=== PATIENT | female | born 1960 | race Caucasian/White ===

== ENCOUNTER 2017-02-05 10:13 | Emergency (ER) | payer MEDICARE ==
[~2017-02-05] VITALS: Ht 170.2 cm; Wt 100.0 kg
[2017-02-05 10:18] VITALS: BP 115/68; PULSE 82; RESP 15; TEMP 98.8; O2SAT 98
--- NOTE | 2017-02-05 11:21 | PD ---
HPI Chief Complaint: Medical Clearance Time Seen by Provider: 11:06 Travel History International Travel<30 days: No Contact w/Intl Traveler<30days: No Traveled to known affect area: No History of Present Illness HPI 56 year-old female presents to emergency room for evaluation a left lower extremity pain with assisted erythema mild edema. Patient states she has noticed this worsening of the last 2-3 days. Talked history of blood clots. Denies any recent illnesses, fever, or chills. No recollection of injury. No other symptoms to report. PFSH Past Medical History Medical History: Denies Significant Hx Social History Alcohol Use: No Tobacco Use: No Substance Use: No Allergies-Medications (Allergen,Severity, Reaction): Coded Allergies: Sulfa (Sulfonamide Antibiotics) (Verified Allergy, Severe, HIVES, 02/05/17) Reported Meds & Prescriptions Reported Meds & Active Scripts Active Ibuprofen 600 Mg Tab 600 Mg PO Q8H PRN Keflex (Cephalexin) 500 Mg Cap 500 Mg PO Q6H 5 Days Review of Systems Except as stated in HPI: all other systems reviewed are Neg Physical Exam Narrative GENERAL: Well-nourished female patient, no acute distress SKIN: Focused skin assessment warm/dry. HEAD: Atraumatic. Normocephalic. EYES: Pupils equal and round. No scleral icterus. No injection or drainage. ENT: No nasal bleeding or discharge. Mucous membranes pink and moist. NECK: Trachea midline. No JVD. CARDIOVASCULAR: Regular rate and rhythm. No murmur appreciated. RESPIRATORY: No accessory muscle use. Clear to auscultation. Breath sounds equal bilaterally. GASTROINTESTINAL: Abdomen soft, non-tender, nondistended. Hepatic and splenic margins not palpable. MUSCULOSKELETAL: No obvious deformities. No clubbing. No cyanosis. Edema to the left lower extremity erythema extending from the mid calf proximally to the knee. Posterior calf is very tender to palpate. Ulcers are palpable. Cap refills within normal limits. NEUROLOGICAL: Awake and alert. No obvious cranial nerve deficits. Motor grossly within normal limits. Normal speech. PSYCHIATRIC: Appropriate mood and affect; insight and judgment normal. Data Data Last Documented VS Vital Signs Date Time Temp Pulse Resp B/P (MAP) Pulse Ox O2 Delivery O2 Flow Rate FiO2 02/05/17 10:18 98.8 82 15 115/68 (84) 98 Orders Orders Us Leg Venous Doppler (02/05/17 ) MDM Medical Decision Making Medical Screen Exam Complete: Yes Emergency Medical Condition: Yes Medical Record Reviewed: Yes Differential Diagnosis DVT versus SVT versus cellulitis versus contact dermatitis Narrative Course 56 year-old female presents to emergency department for evaluation left lower extremity pain with erythema and edema. Ultrasound shows no DVT. Patient was treated for cellulitis. She is counseled on care and agrees to return immediately with any acute worsening symptoms. Diagnosis Primary Impression: Cellulitis and abscess of left leg Referrals: Primary Care Physician Patient Instructions: Cellulitis (ED), General Instructions Additional Instructions: Cool compresses to the affected area Follow-up with the primary care provider Return immediately if any acute worsening symptoms Med/Other Pt SpecificInfo: Prescription(s) given Scripts Ibuprofen (Ibuprofen) 600 Mg Tab 600 MG PO Q8H Y for PAIN, #30 TAB 0 Refills Prov: Radha Ortega 02/05/17 Cephalexin (Keflex) 500 Mg Cap 500 MG PO Q6H for Infection for 5 Days, CAP 0 Refills Prov: Radha Ortega 02/05/17 Disposition: 01 DISCHARGE HOME Condition: Stable Radha Ortega Feb 05, 2017 11:21
--- NOTE | 2017-02-05 12:20 | RADRPT ---
EXAM DATE/TIME: 02/05/2017 11:33 [facility] COMPARISON: No previous studies available for comparison. INDICATIONS : Left leg redness. MEDICAL HISTORY : Left leg redness. Left leg pain. SURGICAL HISTORY : Back surgery. ENCOUNTER: Initial ACUITY: 3 days PAIN SCORE: 7/10 LOCATION: Left leg TECHNIQUE: Venous ultrasound of the leg was performed from the inguinal ligament to the proximal calf. Real-frank e, color Doppler and spectral tracing, compression and augmentation techniques were used. FINDINGS: There is normal compressibility of the deep venous system from the inguinal region to the proximal ca lf. No echogenic clot is seen in the lumen of the common femoral, femoral, popliteal, and posterior tibial veins. There is a normal response of the venous system to proximal and distal augmentation an d respiration. CONCLUSION: Negative exam with no evidence of deep venous thrombosis. Denzel Head MD on February 05, 2017 at 12:18 Board Certified Radiologist. This report was verified electronically.
[2017-02-05] MEDS ORDERED: IBUP-232 PO (12:30)
[2017-02-05] MEDS ORDERED: CEPH-460 PO (12:30)
== END 2017-02-05 12:15 | disposition home or self-care (01) ==
LOC: NEPD 10:13
DX: L03.116 Cellulitis of left lower limb (principal)
CPT/HCPCS: 93971; 99284

== ENCOUNTER 2017-05-15 13:02 | Emergency (ER) | payer OTHER, MEDICARE ==
[~2017-05-15 13:02] MED LIST: CEPH-460 PO; IBUP-232 PO
[2017-05-15 13:04] VITALS: BP 137/80; PULSE 81; RESP 16; TEMP 98.2; O2SAT 97
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
[2017-05-15] MEDS ORDERED: oxyCODONE/ACETAMINOPHEN 10 MG/325 MG TAB PO ONE (14:00)
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
== END 2017-05-15 15:57 | disposition home or self-care (01) ==
LOC: NEPK 13:02
DX: S13.9XXA Sprain of joints and ligaments of unspecified parts of neck, initial encounter (principal); S40.011A Contusion of right shoulder, initial encounter; M62.838 Other muscle spasm; M54.5 Low back pain; G89.29 Other chronic pain; V49.9XXA Car occupant (driver) (passenger) injured in unspecified traffic accident, initial encounter; Z86.718 Personal history of other venous thrombosis and embolism; Z88.2 Allergy status to sulfonamides; Z79.899 Other long term (current) drug therapy
CPT/HCPCS: 72125; 72131; 73030; 99284

== ENCOUNTER 2017-10-11 11:27 | Emergency (ER) | payer MEDICARE, OTHER ==
[~2017-10-11] VITALS: Ht 162.6 cm; Wt 95.0 kg
[~2017-10-11 11:27] MED LIST changes: -CEPH-460 PO; +DULO1CAP3 PO; +GABA300C5 PO; -IBUP-232 PO; +MORP1TAB26 PO; +PERC10TA27 PO; +TIZA2CAP3 PO; +VENL75TA2 PO; +XARE20TA PO
[2017-10-11 11:46] VITALS: BP 123/70; PULSE 75; RESP 16; TEMP 98.1; O2SAT 97
[2017-10-11] MEDS ORDERED: SODIUM CHLORIDE 0.9% FLUSH 10 ML FLUSH IVF PRN (13:15)
--- NOTE | 2017-10-11 13:34 | PD ---
HPI Chief Complaint: Edema Time Seen by Provider: 12:58 Travel History International Travel<30 days: No Contact w/Intl Traveler<30days: No Traveled to known affect area: No History of Present Illness HPI 57-year-old female presents to the emergency department for multiple complaints. The patient states her main reason for coming to the emergency department his bilateral lower extremity edema for 2 days. She does report history of bilateral lower extremity edema in the past, but states he usually one extremity or the other and not quite as bad. She also reports diffuse abdominal pain for 2-3 days. She states it is sharp and pressure-like, 7/10. She states she feels like she has "triplets". Patient reports history of hysterectomy multiple laparoscopic surgeries for adhesions. She also had a bladder sling. Patient also reports shortness of breath. No chest pain. She reports chronic headaches since April. Patient denies any history of CHF. 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 Patient denies exacerbating or alleviating factors. Moderate severity. Patient states pain to legs is 7/10 , throbbing. PFSH Past Medical History Hx Anticoagulant Therapy: Yes (Xarelto) Diabetes: No Headaches: Yes Migraines: Yes Tetanus Vaccination: > 5 Years Influenza Vaccination: No Past Surgical History Hysterectomy: Yes (2004) Thoracic Surgery: Yes (FUSION L4) Family History Family Breast Cancer: Yes Family Myocardial Infarction: Yes Family Hypercholesterolemia: Yes Social History Alcohol Use: No Tobacco Use: Yes (1 PPD) Substance Use: No Allergies-Medications (Allergen,Severity, Reaction): Coded Allergies: Sulfa (Sulfonamide Antibiotics) (Verified Allergy, Severe, HIVES, 10/11/17) Reported Meds & Prescriptions Reported Meds & Active Scripts Active Reported Duloxetine DR (Duloxetine HCl) 60 Mg Capdr 60 Mg PO DAILY Venlafaxine ER 24 HR (Venlafaxine HCl) 75 Mg Tab 75 Mg PO DAILY Tizanidine (Tizanidine HCl) 2 Mg Cap 2 Mg PO TID Xarelto (Rivaroxaban) 20 Mg Tab 20 Mg PO DAILY Gabapentin 300 Mg Cap 300 Mg PO TID Percocet (Oxycodone-Acetaminophen) 10-325 mg Tab 1 Tab PO Q6H PRN Morphine ER (Morphine Sulfate) 60 Mg Tab 60 Mg PO Q8H Review of Systems Except as stated in HPI: all other systems reviewed are Neg Physical Exam Narrative GENERAL: Well-nourished, well-developed obese female patient, afebrile. SKIN: Focused skin assessment warm/dry. HEAD: Normocephalic. Atraumatic. EYES: No scleral icterus. No injection or drainage. NECK: Supple, trachea midline. No JVD or lymphadenopathy. CARDIOVASCULAR: Regular rate and rhythm without murmurs, gallops, or rubs. Bilateral radial and pedal pulses are 2+. RESPIRATORY: Breath sounds equal bilaterally. No accessory muscle use. Lung sounds are clear to auscultation. GASTROINTESTINAL: Abdomen soft, non-tender, nondistended. MUSCULOSKELETAL: No cyanosis. Bilateral lower extremities have 2+ edema. No erythema. BACK: Nontender without obvious deformity. No CVA tenderness. Data Data Last Documented VS Vital Signs Date Time Temp Pulse Resp B/P (MAP) Pulse Ox O2 Delivery O2 Flow Rate FiO2 10/11/17 17:05 10/11/17 17:04 74 18 96 Room Air 10/11/17 11:46 98.1 Orders Orders Electrocardiogram (10/11/17 13:12) B-Type Natriuretic Peptide (10/11/17 13:12) Ckmb (Isoenzyme) Profile (10/11/17 13:12) Complete Blood Count With Diff (10/11/17 13:12) Comprehensive Metabolic Panel (10/11/17 13:12) Magnesium (Mg) (10/11/17 13:12) Prothrombin Time / Inr (Pt) (10/11/17 13:12) Act Partial Throm Time (Ptt) (10/11/17 13:12) Troponin I (10/11/17 13:12) Chest, Single Ap (10/11/17 13:12) Ecg Monitoring (10/11/17 13:12) Bilateral Bp Monitoring (10/11/17 13:12) Iv Access Insert/Monitor (10/11/17 13:12) Oximetry (10/11/17 13:12) Oxygen Administration (10/11/17 13:12) Sodium Chloride 0.9% Flush (Ns Flush) (10/11/17 13:15) Ct Abd/Pel W/O Iv Contrast (10/11/17 ) Lipase (10/11/17 13:12) Us Leg Venous Doppler Bilat (10/11/17 ) Urinalysis - C+S If Indicated (10/11/17 13:15) Labs Laboratory Tests Test 10/11/17 12:40 10/11/17 13:00 Urine Color YELLOW Urine Turbidity CLEAR Urine pH 7.0 Urine Specific [place] 1.010 Urine Protein NEG mg/dL Urine Glucose (UA) NEG mg/dL Urine Ketones NEG mg/dL Urine Occult Blood NEG Urine Nitrite NEG Urine Bilirubin NEG Urine Urobilinogen LESS THAN 2.0 MG/DL Urine Leukocyte Esterase NEG Urine RBC 1 /hpf Urine WBC LESS THAN 1 /hpf Urine Squamous Epithelial Cells 5 /hpf Microscopic Urinalysis Comment CULT NOT INDICATED White Blood Count 6.6 TH/MM3 Red Blood Count 5.09 MIL/MM3 Hemoglobin 15.0 GM/DL Hematocrit 44.9 % Mean Corpuscular Volume 88.1 FL Mean Corpuscular Hemoglobin 29.4 PG Mean Corpuscular Hemoglobin Concent 33.4 % Red Cell Distribution Width 16.6 % Platelet Count 143 TH/MM3 Mean Platelet Volume 9.2 FL Neutrophils (%) (Auto) 65.6 % Lymphocytes (%) (Auto) 23.6 % Monocytes (%) (Auto) 7.7 % Eosinophils (%) (Auto) 2.7 % Basophils (%) (Auto) 0.4 % Neutrophils # (Auto) 4.3 TH/MM3 Lymphocytes # (Auto) 1.6 TH/MM3 Monocytes # (Auto) 0.5 TH/MM3 Eosinophils # (Auto) 0.2 TH/MM3 Basophils # (Auto) 0.0 TH/MM3 CBC Comment DIFF FINAL Differential Comment Prothrombin Time 9.6 SEC Prothromb Time International Ratio 0.9 RATIO Activated Partial Thromboplast Time 26.2 SEC Blood Urea Nitrogen 9 MG/DL Creatinine 0.78 MG/DL Random Glucose 82 MG/DL Total Protein 7.1 GM/DL Albumin 3.2 GM/DL Calcium Level 9.3 MG/DL Magnesium Level 2.2 MG/DL Alkaline Phosphatase 85 U/L Aspartate Amino Transf (AST/SGOT) 19 U/L Alanine Aminotransferase (ALT/SGPT) 33 U/L Total Bilirubin 0.3 MG/DL Sodium Level 142 MEQ/L Potassium Level 4.1 MEQ/L Chloride Level 109 MEQ/L Carbon Dioxide Level 25.3 MEQ/L Anion Gap 8 MEQ/L Estimat Glomerular Filtration Rate 76 ML/MIN Total Creatine Kinase 67 U/L Troponin I LESS THAN 0.02 NG/ML B-Type Natriuretic Peptide 48 PG/ML Lipase 151 U/L MDM Medical Decision Making Medical Screen Exam Complete: Yes Emergency Medical Condition: Yes Medical Record Reviewed: Yes Interpretation(s) Last Impressions Chest X-Ray 10/11/17 1312 Signed Impressions: Service Date/Time: Wednesday, October 11, 2017 13:25 - CONCLUSION: 1. No acute cardiopulmonary disease. George Cabrera MD Abdomen/Pelvis CT 10/11/17 0000 Signed Impressions: Service Date/Time: Wednesday, October 11, 2017 14:37 - CONCLUSION: Slight nodularity seen in the right middle lobe and lingula with subcentimeter nodules present minimal groundglass/dependent atelectatic changes noted. Osbaldo Huggins MD Us - CONCLUSION: Normal examination. Differential Diagnosis edema versus DVT versus COPD versus diverticulitis versus pancreatitis versus UTI Narrative Course 57-year-old female presents to the emergency department for multiple complaints. EKG, CBC, CMP, magnesium, troponin, CK, BNP, lipase, PTT, PT/INR, UA ordered and pending. Chest x-ray, CT abdomen/pelvis without contrast, CT ultrasound of the bilateral legs venous Doppler ordered and pending. EKG shows sinus rhythm, heart rate 64, no acute ST changes. CBC shows no acute abnormality. CMP shows no acute abnormality. Magnesium is 2.2. CK is 67. Troponin is less than 0.02. BNP is 48. Lipase is 151. Coags are unremarkable. UA is negative. Chest x-ray shows no acute cardiopulmonary disease. CT abdomen/pelvis shows no acute abnormality in abdomen/pelvis, she does have slight nodularity seen in the right middle lobe and lingula with subcentimeter nodules present minimal groundglass/dependent atelectatic changes noted. Patient does tell me that she has a history of nodules in the lungs. US is normal. I discussed the case my attending physician, Dr. Watson, who also examined patient. She is aware of all tests, results, treatment plan. She agrees with plan of care. Patient stable for discharge to follow-up with her primary care physician. The patient was discharged in stable condition with instructions, including return instructions and follow up instructions. Diagnosis Primary Impression: Bilateral lower extremity edema Additional Impression: Abdominal pain Qualified Codes: R10.84 - Generalized abdominal pain Referrals: Primary Care Physician call for appointment Patient Instructions: Abdominal Pain (ED), General Instructions, Leg Edema (ED) Additional Instructions: Elevate your bilateral lower extremities. Compression stockings. Follow-up with a primary care physician. Return to the emergency department for any acute worsening of symptoms. Med/Other Pt SpecificInfo: No Change to Meds Disposition: 01 DISCHARGE HOME Condition: Stable Martha Piper CHIARA October 11, 2017 13:34
[2017-10-11 13:56] LABS: AUTOMATED NEUTROPHIL # 4.3 TH/MM3 (1.8-7.7); BASOPHIL % 0.4 % (0.0-2.0); EOSINOPHIL # 0.2 TH/MM3 (0-0.4); EOSINOPHIL % 2.7 % (0.0-4.0); HEMATOCRIT 44.9 % (35.0-46.0); LYMPH % 23.6 % (9.0-44.0); LYMPHOCYTE # 1.6 TH/MM3 (1.0-4.8); MEAN CELL VOLUME 88.1 FL (80.0-100.0); MEAN CORPUSCULAR HEMOGLOBIN 29.4 PG (27.0-34.0); MEAN CORPUSCULAR HGB CONC 33.4 % (32.0-36.0); MEAN PLATELET VOLUME 9.2 FL (7.0-11.0); MONO % 7.7 % (0.0-8.0); MONOCYTE # 0.5 TH/MM3 (0-0.9); NEUT % 65.6 % (16.0-70.0); PLATELET COUNT 143 TH/MM3 (150-450); RED BLOOD COUNT 5.09 MIL/MM3 (4.00-5.30); RED CELL DISTRIBUTION WIDTH 16.6 % (11.6-17.2); WHITE BLOOD COUNT 6.6 TH/MM3 (4.0-11.0)
[2017-10-11 14:06] LABS: INTERNATIONAL NORMALIZED RATIO 0.9 RATIO; PROTHROMBIN TIME - PATIENT 9.6 SEC (9.8-11.6)
[2017-10-11 14:07] LABS: BILIRUBIN, URINE NEG (NEG); BLOOD, URINE NEG (NEG); GLUCOSE,URINE NEG (NEG); KETONE, URINE NEG (NEG); NITRITE,URINE NEG (NEG); SQUAMOUS EPITHELIAL CELL URINE 5 /hpf (0-5); URINE COLOR YELLOW (YELLW/STRAW); URINE LEUKOCYTE ESTERASE NEG (NEG)
[2017-10-11 14:21] LABS: ALBUMIN 3.2 GM/DL (3.4-5.0); ALT (GPT) 33 U/L (10-53); AST (GOT) 19 U/L (15-37); BICARBONATE 25.3 MEQ/L (21.0-32.0); BLOOD UREA NITROGEN 9 MG/DL (7-18); CALCIUM 9.3 MG/DL (8.5-10.1); CHLORIDE 109 MEQ/L (98-107); CREATININE 0.78 MG/DL (0.50-1.00); GLOMERULAR FILTRATION RATE 76 ML/MIN (>89); GLUCOSE,RANDOM 82 MG/DL (74-106); MAGNESIUM 2.2 MG/DL (1.5-2.5); SODIUM (NA) 142 MEQ/L (136-145)
[2017-10-11 14:25] LABS: ALKALINE PHOSPHATASE 85 U/L (45-117); TOTAL BILIRUBIN ADULT 0.3 MG/DL (0.2-1.0); TOTAL PROTEIN 7.1 GM/DL (6.4-8.2); TROPONIN I LESS THAN 0.02 NG/ML (0.02-0.05)
--- NOTE | 2017-10-11 14:32 | RADRPT ---
EXAM DATE/TIME: 10/11/2017 13:25 [facility] COMPARISON: No previous studies available for comparison. INDICATIONS : Chest pain MEDICAL HISTORY : Emphysema. SURGICAL HISTORY : None. ENCOUNTER: Initial ACUITY: 2 days PAIN SCORE: 7/10 LOCATION: Bilateral chest FINDINGS: A single view of the chest demonstrates the lungs to be symmetrically aerated without evidence of mas s, infiltrate or effusion. The cardiomediastinal contours are unremarkable. Osseous structures are intact. CONCLUSION: 1. No acute cardiopulmonary disease. George Cabrera MD on October 11, 2017 at 14:03 Board Certified Radiologist. This report was verified electronically.
--- NOTE | 2017-10-11 14:53 | RADRPT ---
EXAM DATE/TIME: 10/11/2017 14:37 [facility] COMPARISON: No previous studies available for comparison. INDICATIONS : Abdominal swelling and short of breath with diffuse abdominal pain. ORAL CONTRAST: No oral contrast ingested. RADIATION DOSE: 21.65 CTDIvol (mGy) MEDICAL HISTORY : Deep venous thrombosis. SURGICAL HISTORY : None. ENCOUNTER: Initial ACUITY: 1 day PAIN SCALE: 5/10 LOCATION: abdomen TECHNIQUE: Volumetric scanning of the abdomen and pelvis was performed. Using automated exposure control and ad justment of the mA and/or kV according to patient size, radiation dose was kept as low as reasonably achievable to obtain optimal diagnostic quality images. DICOM format image data is available electro nically for review and comparison. FINDINGS: Minimal groundglass infiltrate and atelectasis at the lung bases with slight nodularity seen in the l ingula and right middle lobe. No pleural or pericardial effusions are seen. Liver, gallbladder, splee n, pancreas, adrenal, kidneys are unremarkable. No evidence of bowel obstruction. Urinary bladder unr emarkable. The patient is status post hysterectomy. There is no free fluid or free air. No adenopathy . Osseous structures demonstrate posterior rods and transpedicular screw fixation at L4-S1. CONCLUSION: Slight nodularity seen in the right middle lobe and lingula with subcentimeter nodules present minima l groundglass/dependent atelectatic changes noted. Osbaldo Huggins MD on October 11, 2017 at 14:50 Board Certified Radiologist. This report was verified electronically.
--- NOTE | 2017-10-11 16:41 | RADRPT ---
EXAM DATE/TIME: 10/11/2017 15:36 [facility] COMPARISON: No previous studies available for comparison. INDICATIONS : Bilateral leg edema. MEDICAL HISTORY : Deep venous thrombosis. Migraines. Neck pain. SURGICAL HISTORY : Hysterectomy. Spinal surgery fusion L4 to S1. Bladder suspension. ENCOUNTER: Initial ACUITY: 4 - 6 days PAIN SCORE: 5/10 LOCATION: Bilateral legs. TECHNIQUE: Venous ultrasound of the left and right leg was performed from the inguinal ligament to the proximal calf. Real-time, color Doppler and spectral tracing, compression and augmentation techniques were us ed. FINDINGS: RIGHT LEG: There is normal compressibility of the deep venous system from the inguinal region to the proximal ca lf. No echogenic clot is seen in the lumen of the common femoral, femoral, popliteal, and posterior tibial veins. There is a normal response of the venous system to proximal and distal augmentation an d respiration. LEFT LEG: There is normal compressibility of the deep venous system from the inguinal region to the proximal ca lf. No echogenic clot is seen in the lumen of the common femoral, femoral, popliteal, and posterior tibial veins. There is a normal response of the venous system to proximal and distal augmentation an d respiration. CONCLUSION: Normal examination. Osbaldo Huggins MD on October 11, 2017 at 16:39 Board Certified Radiologist. This report was verified electronically.
[2017-10-11 17:04] VITALS: BP 135/68; PULSE 74; RESP 18; O2SAT 96
--- NOTE | 2017-10-12 13:58 | EKG ---
Date Performed: 10/11/2017 Time Performed: 14:05:57 PTAGE: 57 years EKG: Sinus rhythm MARKED LEFT AXIS DEVIATION LOW QRS VOLTAGE IN EXTREMITY LEADS ABNORMAL ECG NO PREVIOUS TRACING DOCTOR: Evelio Alejandre Interpretating Date/Time 10/12/2017 13:55:36
--- NOTE | 2017-10-13 07:30 | PD ---
Physical Exam Narrative I, Dr. Watson, have reviewed the advance practice practitioner's documentation and am in agreement, met with the patient face to face, made the diagnosis, and the medical decision making was done by me. *My assessment and Findings: Patient presents to the emergency department complaining of bilateral lower extremity 2 days also reporting some abdominal pain 2-3 days. As well as shortness of breath but denies chest pain. History of DVT and is on Xarelto. She is afebrile with stable vital signs on exam she has bilateral nonpitting lower extremity edema. Chest x-ray was negative for any acute changes. CT abdomen and pelvis showed nodularity in the right middle lobe and lingula. Bilateral ultrasound of lower extremities were negative for DVT. Urinalysis and BMP were within normal limits. Platelet were slightly decreased. EKG showed left axis deviation, sinus rhythm, low voltage. Patient was discharged and advised to follow-up with primary care physician as well as elevate her lower extremities above the level of the heart. Data Data Last Documented VS Vital Signs Date Time Temp Pulse Resp B/P (MAP) Pulse Ox O2 Delivery O2 Flow Rate FiO2 10/11/17 17:05 10/11/17 17:04 74 18 96 Room Air 10/11/17 11:46 98.1 Orders Orders Electrocardiogram (10/11/17 13:12) B-Type Natriuretic Peptide (10/11/17 13:12) Ckmb (Isoenzyme) Profile (10/11/17 13:12) Complete Blood Count With Diff (10/11/17 13:12) Comprehensive Metabolic Panel (10/11/17 13:12) Magnesium (Mg) (10/11/17 13:12) Prothrombin Time / Inr (Pt) (10/11/17 13:12) Act Partial Throm Time (Ptt) (10/11/17 13:12) Troponin I (10/11/17 13:12) Chest, Single Ap (10/11/17 13:12) Ecg Monitoring (10/11/17 13:12) Bilateral Bp Monitoring (10/11/17 13:12) Iv Access Insert/Monitor (10/11/17 13:12) Oximetry (10/11/17 13:12) Oxygen Administration (10/11/17 13:12) Sodium Chloride 0.9% Flush (Ns Flush) (10/11/17 13:15) Ct Abd/Pel W/O Iv Contrast (10/11/17 ) Lipase (10/11/17 13:12) Us Leg Venous Doppler Bilat (10/11/17 ) Urinalysis - C+S If Indicated (10/11/17 13:15) Ed Discharge Order (10/11/17 17:12) Labs Laboratory Tests Test 10/11/17 12:40 10/11/17 13:00 Urine Color YELLOW Urine Turbidity CLEAR Urine pH 7.0 Urine Specific [place] 1.010 Urine Protein NEG mg/dL Urine Glucose (UA) NEG mg/dL Urine Ketones NEG mg/dL Urine Occult Blood NEG Urine Nitrite NEG Urine Bilirubin NEG Urine Urobilinogen LESS THAN 2.0 MG/DL Urine Leukocyte Esterase NEG Urine RBC 1 /hpf Urine WBC LESS THAN 1 /hpf Urine Squamous Epithelial Cells 5 /hpf Microscopic Urinalysis Comment CULT NOT INDICATED White Blood Count 6.6 TH/MM3 Red Blood Count 5.09 MIL/MM3 Hemoglobin 15.0 GM/DL Hematocrit 44.9 % Mean Corpuscular Volume 88.1 FL Mean Corpuscular Hemoglobin 29.4 PG Mean Corpuscular Hemoglobin Concent 33.4 % Red Cell Distribution Width 16.6 % Platelet Count 143 TH/MM3 Mean Platelet Volume 9.2 FL Neutrophils (%) (Auto) 65.6 % Lymphocytes (%) (Auto) 23.6 % Monocytes (%) (Auto) 7.7 % Eosinophils (%) (Auto) 2.7 % Basophils (%) (Auto) 0.4 % Neutrophils # (Auto) 4.3 TH/MM3 Lymphocytes # (Auto) 1.6 TH/MM3 Monocytes # (Auto) 0.5 TH/MM3 Eosinophils # (Auto) 0.2 TH/MM3 Basophils # (Auto) 0.0 TH/MM3 CBC Comment DIFF FINAL Differential Comment Prothrombin Time 9.6 SEC Prothromb Time International Ratio 0.9 RATIO Activated Partial Thromboplast Time 26.2 SEC Blood Urea Nitrogen 9 MG/DL Creatinine 0.78 MG/DL Random Glucose 82 MG/DL Total Protein 7.1 GM/DL Albumin 3.2 GM/DL Calcium Level 9.3 MG/DL Magnesium Level 2.2 MG/DL Alkaline Phosphatase 85 U/L Aspartate Amino Transf (AST/SGOT) 19 U/L Alanine Aminotransferase (ALT/SGPT) 33 U/L Total Bilirubin 0.3 MG/DL Sodium Level 142 MEQ/L Potassium Level 4.1 MEQ/L Chloride Level 109 MEQ/L Carbon Dioxide Level 25.3 MEQ/L Anion Gap 8 MEQ/L Estimat Glomerular Filtration Rate 76 ML/MIN Total Creatine Kinase 67 U/L Troponin I LESS THAN 0.02 NG/ML B-Type Natriuretic Peptide 48 PG/ML Lipase 151 U/L [facility] Supervised Visit with WINTER: Yes Diagnosis Primary Impression: Bilateral lower extremity edema Additional Impression: Abdominal pain Qualified Codes: R10.84 - Generalized abdominal pain Referrals: Primary Care Physician call for appointment Patient Instructions: General Instructions, Leg Edema (ED), Abdominal Pain (ED) Departure Forms: Tests/Procedures Additional Instruction: Elevate your bilateral lower extremities. Compression stockings. Follow-up with a primary care physician. Return to the emergency department for any acute worsening of symptoms. Disposition: 01 DISCHARGE HOME Condition: Stable Radha Watson MD October 13, 2017 07:30
== END 2017-10-11 17:28 | disposition home or self-care (01) ==
LOC: NEPE 11:27
DX: R60.0 Localized edema (principal); R10.84 Generalized abdominal pain; R94.31 Abnormal electrocardiogram [ECG] [EKG]; F17.200 Nicotine dependence, unspecified, uncomplicated; Z79.01 Long term (current) use of anticoagulants; Z86.718 Personal history of other venous thrombosis and embolism
CPT/HCPCS: 71045; 74176; 80053; 81001; 82550; 83690; 83735; 83880; 84484; 85025; 85610; 85730; 93005; 93970

== ENCOUNTER 2017-12-16 02:32 | Inpatient (IN) ==
[2017-12-16] MEDS ORDERED: Ketorolac Inj 30 MG/ML (IVP) Vial IV.PUSH ONE (02:52)
[2017-12-16] MEDS ORDERED: Famotidine PF Inj 20 MG/2 ML Vial IV.PUSH ONE (02:53)
[2017-12-16 03:12] LABS: Baso % (Auto) 0.2 % (0.0-2.0); Eos # (Auto) 0.1 th/mm3 (0.0-0.4); Eos % (Auto) 0.3 % (0.0-4.0); Hematocrit 49.5 % (35.0-46.0); Hemoglobin 16.7 gm/dL (11.6-15.3); Lymph # (Auto) 1.7 th/mm3 (1.0-4.8); Lymph % (Auto) 8.3 % (9.0-44.0); Mean Corpuscular HGB Conc 33.8 % (32.0-36.0); Mean Corpuscular Volume 88.6 fL (80.0-100.0); Mean Platelet Volume 9.9 fL (7.0-11.0); Mono # (Auto) 0.5 th/mm3 (0.0-0.9); Mono % (Auto) 2.5 % (0.0-8.0); Neut # (Auto) 18.7 th/mm3 (1.8-7.7); Neut % (Auto) 88.7 % (16.0-70.0); Platelet Count 200 th/mm3 (150-450); Red Blood Count 5.58 mil/mm3 (4.00-5.30); Red Cell Distribution Width 16.4 % (11.6-17.2)
--- NOTE | 2017-12-16 03:32 | ED ---
HPI General Chief Complaint: Abdominal Pain Stated Complaint: abdominal pain Time Seen by Provider: 12/16/17 02:51 Source: patient and EMS Mode of arrival: EMS History of Present Illness HPI narrative: Patient reports that she was feeling short of breath she is a smoker with emphysema she used an inhaler which was ipratropium mean and suddenly she felt severe abdominal pain substernal and epigastric burning constant 10 out of 10 , she immediately called 911 paramedics , arrived to find her in a smoky atmosphere in cigarette smoke filled house. She was not really telling them much just moaning and crying and holding her epigastrium and rocking it was very hard to get a good history out of her as per paramedics. Patient arrives holding her abdomen still rocking and is a poor historian except telling me the same story she told the paramedics that she used an inhaler and sudden onset of shortness of breath she took nothing to alleviate the symptoms they continued in the ER constant localized epigastrium burning MD complaint: abdominal pain Onset (ago): minute(s) Pain Consistency: constant Location: epigastric Severity scale (1-10): >10 Exacerbating factors: other (She thinks inhaling if the TrophAmine HFA was the precipitating factor) Related Data Home Medications Medication Instructions Recorded Confirmed duloxetine [Cymbalta] See Label Instructions .ROUTE 12/16/17 12/16/17 .COMPLEX morphine 30 mg PO BID PRN MDD 60 12/16/17 12/16/17 oxycodone-acetaminophen [Percocet] 1 tab PO BID PRN 12/16/17 12/16/17 rivaroxaban [Xarelto] 20 mg PO DAILY 12/16/17 12/16/17 Allergies Allergy/AdvReac Type Severity Reaction Status Date / Time Sulfa (Sulfonamide Allergy Severe HIVES Verified 10/11/17 12:43 Antibiotics) Review of Systems ROS Unobtainable other Except as stated in HPI: all other systems reviewed are negative Gastrointestinal Reports as per HPI, Reports abdominal pain (sudden onset) and Reports nausea PMFSH Social History Social History Substance History: No History of Abuse Smoking Status: Heavy tobacco smoker Tobacco Type: Cigarettes How Often Do You Have a Drink Containing Alcohol: Monthly or less Recent Travel in [facility] within the Last 8 Weeks: No Recent Out of Country Travel within the Last 8 Weeks: No Immunization History Tetanus Immunization: >5 Years Hx Influenza Vaccine This Season: No Exam Narrative Exam Narrative: GENERAL: Holding her abdomen rocking in pain screaming and moaning SKIN: Warm and dry. HEAD: Atraumatic. Normocephalic. EYES: Pupils equal and round. No scleral icterus. No injection or drainage. ENT: No nasal bleeding or discharge. Mucous membranes pink and moist. NECK: Trachea midline. No JVD. CARDIOVASCULAR: Regular rate and rhythm. RESPIRATORY: No accessory muscle use. Clear to auscultation. Breath sounds equal bilaterally. GASTROINTESTINAL: Abdomen epigastric tenderness-tender, +distended. Hepatic and splenic margins not palpable. MUSCULOSKELETAL: Extremities without clubbing, cyanosis, or edema. No obvious deformities. NEUROLOGICAL: Awake and alert. No obvious cranial nerve deficits. Motor grossly within normal limits. Five out of 5 muscle strength in the arms and legs. Normal speech. PSYCHIATRIC: Appropriate mood and affect; insight and judgment normal. Course Initial Documented Vital Signs Temperature 98.6 F 12/16/17 02:47 Pulse Rate 66 12/16/17 02:47 Respiratory Rate 17 12/16/17 02:47 Blood Pressure 149/71 H 12/16/17 02:47 Pulse Oximetry 95 12/16/17 02:47 Last Documented Vital Signs Temperature 98.5 F 12/20/17 18:24 Pulse Rate 64 12/20/17 20:04 Respiratory Rate 16 12/20/17 20:04 Blood Pressure 99/52 L 12/20/17 18:24 Pulse Oximetry 93 L 12/20/17 18:24 Critical Care Time Total Critical Care Time: 30 Medical Decision Making [facility] Narrative Medical decision making narrative: Patient is given Pepcid IV Ativan and Toradol she then falls asleep has no more complaints of pain , CAT scan is done show peripancreatic stranding and consistent with pancreatitis and Lipase very elevated ICU admit empric antibiotics with Zosyn and 3 liters NS and ICU Dr Dixon and Christiano accept the admission to ICU Differential Diagnosis Differential Diagnosis: Differential diagnosis includes gastritis versus pancreatitis versus gallbladder disease versus colitis NOS versus small bowel obstruction versus ileus versus esophagitis other Lab Data Result diagrams: 12/20/17 06:22 12/20/17 06:22 Lab Results 12/16/17 12/16/17 12/16/17 Range/Units 03:05 03:46 03:46 WBC 21.0 H (4.0-11.0) th/mm3 RBC 5.58 H (4.00-5.30) mil/mm3 Hgb 16.7 H (11.6-15.3) gm/dL Hct 49.5 H (35.0-46.0) % MCV 88.6 (80.0-100.0) fL MCH 30.0 (27.0-34.0) pg MCHC 33.8 (32.0-36.0) % RDW 16.4 (11.6-17.2) % Plt Count 200 (150-450) th/mm3 MPV 9.9 (7.0-11.0) fL Prelim Diff (Auto) Neut % (Auto) 88.7 H (16.0-70.0) % Lymph % (Auto) 8.3 L (9.0-44.0) % [place] % (Auto) 2.5 (0.0-8.0) % Eos % (Auto) 0.3 (0.0-4.0) % Baso % (Auto) 0.2 (0.0-2.0) % Neut # (Auto) 18.7 H (1.8-7.7) th/mm3 Lymph # (Auto) 1.7 (1.0-4.8) th/mm3 [place] # (Auto) 0.5 (0.0-0.9) th/mm3 Eos # (Auto) 0.1 (0.0-0.4) th/mm3 Baso # (Auto) 0.0 (0.0-0.2) th/mm3 WBC Differential . Seg Neuts % (Manual) (16-70) % Band Neuts % (Manual) (0-6) % Lymphocytes % (Manual) (9-44) % Monocytes % (Manual) (0-8) % Abs Neuts (Manual) (1.8-7.7) th/mm3 Differential Comment Auto diff final Platelet Estimate (Normal) Platelet Morphology (Normal) PT (9.8-11.6) sec INR Ratio APTT (24.3-30.1) sec Puncture Site Patient Temperature O2 Saturation (90-100) % ABG pH (7.380-7.420) ABG pCO2 (38-42) mmHg ABG pO2 (61-120) mmHG ABG HCO3 (22-26) mmol/L ABG O2 Content (12.0-20.0) Vol % ABG Base Excess (-2-2) mmol/L ABG Methemoglobin (0-2) % Jayden Test Hemoglobin (12.0-16.0) G/DL Carboxyhemoglobin (0-4) % O2 Delivery Device Liter Flow L/M Critical Value Sodium 144 (136-145) meq/L Potassium 4.0 (3.5-5.1) meq/L Chloride 111 H (98-107) meq/L Carbon Dioxide 28.2 (21.0-32.0) meq/L Anion Gap 5 (5-15) meq/L BUN 19 H (7-18) mg/dL Creatinine 1.05 H (0.50-1.00) mg/dL Estimated GFR 54 L (>89) mL/min POC Glucose (68-110) mg/dl Random Glucose 152 H (74-106) mg/dL Calcium 9.1 (8.5-10.1) mg/dL Phosphorus 2.7 (2.5-4.9) mg/dL Magnesium 1.9 (1.5-2.5) mg/dL Total Bilirubin 0.8 (0.2-1.0) mg/dL Direct Bilirubin (0.0-0.2) mg/dL GGT (5-55) U/L AST 341 H (15-37) U/L ALT 272 H (10-53) U/L Alkaline Phosphatase 141 H (45-117) U/L Lactate Dehydrogenase 633 H (84-246) U/L Total Creatine Kinase (26-192) U/L Troponin I (0.02-0.05) ng/mL Total Protein 7.7 (6.4-8.2) g/dL Albumin 3.7 (3.4-5.0) g/dL Triglycerides (42-150) mg/dL Cholesterol (120-200) mg/dL LDL Cholesterol, Calc (0-99) mg/dL HDL Cholesterol (40.0-60.0) mg/dL Cholesterol/HDL Ratio Ratio Lipase 61939 H (73-393) U/L Serum Alcohol Less than 3 (0-5) mg/dL IgG Total (694-1618) mg/dL IgG1 (382-929) mg/dL IgG2 (241-700) mg/dL IgG3 (22-178) mg/dL IgG4 (4-86) mg/dL RYLAN Screen (Neg) Hepatitis A IgM Ab (Nonreactive) Hep Bs Antigen (Nonreactive) Hep B Core IgM Ab (Nonreactive) Hep C IgG Ab (Nonreactive) 12/16/17 12/16/17 12/16/17 Range/Units 03:46 03:46 06:54 WBC (4.0-11.0) th/mm3 RBC (4.00-5.30) mil/mm3 Hgb (11.6-15.3) gm/dL Hct (35.0-46.0) % MCV (80.0-100.0) fL MCH (27.0-34.0) pg MCHC (32.0-36.0) % RDW (11.6-17.2) % Plt Count (150-450) th/mm3 MPV (7.0-11.0) fL Prelim Diff (Auto) Neut % (Auto) (16.0-70.0) % Lymph % (Auto) (9.0-44.0) % [place] % (Auto) (0.0-8.0) % Eos % (Auto) (0.0-4.0) % Baso % (Auto) (0.0-2.0) % Neut # (Auto) (1.8-7.7) th/mm3 Lymph # (Auto) (1.0-4.8) th/mm3 [place] # (Auto) (0.0-0.9) th/mm3 Eos # (Auto) (0.0-0.4) th/mm3 Baso # (Auto) (0.0-0.2) th/mm3 WBC Differential Seg Neuts % (Manual) (16-70) % Band Neuts % (Manual) (0-6) % Lymphocytes % (Manual) (9-44) % Monocytes % (Manual) (0-8) % Abs Neuts (Manual) (1.8-7.7) th/mm3 Differential Comment Platelet Estimate (Normal) Platelet Morphology (Normal) PT 10.3 (9.8-11.6) sec INR 1.0 Ratio APTT 24.0 L (24.3-30.1) sec Puncture Site Patient Temperature O2 Saturation (90-100) % ABG pH (7.380-7.420) ABG pCO2 (38-42) mmHg ABG pO2 (61-120) mmHG ABG HCO3 (22-26) mmol/L ABG O2 Content (12.0-20.0) Vol % ABG Base Excess (-2-2) mmol/L ABG Methemoglobin (0-2) % Jayden Test Hemoglobin (12.0-16.0) G/DL Carboxyhemoglobin (0-4) % O2 Delivery Device Liter Flow L/M Critical Value Sodium (136-145) meq/L Potassium (3.5-5.1) meq/L Chloride (98-107) meq/L Carbon Dioxide (21.0-32.0) meq/L Anion Gap (5-15) meq/L BUN (7-18) mg/dL Creatinine (0.50-1.00) mg/dL Estimated GFR (>89) mL/min POC Glucose (68-110) mg/dl Random Glucose (74-106) mg/dL Calcium (8.5-10.1) mg/dL Phosphorus Cancelled (2.5-4.9) mg/dL Magnesium Cancelled (1.5-2.5) mg/dL Total Bilirubin (0.2-1.0) mg/dL Direct Bilirubin (0.0-0.2) mg/dL GGT (5-55) U/L AST (15-37) U/L ALT (10-53) U/L Alkaline Phosphatase (45-117) U/L Lactate Dehydrogenase Cancelled (84-246) U/L Total Creatine Kinase (26-192) U/L Troponin I (0.02-0.05) ng/mL Total Protein (6.4-8.2) g/dL Albumin (3.4-5.0) g/dL Triglycerides (42-150) mg/dL Cholesterol (120-200) mg/dL LDL Cholesterol, Calc (0-99) mg/dL HDL Cholesterol (40.0-60.0) mg/dL Cholesterol/HDL Ratio Ratio Lipase (73-393) U/L Serum Alcohol (0-5) mg/dL IgG Total (694-1618) mg/dL IgG1 (382-929) mg/dL IgG2 (241-700) mg/dL IgG3 (22-178) mg/dL IgG4 (4-86) mg/dL RYLAN Screen (Neg) Hepatitis A IgM Ab (Nonreactive) Hep Bs Antigen (Nonreactive) Hep B Core IgM Ab (Nonreactive) Hep C IgG Ab (Nonreactive) 12/16/17 12/16/17 12/16/17 Range/Units 12:35 12:35 12:35 WBC (4.0-11.0) th/mm3 RBC (4.00-5.30) mil/mm3 Hgb (11.6-15.3) gm/dL Hct (35.0-46.0) % MCV (80.0-100.0) fL MCH (27.0-34.0) pg MCHC (32.0-36.0) % RDW (11.6-17.2) % Plt Count (150-450) th/mm3 MPV (7.0-11.0) fL Prelim Diff (Auto) Neut % (Auto) (16.0-70.0) % Lymph % (Auto) (9.0-44.0) % [place] % (Auto) (0.0-8.0) % Eos % (Auto) (0.0-4.0) % Baso % (Auto) (0.0-2.0) % Neut # (Auto) (1.8-7.7) th/mm3 Lymph # (Auto) (1.0-4.8) th/mm3 [place] # (Auto) (0.0-0.9) th/mm3 Eos # (Auto) (0.0-0.4) th/mm3 Baso # (Auto) (0.0-0.2) th/mm3 WBC Differential Seg Neuts % (Manual) (16-70) % Band Neuts % (Manual) (0-6) % Lymphocytes % (Manual) (9-44) % Monocytes % (Manual) (0-8) % Abs Neuts (Manual) (1.8-7.7) th/mm3 Differential Comment Platelet Estimate (Normal) Platelet Morphology (Normal) PT (9.8-11.6) sec INR Ratio APTT (24.3-30.1) sec Puncture Site Patient Temperature O2 Saturation (90-100) % ABG pH (7.380-7.420) ABG pCO2 (38-42) mmHg ABG pO2 (61-120) mmHG ABG HCO3 (22-26) mmol/L ABG O2 Content (12.0-20.0) Vol % ABG Base Excess (-2-2) mmol/L ABG Methemoglobin (0-2) % Jayden Test Hemoglobin (12.0-16.0) G/DL Carboxyhemoglobin (0-4) % O2 Delivery Device Liter Flow L/M Critical Value Sodium 145 (136-145) meq/L Potassium 3.4 L (3.5-5.1) meq/L Chloride 110 H (98-107) meq/L Carbon Dioxide 26.5 (21.0-32.0) meq/L Anion Gap 9 (5-15) meq/L BUN 16 (7-18) mg/dL Creatinine 0.93 (0.50-1.00) mg/dL Estimated GFR 62 L (>89) mL/min POC Glucose (68-110) mg/dl Random Glucose 115 H (74-106) mg/dL Calcium 8.9 (8.5-10.1) mg/dL Phosphorus (2.5-4.9) mg/dL Magnesium (1.5-2.5) mg/dL Total Bilirubin (0.2-1.0) mg/dL Direct Bilirubin (0.0-0.2) mg/dL GGT (5-55) U/L AST (15-37) U/L ALT (10-53) U/L Alkaline Phosphatase (45-117) U/L Lactate Dehydrogenase (84-246) U/L Total Creatine Kinase (26-192) U/L Troponin I (0.02-0.05) ng/mL Total Protein (6.4-8.2) g/dL Albumin (3.4-5.0) g/dL Triglycerides 61 Cancelled Cancelled (42-150) mg/dL Cholesterol 115 L Cancelled (120-200) mg/dL LDL Cholesterol, Calc 50 Cancelled (0-99) mg/dL HDL Cholesterol 52.5 Cancelled (40.0-60.0) mg/dL Cholesterol/HDL Ratio 2.19 Cancelled Ratio Lipase (73-393) U/L Serum Alcohol (0-5) mg/dL IgG Total (694-1618) mg/dL IgG1 (382-929) mg/dL IgG2 (241-700) mg/dL IgG3 (22-178) mg/dL IgG4 (4-86) mg/dL RYLAN Screen (Neg) Hepatitis A IgM Ab (Nonreactive) Hep Bs Antigen (Nonreactive) Hep B Core IgM Ab (Nonreactive) Hep C IgG Ab (Nonreactive) 12/16/17 12/16/17 12/16/17 Range/Units 12:35 12:35 12:35 WBC (4.0-11.0) th/mm3 RBC (4.00-5.30) mil/mm3 Hgb (11.6-15.3) gm/dL Hct (35.0-46.0) % MCV (80.0-100.0) fL MCH (27.0-34.0) pg MCHC (32.0-36.0) % RDW (11.6-17.2) % Plt Count (150-450) th/mm3 MPV (7.0-11.0) fL Prelim Diff (Auto) Neut % (Auto) (16.0-70.0) % Lymph % (Auto) (9.0-44.0) % [place] % (Auto) (0.0-8.0) % Eos % (Auto) (0.0-4.0) % Baso % (Auto) (0.0-2.0) % Neut # (Auto) (1.8-7.7) th/mm3 Lymph # (Auto) (1.0-4.8) th/mm3 [place] # (Auto) (0.0-0.9) th/mm3 Eos # (Auto) (0.0-0.4) th/mm3 Baso # (Auto) (0.0-0.2) th/mm3 WBC Differential Seg Neuts % (Manual) (16-70) % Band Neuts % (Manual) (0-6) % Lymphocytes % (Manual) (9-44) % Monocytes % (Manual) (0-8) % Abs Neuts (Manual) (1.8-7.7) th/mm3 Differential Comment Platelet Estimate (Normal) Platelet Morphology (Normal) PT (9.8-11.6) sec INR Ratio APTT (24.3-30.1) sec Puncture Site Patient Temperature O2 Saturation (90-100) % ABG pH (7.380-7.420) ABG pCO2 (38-42) mmHg ABG pO2 (61-120) mmHG ABG HCO3 (22-26) mmol/L ABG O2 Content (12.0-20.0) Vol % ABG Base Excess (-2-2) mmol/L ABG Methemoglobin (0-2) % Jayden Test Hemoglobin (12.0-16.0) G/DL Carboxyhemoglobin (0-4) % O2 Delivery Device Liter Flow L/M Critical Value Sodium (136-145) meq/L Potassium (3.5-5.1) meq/L Chloride (98-107) meq/L Carbon Dioxide (21.0-32.0) meq/L Anion Gap (5-15) meq/L BUN (7-18) mg/dL Creatinine (0.50-1.00) mg/dL Estimated GFR (>89) mL/min POC Glucose (68-110) mg/dl Random Glucose (74-106) mg/dL Calcium (8.5-10.1) mg/dL Phosphorus (2.5-4.9) mg/dL Magnesium (1.5-2.5) mg/dL Total Bilirubin (0.2-1.0) mg/dL Direct Bilirubin (0.0-0.2) mg/dL GGT (5-55) U/L AST (15-37) U/L ALT (10-53) U/L Alkaline Phosphatase (45-117) U/L Lactate Dehydrogenase (84-246) U/L Total Creatine Kinase (26-192) U/L Troponin I (0.02-0.05) ng/mL Total Protein (6.4-8.2) g/dL Albumin (3.4-5.0) g/dL Triglycerides (42-150) mg/dL Cholesterol (120-200) mg/dL LDL Cholesterol, Calc (0-99) mg/dL HDL Cholesterol (40.0-60.0) mg/dL Cholesterol/HDL Ratio Ratio Lipase (73-393) U/L Serum Alcohol (0-5) mg/dL IgG Total 967 (694-1618) mg/dL IgG1 509 (382-929) mg/dL IgG2 313 (241-700) mg/dL IgG3 40 (22-178) mg/dL IgG4 55.5 (4-86) mg/dL RYLAN Screen Neg (Neg) Hepatitis A IgM Ab Nonreactive (Nonreactive) Hep Bs Antigen Nonreactive (Nonreactive) Hep B Core IgM Ab Nonreactive (Nonreactive) Hep C IgG Ab Nonreactive (Nonreactive) 12/17/17 12/17/17 12/17/17 Range/Units 05:17 05:17 05:17 WBC 16.4 H (4.0-11.0) th/mm3 RBC 5.18 (4.00-5.30) mil/mm3 Hgb 15.3 (11.6-15.3) gm/dL Hct 46.4 H (35.0-46.0) % MCV 89.5 (80.0-100.0) fL MCH 29.6 (27.0-34.0) pg MCHC 33.1 (32.0-36.0) % RDW 16.5 (11.6-17.2) % Plt Count 136 L D (150-450) th/mm3 MPV 10.1 (7.0-11.0) fL Prelim Diff (Auto) Neut % (Auto) (16.0-70.0) % Lymph % (Auto) (9.0-44.0) % [place] % (Auto) (0.0-8.0) % Eos % (Auto) (0.0-4.0) % Baso % (Auto) (0.0-2.0) % Neut # (Auto) (1.8-7.7) th/mm3 Lymph # (Auto) (1.0-4.8) th/mm3 [place] # (Auto) (0.0-0.9) th/mm3 Eos # (Auto) (0.0-0.4) th/mm3 Baso # (Auto) (0.0-0.2) th/mm3 WBC Differential Seg Neuts % (Manual) (16-70) % Band Neuts % (Manual) (0-6) % Lymphocytes % (Manual) (9-44) % Monocytes % (Manual) (0-8) % Abs Neuts (Manual) (1.8-7.7) th/mm3 Differential Comment Platelet Estimate (Normal) Platelet Morphology (Normal) PT (9.8-11.6) sec INR Ratio APTT (24.3-30.1) sec Puncture Site Patient Temperature O2 Saturation (90-100) % ABG pH (7.380-7.420) ABG pCO2 (38-42) mmHg ABG pO2 (61-120) mmHG ABG HCO3 (22-26) mmol/L ABG O2 Content (12.0-20.0) Vol % ABG Base Excess (-2-2) mmol/L ABG Methemoglobin (0-2) % Jayden Test Hemoglobin (12.0-16.0) G/DL Carboxyhemoglobin (0-4) % O2 Delivery Device Liter Flow L/M Critical Value Sodium 144 (136-145) meq/L Potassium 3.2 L (3.5-5.1) meq/L Chloride 109 H (98-107) meq/L Carbon Dioxide 25.2 (21.0-32.0) meq/L Anion Gap 10 (5-15) meq/L BUN 15 (7-18) mg/dL Creatinine 0.87 (0.50-1.00) mg/dL Estimated GFR 67 L (>89) mL/min POC Glucose (68-110) mg/dl Random Glucose 94 (74-106) mg/dL Calcium 8.3 L (8.5-10.1) mg/dL Phosphorus 3.0 (2.5-4.9) mg/dL Magnesium 1.8 (1.5-2.5) mg/dL Total Bilirubin 1.2 H (0.2-1.0) mg/dL Direct Bilirubin (0.0-0.2) mg/dL GGT 97 H (5-55) U/L AST 46 H (15-37) U/L ALT 125 H (10-53) U/L Alkaline Phosphatase 93 (45-117) U/L Lactate Dehydrogenase (84-246) U/L Total Creatine Kinase (26-192) U/L Troponin I (0.02-0.05) ng/mL Total Protein 6.4 D (6.4-8.2) g/dL Albumin 2.6 L D (3.4-5.0) g/dL Triglycerides (42-150) mg/dL Cholesterol (120-200) mg/dL LDL Cholesterol, Calc (0-99) mg/dL HDL Cholesterol (40.0-60.0) mg/dL Cholesterol/HDL Ratio Ratio Lipase 2540 H (73-393) U/L Serum Alcohol (0-5) mg/dL IgG Total (694-1618) mg/dL IgG1 (382-929) mg/dL IgG2 (241-700) mg/dL IgG3 (22-178) mg/dL IgG4 (4-86) mg/dL RYLAN Screen (Neg) Hepatitis A IgM Ab (Nonreactive) Hep Bs Antigen (Nonreactive) Hep B Core IgM Ab (Nonreactive) Hep C IgG Ab (Nonreactive) 12/18/17 12/18/17 12/18/17 Range/Units 07:20 07:20 13:17 WBC 10.6 (4.0-11.0) th/mm3 RBC 4.30 (4.00-5.30) mil/mm3 Hgb 12.7 D (11.6-15.3) gm/dL Hct 38.5 (35.0-46.0) % MCV 89.6 (80.0-100.0) fL MCH 29.5 (27.0-34.0) pg MCHC 32.9 (32.0-36.0) % RDW 16.6 (11.6-17.2) % Plt Count 108 L (150-450) th/mm3 MPV 9.4 (7.0-11.0) fL Prelim Diff (Auto) Neut % (Auto) (16.0-70.0) % Lymph % (Auto) (9.0-44.0) % [place] % (Auto) (0.0-8.0) % Eos % (Auto) (0.0-4.0) % Baso % (Auto) (0.0-2.0) % Neut # (Auto) (1.8-7.7) th/mm3 Lymph # (Auto) (1.0-4.8) th/mm3 [place] # (Auto) (0.0-0.9) th/mm3 Eos # (Auto) (0.0-0.4) th/mm3 Baso # (Auto) (0.0-0.2) th/mm3 WBC Differential Seg Neuts % (Manual) (16-70) % Band Neuts % (Manual) (0-6) % Lymphocytes % (Manual) (9-44) % Monocytes % (Manual) (0-8) % Abs Neuts (Manual) (1.8-7.7) th/mm3 Differential Comment Platelet Estimate (Normal) Platelet Morphology (Normal) PT (9.8-11.6) sec INR Ratio APTT (24.3-30.1) sec Puncture Site Patient Temperature O2 Saturation (90-100) % ABG pH (7.380-7.420) ABG pCO2 (38-42) mmHg ABG pO2 (61-120) mmHG ABG HCO3 (22-26) mmol/L ABG O2 Content (12.0-20.0) Vol % ABG Base Excess (-2-2) mmol/L ABG Methemoglobin (0-2) % Jayden Test Hemoglobin (12.0-16.0) G/DL Carboxyhemoglobin (0-4) % O2 Delivery Device Liter Flow L/M Critical Value Sodium 141 (136-145) meq/L Potassium 3.7 (3.5-5.1) meq/L Chloride 109 H (98-107) meq/L Carbon Dioxide 22.2 (21.0-32.0) meq/L Anion Gap 10 (5-15) meq/L BUN 9 (7-18) mg/dL Creatinine 0.67 (0.50-1.00) mg/dL Estimated GFR Greater than 89 (>89) mL/min POC Glucose 83 (68-110) mg/dl Random Glucose 81 (74-106) mg/dL Calcium 8.5 (8.5-10.1) mg/dL Phosphorus 1.6 L D (2.5-4.9) mg/dL Magnesium 2.0 (1.5-2.5) mg/dL Total Bilirubin 0.9 (0.2-1.0) mg/dL Direct Bilirubin (0.0-0.2) mg/dL GGT (5-55) U/L AST 20 (15-37) U/L ALT 70 H (10-53) U/L Alkaline Phosphatase 84 (45-117) U/L Lactate Dehydrogenase (84-246) U/L Total Creatine Kinase (26-192) U/L Troponin I (0.02-0.05) ng/mL Total Protein 6.0 L (6.4-8.2) g/dL Albumin 2.1 L (3.4-5.0) g/dL Triglycerides (42-150) mg/dL Cholesterol (120-200) mg/dL LDL Cholesterol, Calc (0-99) mg/dL HDL Cholesterol (40.0-60.0) mg/dL Cholesterol/HDL Ratio Ratio Lipase 534 H (73-393) U/L Serum Alcohol (0-5) mg/dL IgG Total (694-1618) mg/dL IgG1 (382-929) mg/dL IgG2 (241-700) mg/dL IgG3 (22-178) mg/dL IgG4 (4-86) mg/dL RYLAN Screen (Neg) Hepatitis A IgM Ab (Nonreactive) Hep Bs Antigen (Nonreactive) Hep B Core IgM Ab (Nonreactive) Hep C IgG Ab (Nonreactive) 12/18/17 12/19/17 12/19/17 Range/Units Unknown 06:52 06:52 WBC 10.5 (4.0-11.0) th/mm3 RBC 4.12 (4.00-5.30) mil/mm3 Hgb 12.3 (11.6-15.3) gm/dL Hct 36.7 (35.0-46.0) % MCV 89.2 (80.0-100.0) fL MCH 29.7 (27.0-34.0) pg MCHC 33.4 (32.0-36.0) % RDW 15.9 (11.6-17.2) % Plt Count 99 L (150-450) th/mm3 MPV 10.0 (7.0-11.0) fL Prelim Diff (Auto) Slide review pending Neut % (Auto) 89.3 H (16.0-70.0) % Lymph % (Auto) 4.9 L (9.0-44.0) % [place] % (Auto) 5.0 (0.0-8.0) % Eos % (Auto) 0.5 (0.0-4.0) % Baso % (Auto) 0.3 (0.0-2.0) % Neut # (Auto) 9.4 H (1.8-7.7) th/mm3 Lymph # (Auto) 0.5 L (1.0-4.8) th/mm3 [place] # (Auto) 0.5 (0.0-0.9) th/mm3 Eos # (Auto) 0.1 (0.0-0.4) th/mm3 Baso # (Auto) 0.0 (0.0-0.2) th/mm3 WBC Differential Manual diff final Seg Neuts % (Manual) 84 H (16-70) % Band Neuts % (Manual) 7 H (0-6) % Lymphocytes % (Manual) 6 L (9-44) % Monocytes % (Manual) 3 (0-8) % Abs Neuts (Manual) 9.6 H (1.8-7.7) th/mm3 Differential Comment . Platelet Estimate Low L (Normal) Platelet Morphology Normal (Normal) PT (9.8-11.6) sec INR Ratio APTT (24.3-30.1) sec Puncture Site Left radial Patient Temperature 98.6 O2 Saturation 88 L* (90-100) % ABG pH 7.41 (7.380-7.420) ABG pCO2 35 L (38-42) mmHg ABG pO2 60 L (61-120) mmHG ABG HCO3 22 (22-26) mmol/L ABG O2 Content 15.9 (12.0-20.0) Vol % ABG Base Excess -2.2 L (-2-2) mmol/L ABG Methemoglobin 1.6 (0-2) % Jayden Test + Hemoglobin 12.8 (12.0-16.0) G/DL Carboxyhemoglobin 1.2 (0-4) % O2 Delivery Device Nasal cannula Liter Flow 4.00 L/M Critical Value Yes Sodium 138 (136-145) meq/L Potassium 4.4 (3.5-5.1) meq/L Chloride 106 (98-107) meq/L Carbon Dioxide 21.5 (21.0-32.0) meq/L Anion Gap 11 (5-15) meq/L BUN 6 L (7-18) mg/dL Creatinine 0.57 (0.50-1.00) mg/dL Estimated GFR Greater than 89 (>89) mL/min POC Glucose (68-110) mg/dl Random Glucose 61 L (74-106) mg/dL Calcium 8.5 (8.5-10.1) mg/dL Phosphorus 2.3 L (2.5-4.9) mg/dL Magnesium 2.0 (1.5-2.5) mg/dL Total Bilirubin 1.0 (0.2-1.0) mg/dL Direct Bilirubin 0.1 (0.0-0.2) mg/dL GGT (5-55) U/L AST 26 (15-37) U/L ALT 50 (10-53) U/L Alkaline Phosphatase 92 (45-117) U/L Lactate Dehydrogenase (84-246) U/L Total Creatine Kinase (26-192) U/L Troponin I (0.02-0.05) ng/mL Total Protein 6.3 L (6.4-8.2) g/dL Albumin 1.9 L (3.4-5.0) g/dL Triglycerides (42-150) mg/dL Cholesterol (120-200) mg/dL LDL Cholesterol, Calc (0-99) mg/dL HDL Cholesterol (40.0-60.0) mg/dL Cholesterol/HDL Ratio Ratio Lipase 245 (73-393) U/L Serum Alcohol (0-5) mg/dL IgG Total (694-1618) mg/dL IgG1 (382-929) mg/dL IgG2 (241-700) mg/dL IgG3 (22-178) mg/dL IgG4 (4-86) mg/dL RYLAN Screen (Neg) Hepatitis A IgM Ab (Nonreactive) Hep Bs Antigen (Nonreactive) Hep B Core IgM Ab (Nonreactive) Hep C IgG Ab (Nonreactive) 12/20/17 12/20/17 12/20/17 Range/Units 06:22 06:22 16:42 WBC 11.5 H (4.0-11.0) th/mm3 RBC 4.22 (4.00-5.30) mil/mm3 Hgb 12.4 (11.6-15.3) gm/dL Hct 37.1 (35.0-46.0) % MCV 87.9 (80.0-100.0) fL MCH 29.3 (27.0-34.0) pg MCHC 33.4 (32.0-36.0) % RDW 15.5 (11.6-17.2) % Plt Count 130 L D (150-450) th/mm3 MPV 10.0 (7.0-11.0) fL Prelim Diff (Auto) Neut % (Auto) 86.1 H (16.0-70.0) % Lymph % (Auto) 5.6 L (9.0-44.0) % [place] % (Auto) 7.6 (0.0-8.0) % Eos % (Auto) 0.4 (0.0-4.0) % Baso % (Auto) 0.3 (0.0-2.0) % Neut # (Auto) 9.9 H (1.8-7.7) th/mm3 Lymph # (Auto) 0.6 L (1.0-4.8) th/mm3 [place] # (Auto) 0.9 (0.0-0.9) th/mm3 Eos # (Auto) 0.0 (0.0-0.4) th/mm3 Baso # (Auto) 0.0 (0.0-0.2) th/mm3 WBC Differential . Seg Neuts % (Manual) (16-70) % Band Neuts % (Manual) (0-6) % Lymphocytes % (Manual) (9-44) % Monocytes % (Manual) (0-8) % Abs Neuts (Manual) (1.8-7.7) th/mm3 Differential Comment Auto diff final Platelet Estimate (Normal) Platelet Morphology (Normal) PT (9.8-11.6) sec INR Ratio APTT (24.3-30.1) sec Puncture Site Patient Temperature O2 Saturation (90-100) % ABG pH (7.380-7.420) ABG pCO2 (38-42) mmHg ABG pO2 (61-120) mmHG ABG HCO3 (22-26) mmol/L ABG O2 Content (12.0-20.0) Vol % ABG Base Excess (-2-2) mmol/L ABG Methemoglobin (0-2) % Jayden Test Hemoglobin (12.0-16.0) G/DL Carboxyhemoglobin (0-4) % O2 Delivery Device Liter Flow L/M Critical Value Sodium 141 (136-145) meq/L Potassium 3.1 L D (3.5-5.1) meq/L Chloride 105 (98-107) meq/L Carbon Dioxide 25.5 (21.0-32.0) meq/L Anion Gap 11 (5-15) meq/L BUN 6 L (7-18) mg/dL Creatinine 0.63 (0.50-1.00) mg/dL Estimated GFR Greater than 89 (>89) mL/min POC Glucose (68-110) mg/dl Random Glucose 107 H (74-106) mg/dL Calcium 8.4 L (8.5-10.1) mg/dL Phosphorus 3.5 D (2.5-4.9) mg/dL Magnesium 2.1 (1.5-2.5) mg/dL Total Bilirubin 0.6 (0.2-1.0) mg/dL Direct Bilirubin (0.0-0.2) mg/dL GGT (5-55) U/L AST 16 (15-37) U/L ALT 42 (10-53) U/L Alkaline Phosphatase 154 H (45-117) U/L Lactate Dehydrogenase (84-246) U/L Total Creatine Kinase 78 (26-192) U/L Troponin I Less than 0.02 L (0.02-0.05) ng/mL Total Protein 6.5 (6.4-8.2) g/dL Albumin 2.0 L (3.4-5.0) g/dL Triglycerides (42-150) mg/dL Cholesterol (120-200) mg/dL LDL Cholesterol, Calc (0-99) mg/dL HDL Cholesterol (40.0-60.0) mg/dL Cholesterol/HDL Ratio Ratio Lipase 116 (73-393) U/L Serum Alcohol (0-5) mg/dL IgG Total (694-1618) mg/dL IgG1 (382-929) mg/dL IgG2 (241-700) mg/dL IgG3 (22-178) mg/dL IgG4 (4-86) mg/dL RYLAN Screen (Neg) Hepatitis A IgM Ab (Nonreactive) Hep Bs Antigen (Nonreactive) Hep B Core IgM Ab (Nonreactive) Hep C IgG Ab (Nonreactive) Imaging Data Radiologist's impression: Cholangiopancreatography MRI 12/16/17 00:00 CONCLUSION: 1. The head of the pancreas is enlarged with diffuse inflammatory change consistent with the history of pancreatitis. 2. Small apparent gallbladder wall polyp again noted with no definite evidence of cholelithiasis. No filling defect in common bile duct which is at the upper limits of normal in size. Abdomen/Pelvis CT 12/16/17 05:17 CONCLUSION: 1. CT findings characteristic of an acute pancreatitis with peripancreatic inflammatory changes. 2. Patchy airspace disease posterior laterally in the right base. Diagnostic considerations include atelectasis or early infiltrate Gallbladder Ultrasound 12/16/17 08:46 CONCLUSION: 1. No evidence of cholelithiasis. There is a small nonmobile echogenic structure along the gallbladder wall which could represent a small polyp. There is no gallbladder wall thickening or biliary obstruction. 2. Limited visualization of pancreas. The head appeared grossly unremarkable. Chest X-Ray 12/18/17 06:00 CONCLUSION: Right lung base opacity is present may be due to a combination of consolidation and or pleural effusion and left lung base consolidation not present previously. Chest CTA 12/19/17 00:00 CONCLUSION: Venous Doppler Study 12/19/17 00:00 CONCLUSION: 1. No evidence of deep venous thrombosis. 2. Small Beth's cyst in the right popliteal fossa. Discharge Plan Discharge Disposition Patient Disposition: 30 Still Patient Discharge Details Diagnosis: Pancreatitis Physicians Team ED Provider: Blake Castillo Primary Care Provider: Primary Care Dick,Alannah Attending Provider: Phil Saldivar Other Providers: Mile Gomez ; [facility],Insurance ; Shireen Campbell Status ED Status: Left Department Discharge Information Discharge Date/Time: 12/17/17 11:16
[2017-12-16] MEDS ORDERED: Diatrizoate Meglum/Diatrizoate Sod Liq 9 ML UDC PO SCH (04:10)
[2017-12-16 04:14] LABS: Alanine Aminotransferase 272 U/L (10-53); Alkaline Phosphatase 141 U/L (45-117); Lipase 15857 U/L (73-393); Total Protein 7.7 g/dL (6.4-8.2)
[2017-12-16 04:17] LABS: Albumin 3.7 g/dL (3.4-5.0); Anion Gap 5 meq/L (5-15); Aspartate Aminotransferase 341 U/L (15-37); Blood Urea Nitrogen 19 mg/dL (7-18); Calcium 9.1 mg/dL (8.5-10.1); Carbon Dioxide 28.2 meq/L (21.0-32.0); Chloride 111 meq/L (98-107); Glomerular Filtration Rate 54 mL/min (>89); Glucose,Random 152 mg/dL (74-106); Sodium 144 meq/L (136-145)
[2017-12-16] MEDS ORDERED: Diatrizoate Meglum/Diatrizoate Sod Liq 9 ML UDC ONE (04:37)
--- NOTE | 2017-12-16 06:09 | CT ---
EXAM DATE: 12/16/2017 5:56 AM EDT AGE/SEX: 57 years / Female INDICATIONS: Upper abdomen pain. CLINICAL DATA: This is the patient's initial encounter. Patient reports that signs and symptoms have been present for 1 day and indicates a pain score of 10/10. MEDICAL/SURGICAL HISTORY: Emphysema. Fusion, lumbar. ORAL CONTRAST: Partial prescribed oral contrast ingested. RADIATION DOSE: 27.64 CTDI (mGy) COMPARISON: [facility] [place], CT ABDOMEN & PELVIS W/O CONTRAST, 10/11/2017. . TECHNIQUE: Multiple contiguous axial images were obtained through the abdomen and pelvis following b olus infusion of 90 ml Omnipaque 350 (iohexol) nonionic water-soluble contrast as a single exam dos e. Partial prescribed oral contrast ingested. Using automated exposure control and adjustment of the mA and/or kV according to patient size, radiation dose was kept as low as reasonably achievable to o btain optimal diagnostic quality images. DICOM format image data is available electronically for rev iew and comparison. FINDINGS: Lower Lungs: Some patchy airspace disease in the right base laterally may represent atelectasis or ea rly infiltrate. Liver: The liver has a homogeneous density without space-occupying lesion. There is no dilation of th e biliary tree. Spleen: Punctate granulomatous type calcification. Otherwise radiographically normal. Pancreas: Peripancreatic Inflammatory changes characteristic of an acute pancreatitis Kidneys: Normal in size and shape. No evidence of mass or hydronephrosis. Adrenal Glands: Unremarkable. Aorta: The aorta and proximal iliac vessels are grossly unremarkable without aneurysmal dilation. Bowel/Mesentery: The bowel loops are grossly unremarkable. The cecum and sigmoid colon have a normal configuration. Abdominal Wall: Intact. Retroperitoneum: No evidence of adenopathy in the retrocrural, para-aortic, or deep pelvic regions. Bladder: Contours are smooth. Reproductive Organs: No abnormal masses or calcifications seen. Inguinal: The inguinal region is unremarkable without evidence of adenopathy. Bony Structures: Unremarkable. Post Contrast: No abnormal areas of enhancement seen. CONCLUSION: 1. CT findings characteristic of an acute pancreatitis with peripancreatic inflammatory changes. 2. Patchy airspace disease posterior laterally in the right base. Diagnostic considerations include atelectasis or early infiltrate Electronically signed by: Abhijeet Moran MD 12/16/2017 6:07 AM EDT
[2017-12-16] MEDS ORDERED: Sod Chloride 0.9% Inj 2,000 ML IV.SIG ONE (06:40)
[2017-12-16] MEDS ORDERED: Piperacil/Tazo 3.375 GM Premix 50 ML IV.SIG ONE (06:42)
[2017-12-16] MEDS ORDERED: Sodium Phosphate Inj 30 MMOL in Sodium Chlor 0.9% Inj 250 ML IV.SIG PRN (06:55)
[2017-12-16] MEDS ORDERED: Magnesium Sulfate Inj 4 GM in Sodium Chlor 0.9% Inj 92 ML IV.SIG PRN (06:55)
[2017-12-16] MEDS ORDERED: Potassium Chlor 20 mEq Premix 20 MEQ/100 ML PIGGYBACK IV.SIG PRN ×2 (06:55)
[2017-12-16] MEDS ORDERED: Potassium Phosphate 500 MG Soluble Tablet PO PRN ×2 (06:55)
[2017-12-16] MEDS ORDERED: Potassium Chlor 40 mEq Premix 40 MEQ/100 ML PIGGYBACK IV.SIG PRN ×2 (06:55)
[2017-12-16] MEDS ORDERED: Magnesium Sulfate Inj 2 GM in Sodium Chlor 0.9% Inj 96 ML IV.SIG PRN (06:55)
[2017-12-16] MEDS ORDERED: Magnesium Oxide 400 MG Tablet PO PRN (06:55)
[2017-12-16] MEDS ORDERED: Potassium Chloride 25 MEQ Effervescent Tablet PO PRN (06:55)
[2017-12-16] MEDS ORDERED: Potassium Phosphate Inj 30 MMOL in Sodium Chlor 0.9% Inj 250 ML IV.SIG PRN (06:55)
[2017-12-16] MEDS ORDERED: Haloperidol Inj 5 MG/ML Ampul IV.PUSH PRN (07:01)
[2017-12-16 07:16] LABS: Lactate Dehydrogenase 633 U/L (84-246); Magnesium 1.9 mg/dL (1.5-2.5); Phosphorus 2.7 mg/dL (2.5-4.9)
[2017-12-16 07:16] LABS: Prothrombin Time 10.3 sec (9.8-11.6)
[2017-12-16] MEDS ORDERED: Folic Acid 1 MG Tablet PO SCH (09:00)
[2017-12-16] MEDS ORDERED: Multivitamin/Minerals Therapeutic Tablet PO SCH (09:00)
--- NOTE | 2017-12-16 09:51 | P.CONGI ---
History of Present Illness Consult date: 12/16/17 Consult reason: acute pancreatitis Chief complaint: Acute pancreatitis History of Present Illness: This is a 57 yo F who presented to the ER early this morning with complaints of abdominal pain that started last night. Pt reports symptoms began after she took a puff of Atrovent, she started having chest pains which then progressed to epigastric abdominal pain. States pain is constant and described as a burning sensation. Associated nausea and vomiting, denies hematemesis and coffee ground emesis. Pt has been found to have pancreatitis, she denies history of pancreatitis. Denies ETOH and illicit drugs. Only new medication is Atrovent, denies any other new OTC or prescription medications. Denies previous cholecystectomy. Pt denies personal or family history of liver issues. Denies having any tattoos, history of IV drug use, high risk sexual behaviors. Pt states her mother had significant GI history and only has 1/3 of her stomach but she is unsure of exact details. Pt has never had EGD or colonoscopy. <Chary Jarquin - Last Filed: 12/16/17 09:34> Review of Systems Gastrointestinal: Reports abdominal pain, Reports heartburn, Reports nausea, Reports vomiting, Denies change in bowel habits, Denies vomiting blood <Chary Jarquin - Last Filed: 12/16/17 09:34> PMFSH - History History Provided By: Patient - Medical History Medical History: Medical History (Last Updated 12/16/17 @ 02:52 by Antonio Mahoney) Emphysema lung Post surgical complication - Tobacco History Tobacco Use In Past 30 Days: Yes Smoking Status: Heavy tobacco smoker Tobacco Type: Cigarettes - Alcohol History How Often Do You Have a Drink Containing Alcohol: Monthly or less - Substance Use History Substance History: No History of Abuse - Travel History Recent Travel in the [place] Within the Last 8 Weeks: No Recent Travel Out of the Country Within the Last 8 Weeks: No - Immunization History Tetanus Immunization: >5 Years Hx Influenza Vaccine This Season: No <Chary Jarquin - Last Filed: 12/16/17 09:34> - Medical History Medical History: Medical History (Last Updated 12/16/17 @ 02:52 by Antonio Mahoney) Emphysema lung Post surgical complication <Mile Gomez - Last Filed: 12/16/17 17:13> Medications and Allergies Active Medications: Active Medications Albuterol (Duoneb Neb (Prn)) 1 ampul NEB Q2HR NEB PRN PRN Reason: WHEEZING Chlorhexidine Gluconate (Chlorhexidine 2% Cloth) 3 pack TOPICAL DAILY@0400 CAROL ANN Stop: 12/22/17 03:59 Chlorhexidine Gluconate (Chlorhexidine 2% Cloth) 3 pack TOPICAL DAILY@0400 PRN PRN Reason: Extra cloth needed Stop: 12/22/17 03:59 Famotidine (Pepcid Pf Inj) 20 mg IV.PUSH Q12HR CAROL ANN Flumazenil (Romazecon Inj) 0.2 mg IV.PUSH Q1M PRN PRN Reason: OVERSEDATION Folic Acid (Folic Acid) 1 mg PO DAILY [facility] Stop: 12/25/17 09:01 Haloperidol Lactate (Haldol Inj) 5 mg IV.PUSH Q15M PRN PRN Reason: for severe agitation Heparin Sodium (Porcine) (Heparin Inj) 5,000 units SQ Q8H CAROL ANN Hydromorphone HCl (Dilaudid Pf Inj) 0.5 mg IV.PUSH Q1H PRN PRN Reason: PAIN 8-10 OR NOT TAKING PO Lactated Ringer's (Lr 1000 Ml Inj) 1,000 mls @ 125 mls/hr IV.CONT .Q8H CAROL ANN Magnesium Sulfate Inj 4 gm/ (Sodium Chloride) 100 mls @ 50 mls/hr IV.SIG UNSCH PRN PRN Reason: For Magnesium 0.9 - 1.1 mg/dL Potassium Chloride (Kcl 40 Meq Premix Inj) 40 meq in 100 mls @ 25 mls/hr IV.SIG Q2H PRN PRN Reason: For Potassium 2.8 - 3.2 mEq/L Potassium Chloride (Kcl 20 Meq Premix Inj) 20 meq in 100 mls @ 50 mls/hr IV.SIG Q2H PRN PRN Reason: For Potassium 3.3 - 3.5 mEq/L Potassium Chloride (Kcl 40 Meq Premix Inj) 40 meq in 100 mls @ 25 mls/hr IV.SIG UNSCH PRN PRN Reason: For Potassium 3.3 - 3.5 mEq/L Potassium Chloride (Kcl 20 Meq Premix Inj) 20 meq in 100 mls @ 50 mls/hr IV.SIG Q2H PRN PRN Reason: For Potassium 2.8 - 3.2 mEq/L Potassium Phosphate 30 mmol/ (Sodium Chloride) 260 mls @ 42 mls/hr IV.SIG UNSCH PRN PRN Reason: SEE LABEL COMMENTS Sodium Phosphate 30 mmol/ (Sodium Chloride) 260 mls @ 42 mls/hr IV.SIG UNSCH PRN PRN Reason: For Phosphorus < 2.5 mg/dL Piperacillin/Tazobactam/Dextrose (Zosyn 3.375 Gm Premix) 50 mls @ 100 mls/hr IV.SIG Q8H CAROL ANN Magnesium Sulfate Inj 2 gm/ (Sodium Chloride) 100 mls @ 50 mls/hr IV.SIG UNSCH PRN PRN Reason: For Magnesium 1.2 - 1.6 mg/dL Thiamine HCl 500 mg/ Sodium (Chloride) 255 mls @ 62.5 mls/hr IV.SIG Q8H CAROL ANN Stop: 12/18/17 09:59 Thiamine HCl 500 mg/ Sodium (Chloride) 505 mls @ 21 mls/hr IV.SIG Q24H CAROL ANN Stop: 12/23/17 09:01 Multivitamins 10 ml/ Folic (Acid 1 mg/ Sodium Chloride) 510.2 mls @ 125 mls/hr IV.SIG DAILY CAROL ANN Stop: 12/21/17 08:59 Lorazepam (Ativan) 1 mg PO Q4H PRN PRN Reason: for CIWA 8-10 Lorazepam (Ativan Inj) 2 mg IV.PUSH Q2H PRN PRN Reason: for CIWA 11-14 Lorazepam (Ativan Inj) 2 mg IV.PUSH Q1H PRN PRN Reason: for CIWA 15-20 Lorazepam (Ativan Inj) 2 mg IV.PUSH Q15M PRN PRN Reason: for CIWA > 20 Lorazepam (Ativan Inj) 1 mg IV.PUSH Q4H PRN PRN Reason: for CIWA 8-10 Lorazepam (Ativan) 2 mg PO Q2H PRN PRN Reason: for CIWA 11-14 Magnesium Oxide (Mag-Ox) 800 mg PO UNSCH PRN PRN Reason: For Magnesium 1.2 - 1.6 mg/dL Multivitamins/Minerals (Theragran-M) 1 tab PO DAILY CAROL ANN Stop: 12/25/17 08:59 Ondansetron HCl (Zofran Odt) 4 mg PO Q6H PRN PRN Reason: NAUSEA OR VOMITING Potassium Bicarb/Potassium Chloride (K-Lyte Cl Eff) 50 meq PO UNSCH PRN PRN Reason: For Potassium 3.3 - 3.5 mEq/L Potassium Phosphate (K-Phos Original) 2,000 mg PO Q4H PRN PRN Reason: Phosphorus Less Than 2.5 mg/dL Potassium Phosphate (K-Phos Original) 2,000 mg PO UNSCH PRN PRN Reason: SEE LABEL COMMENTS Sodium Chloride (Ns Flush) 2 ml IV.FLUSH BID [facility] Sodium Chloride (Ns Flush) 2 ml IV.FLUSH UNSCH PRN PRN Reason: FLUSH AFTER USING IV ACCESS Thiamine HCl (Vitamin B1) 100 mg PO DAILY [facility] <Chary Jarquin - Last Filed: 12/16/17 09:34> Active Medications: Active Medications Albuterol (Duoneb Neb (Prn)) 1 ampul NEB Q2HR NEB PRN PRN Reason: WHEEZING Chlorhexidine Gluconate (Chlorhexidine 2% Cloth) 3 pack TOPICAL DAILY@0400 [facility] Stop: 12/22/17 03:59 Chlorhexidine Gluconate (Chlorhexidine 2% Cloth) 3 pack TOPICAL DAILY@0400 PRN PRN Reason: Extra cloth needed Stop: 12/22/17 03:59 Famotidine (Pepcid Pf Inj) 20 mg IV.PUSH Q12HR [facility] Last Admin: 12/16/17 09:56 Dose: 20 mg Flumazenil (Romazecon Inj) 0.2 mg IV.PUSH Q1M PRN PRN Reason: OVERSEDATION Folic Acid (Folic Acid) 1 mg PO DAILY [facility] Stop: 12/25/17 09:01 Haloperidol Lactate (Haldol Inj) 5 mg IV.PUSH Q15M PRN PRN Reason: for severe agitation Heparin Sodium (Porcine) (Heparin Inj) 5,000 units SQ Q8H [facility] Last Admin: 12/16/17 09:55 Dose: 5,000 units Hydromorphone HCl (Dilaudid Pf Inj) 0.5 mg IV.PUSH Q1H PRN PRN Reason: PAIN 8-10 OR NOT TAKING PO Last Admin: 12/16/17 15:39 Dose: 0.5 mg Lactated Ringer's (Lr 1000 Ml Inj) 1,000 mls @ 125 mls/hr IV.CONT .Q8H [facility] Last Admin: 12/16/17 11:49 Dose: 125 mls/hr Magnesium Sulfate Inj 4 gm/ (Sodium Chloride) 100 mls @ 50 mls/hr IV.SIG UNSCH PRN PRN Reason: For Magnesium 0.9 - 1.1 mg/dL Potassium Chloride (Kcl 40 Meq Premix Inj) 40 meq in 100 mls @ 25 mls/hr IV.SIG Q2H PRN PRN Reason: For Potassium 2.8 - 3.2 mEq/L Potassium Chloride (Kcl 20 Meq Premix Inj) 20 meq in 100 mls @ 50 mls/hr IV.SIG Q2H PRN PRN Reason: For Potassium 3.3 - 3.5 mEq/L Potassium Chloride (Kcl 40 Meq Premix Inj) 40 meq in 100 mls @ 25 mls/hr IV.SIG UNSCH PRN PRN Reason: For Potassium 3.3 - 3.5 mEq/L Potassium Chloride (Kcl 20 Meq Premix Inj) 20 meq in 100 mls @ 50 mls/hr IV.SIG Q2H PRN PRN Reason: For Potassium 2.8 - 3.2 mEq/L Potassium Phosphate 30 mmol/ (Sodium Chloride) 260 mls @ 42 mls/hr IV.SIG UNSCH PRN PRN Reason: SEE LABEL COMMENTS Sodium Phosphate 30 mmol/ (Sodium Chloride) 260 mls @ 42 mls/hr IV.SIG UNSCH PRN PRN Reason: For Phosphorus < 2.5 mg/dL Piperacillin/Tazobactam/Dextrose (Zosyn 3.375 Gm Premix) 50 mls @ 100 mls/hr IV.SIG Q8H CAROL ANN Last Admin: 12/16/17 16:55 Dose: 100 mls/hr Magnesium Sulfate Inj 2 gm/ (Sodium Chloride) 100 mls @ 50 mls/hr IV.SIG UNSCH PRN PRN Reason: For Magnesium 1.2 - 1.6 mg/dL Thiamine HCl 500 mg/ Sodium (Chloride) 255 mls @ 62.5 mls/hr IV.SIG Q8H CAROL ANN Stop: 12/18/17 09:59 Last Admin: 12/16/17 11:49 Dose: 62.5 mls/hr Thiamine HCl 500 mg/ Sodium (Chloride) 505 mls @ 21 mls/hr IV.SIG Q24H CAROL ANN Stop: 12/23/17 09:01 Multivitamins 10 ml/ Folic (Acid 1 mg/ Sodium Chloride) 510.2 mls @ 125 mls/hr IV.SIG DAILY CAROL ANN Stop: 12/21/17 08:59 Last Admin: 12/16/17 09:56 Dose: 125 mls/hr Lorazepam (Ativan) 1 mg PO Q4H PRN PRN Reason: for CIWA 8-10 Lorazepam (Ativan Inj) 2 mg IV.PUSH Q2H PRN PRN Reason: for CIWA 11-14 Lorazepam (Ativan Inj) 2 mg IV.PUSH Q1H PRN PRN Reason: for CIWA 15-20 Lorazepam (Ativan Inj) 2 mg IV.PUSH Q15M PRN PRN Reason: for CIWA > 20 Lorazepam (Ativan Inj) 1 mg IV.PUSH Q4H PRN PRN Reason: for CIWA 8-10 Lorazepam (Ativan) 2 mg PO Q2H PRN PRN Reason: for CIWA 11-14 Magnesium Oxide (Mag-Ox) 800 mg PO UNSCH PRN PRN Reason: For Magnesium 1.2 - 1.6 mg/dL Multivitamins/Minerals (Theragran-M) 1 tab PO DAILY [facility] Stop: 12/25/17 08:59 Ondansetron HCl (Zofran Odt) 4 mg PO Q6H PRN PRN Reason: NAUSEA OR VOMITING Potassium Bicarb/Potassium Chloride (K-Lyte Cl Eff) 50 meq PO UNSCH PRN PRN Reason: For Potassium 3.3 - 3.5 mEq/L Potassium Phosphate (K-Phos Original) 2,000 mg PO Q4H PRN PRN Reason: Phosphorus Less Than 2.5 mg/dL Potassium Phosphate (K-Phos Original) 2,000 mg PO UNSCH PRN PRN Reason: SEE LABEL COMMENTS Sodium Chloride (Ns Flush) 2 ml IV.FLUSH BID CAROL ANN Sodium Chloride (Ns Flush) 2 ml IV.FLUSH UNSCH PRN PRN Reason: FLUSH AFTER USING IV ACCESS Thiamine HCl (Vitamin B1) 100 mg PO DAILY [facility] <Mile Gomez - Last Filed: 12/16/17 17:13> Allergies Allergy/AdvReac Type Severity Reaction Status Date / Time Sulfa (Sulfonamide Allergy Severe HIVES Verified 10/11/17 12:43 Antibiotics) Home Medications Medication Instructions Recorded Confirmed Type duloxetine [Cymbalta] See Label Instructions .ROUTE 12/16/17 12/16/17 History .COMPLEX morphine 30 mg PO BID PRN MDD 60 12/16/17 12/16/17 History oxycodone-acetaminophen [Percocet] 1 tab PO BID PRN 12/16/17 12/16/17 History rivaroxaban [Xarelto] 20 mg PO DAILY 12/16/17 12/16/17 History Exam Vital signs: Vital Signs 12/16/17 02:47 12/16/17 02:50 12/16/17 06:05 Temperature 98.6 F Pulse Rate 66 78 Respiratory Rate 17 20 20 Blood Pressure 149/71 H 140/72 Pulse Oximetry 95 98 12/16/17 07:33 Temperature 98.9 F Pulse Rate 72 Respiratory Rate 18 Blood Pressure 155/86 H Pulse Oximetry 94 L Intake & Output 12/15/17 12/16/17 12/16/17 18:59 06:59 18:59 Weight 68.039 kg - Constitutional mild distress - Routine HEENT Exam Head: Present: normocephalic, atraumatic - Routine Respiratory Exam Absent: accessory muscle use - Routine Cardiovascular Exam Present: RRR - Routine Abdominal Exam Present: soft, normoactive bowel sounds, tenderness (epigastric and RUQ tenderness ). Absent: firm - Routine Skin Exam Present: dry, warm - Routine Neurological Exam Present: alert, oriented X3 <Chary Jarquin - Last Filed: 12/16/17 09:34> Vital signs: Vital Signs 12/16/17 02:47 12/16/17 02:50 12/16/17 06:05 Temperature 98.6 F Pulse Rate 66 78 Respiratory Rate 17 20 20 Blood Pressure 149/71 H 140/72 Pulse Oximetry 95 98 12/16/17 07:33 12/16/17 08:00 12/16/17 10:00 Temperature 98.9 F Pulse Rate 72 76 78 Respiratory Rate 18 18 18 Blood Pressure 155/86 H 161/80 H 160/79 H Pulse Oximetry 94 L 93 L 91 L 12/16/17 11:30 Temperature Pulse Rate 90 Respiratory Rate 18 Blood Pressure 154/84 H Pulse Oximetry Intake & Output 12/15/17 12/16/17 12/16/17 18:59 06:59 18:59 Weight 68.039 kg <Mile Gomez - Last Filed: 12/16/17 17:13> Results - Labs CBC & Chem 7: 12/16/17 03:05 12/16/17 03:46 Labs: Laboratory Results - last 24 hr 12/16/17 12/16/17 12/16/17 03:05 03:46 03:46 WBC 21.0 H RBC 5.58 H Hgb 16.7 H Hct 49.5 H MCV 88.6 MCH 30.0 MCHC 33.8 RDW 16.4 Plt Count 200 MPV 9.9 Neut % (Auto) 88.7 H Lymph % (Auto) 8.3 L Sutter % (Auto) 2.5 Eos % (Auto) 0.3 Baso % (Auto) 0.2 Neut # (Auto) 18.7 H Lymph # (Auto) 1.7 Sutter # (Auto) 0.5 Eos # (Auto) 0.1 Baso # (Auto) 0.0 WBC Differential . Differential Comment Auto diff final PT INR APTT Sodium 144 Potassium 4.0 Chloride 111 H Carbon Dioxide 28.2 Anion Gap 5 BUN 19 H Creatinine 1.05 H Estimated GFR 54 L Random Glucose 152 H Calcium 9.1 Phosphorus 2.7 Magnesium 1.9 Total Bilirubin 0.8 AST 341 H ALT 272 H Alkaline Phosphatase 141 H Lactate Dehydrogenase 633 H Total Protein 7.7 Albumin 3.7 Lipase 21969 H Serum Alcohol Less than 3 12/16/17 12/16/17 12/16/17 03:46 03:46 06:54 WBC RBC Hgb Hct MCV MCH MCHC RDW Plt Count MPV Neut % (Auto) Lymph % (Auto) Sutter % (Auto) Eos % (Auto) Baso % (Auto) Neut # (Auto) Lymph # (Auto) Sutter # (Auto) Eos # (Auto) Baso # (Auto) WBC Differential Differential Comment PT 10.3 INR 1.0 APTT 24.0 L Sodium Potassium Chloride Carbon Dioxide Anion Gap BUN Creatinine Estimated GFR Random Glucose Calcium Phosphorus Cancelled Magnesium Cancelled Total Bilirubin AST ALT Alkaline Phosphatase Lactate Dehydrogenase Cancelled Total Protein Albumin Lipase Serum Alcohol - Imaging Impressions Abdomen/Pelvis CT 12/16/17 05:17 CONCLUSION: 1. CT findings characteristic of an acute pancreatitis with peripancreatic inflammatory changes. 2. Patchy airspace disease posterior laterally in the right base. Diagnostic considerations include atelectasis or early infiltrate <Chary Jarquin - Last Filed: 12/16/17 09:34> - Labs CBC & Chem 7: 12/16/17 03:05 12/16/17 12:35 Labs: Laboratory Results - last 24 hr 12/16/17 12/16/17 12/16/17 03:05 03:46 03:46 WBC 21.0 H RBC 5.58 H Hgb 16.7 H Hct 49.5 H MCV 88.6 MCH 30.0 MCHC 33.8 RDW 16.4 Plt Count 200 MPV 9.9 Neut % (Auto) 88.7 H Lymph % (Auto) 8.3 L Sutter % (Auto) 2.5 Eos % (Auto) 0.3 Baso % (Auto) 0.2 Neut # (Auto) 18.7 H Lymph # (Auto) 1.7 Sutter # (Auto) 0.5 Eos # (Auto) 0.1 Baso # (Auto) 0.0 WBC Differential . Differential Comment Auto diff final PT INR APTT Sodium 144 Potassium 4.0 Chloride 111 H Carbon Dioxide 28.2 Anion Gap 5 BUN 19 H Creatinine 1.05 H Estimated GFR 54 L Random Glucose 152 H Calcium 9.1 Phosphorus 2.7 Magnesium 1.9 Total Bilirubin 0.8 AST 341 H ALT 272 H Alkaline Phosphatase 141 H Lactate Dehydrogenase 633 H Total Protein 7.7 Albumin 3.7 Lipase 70203 H Serum Alcohol Less than 3 Hepatitis A IgM Ab Hep Bs Antigen Hep B Core IgM Ab Hep C IgG Ab 12/16/17 12/16/17 12/16/17 03:46 03:46 06:54 WBC RBC Hgb Hct MCV MCH MCHC RDW Plt Count MPV Neut % (Auto) Lymph % (Auto) Sutter % (Auto) Eos % (Auto) Baso % (Auto) Neut # (Auto) Lymph # (Auto) Sutter # (Auto) Eos # (Auto) Baso # (Auto) WBC Differential Differential Comment PT 10.3 INR 1.0 APTT 24.0 L Sodium Potassium Chloride Carbon Dioxide Anion Gap BUN Creatinine Estimated GFR Random Glucose Calcium Phosphorus Cancelled Magnesium Cancelled Total Bilirubin AST ALT Alkaline Phosphatase Lactate Dehydrogenase Cancelled Total Protein Albumin Lipase Serum Alcohol Hepatitis A IgM Ab Hep Bs Antigen Hep B Core IgM Ab Hep C IgG Ab 12/16/17 12/16/17 12:35 12:35 WBC RBC Hgb Hct MCV MCH MCHC RDW Plt Count MPV Neut % (Auto) Lymph % (Auto) Sutter % (Auto) Eos % (Auto) Baso % (Auto) Neut # (Auto) Lymph # (Auto) Sutter # (Auto) Eos # (Auto) Baso # (Auto) WBC Differential Differential Comment PT INR APTT Sodium 145 Potassium 3.4 L Chloride 110 H Carbon Dioxide 26.5 Anion Gap 9 BUN 16 Creatinine 0.93 Estimated GFR 62 L Random Glucose 115 H Calcium 8.9 Phosphorus Magnesium Total Bilirubin AST ALT Alkaline Phosphatase Lactate Dehydrogenase Total Protein Albumin Lipase Serum Alcohol Hepatitis A IgM Ab Nonreactive Hep Bs Antigen Nonreactive Hep B Core IgM Ab Nonreactive Hep C IgG Ab Nonreactive - Imaging Impressions Cholangiopancreatography MRI 12/16/17 00:00 CONCLUSION: 1. The head of the pancreas is enlarged with diffuse inflammatory change consistent with the history of pancreatitis. 2. Small apparent gallbladder wall polyp again noted with no definite evidence of cholelithiasis. No filling defect in common bile duct which is at the upper limits of normal in size. Abdomen/Pelvis CT 12/16/17 05:17 CONCLUSION: 1. CT findings characteristic of an acute pancreatitis with peripancreatic inflammatory changes. 2. Patchy airspace disease posterior laterally in the right base. Diagnostic considerations include atelectasis or early infiltrate Gallbladder Ultrasound 12/16/17 08:46 CONCLUSION: 1. No evidence of cholelithiasis. There is a small nonmobile echogenic structure along the gallbladder wall which could represent a small polyp. There is no gallbladder wall thickening or biliary obstruction. 2. Limited visualization of pancreas. The head appeared grossly unremarkable. <Mile Gomez - Last Filed: 12/16/17 17:13> Assessment and Plan (1) Pancreatitis Status: Acute Code(s): K85.90 - Acute pancreatitis without necrosis or infection, unspecified - Plan Assessment: - Acute pancreatitis with elevated LFTs [id number] AST-341 ALT-272 Alk phos-[address] abdomen and pelvis W IV contrast --> Ct findings characteristic of an acute pancreatitis with peripancreatic inflammatory changes Pt complaining of epigastric pain that came on suddenly last night, described as burning, constant. Associated nausea and vomiting, denies hematemesis and coffee ground emesis. Denies history of pancreatitis. Unsure of family history of pancreatic issues , states his mother has 1/3 of her stomach. Denies ETOH, illicit drug use. Only new medication is Atrovent, denies any other OTC or prescription medications. Denies previous cholecystectomy. Denies history of liver issues, tattoos, history of IV drug use, high risk sexual behaviors. Plan: US gallbladder per [facility] MRCP ABG at 48 hours admission for [place] criteria Lipid panel Hepatitis panel RYLAN IgG4 NPO IVF Pain control Monitor electrolytes Antiemetics PRN Pepcid Further recommendations based on clinical course and results of above Pt has been seen and examined by myself and Dr. Gomez and this note is written on his behalf <Chary Jarquin - Last Filed: 12/16/17 09:34> (1) Pancreatitis Status: Acute Code(s): K85.90 - Acute pancreatitis without necrosis or infection, unspecified - Plan Patient was seen and examined, agree with above note, MRCP did not show common bile duct stone, questionable etiology for the pancreatitis we will check IgG4 and profile, continue supportive care patient may have passed a stone or sludge <Mile Gomez - Last Filed: 12/16/17 17:13> <Chary Jarquin - Last Filed: 12/16/17 09:34> (1) Pancreatitis Qualifiers: Chronicity: acute Pancreatitis type: unspecified pancreatitis type Acute pancreatitis complication: unspecified Qualified Code(s): K85.90 - Acute pancreatitis without necrosis or infection, unspecified <Mile Gomez - Last Filed: 12/16/17 17:13> (1) Pancreatitis Qualifiers: Chronicity: acute Pancreatitis type: unspecified pancreatitis type Acute pancreatitis complication: unspecified Qualified Code(s): K85.90 - Acute pancreatitis without necrosis or infection, unspecified
--- NOTE | 2017-12-16 09:54 | US ---
EXAM DATE: 12/16/2017 9:50 AM EDT AGE/SEX: 57 years / Female INDICATIONS: Patient with abdominal pain and pancreatitis. Please evaluate for gallstones. CLINICAL DATA: This is the patient's initial encounter. Patient reports that signs and/or symptoms h ave been present for 1 day and indicates a pain score of 10/10. MEDICAL/SURGICAL HISTORY: Emphysema. Fusion, lumbar. COMPARISON: [facility] – [place], CT ABDOMEN & PELVIS W CONTRAST, 12/16/2017. . MEASUREMENTS: Liver:__ 19.4 cm. Common Bile Duct:__ 4mm. FINDINGS: Liver: Increased echotexture without focal lesion or ductal dilation. Portal Vein: Hepatopedal flow seen in portal vein. Common Duct: No intraluminal mass or stone visualized. Gallbladder: Gallbladder is normal in size and wall thickness. There is a small nonmobile echogenic structure along the gallbladder wall measuring 5 x 8 mm with no posterior shadowing. There is no kisha cholecystic fluid. Pancreas: Portions of the head were visualized and appear grossly unremarkable. The majority of the pancreas could not be well visualized. There is no pancreatic ductal dilatation 5. Right Kidney: Normal echotexture and cortical thickness. No mass or hydronephrosis. Other: None. CONCLUSION: 1. No evidence of cholelithiasis. There is a small nonmobile echogenic structure along the gallbladd er wall which could represent a small polyp. There is no gallbladder wall thickening or biliary obstr uction. 2. Limited visualization of pancreas. The head appeared grossly unremarkable. Electronically signed by: Denzel Head MD 12/16/2017 9:53 AM EDT
[2017-12-16] MEDS: Heparin - SQ 10,000 UNITS/ML Vial SQ SCH ×2 (09:55→20:55)
[2017-12-16] MEDS: Multivitamin Inj 10 ML, Folic Acid Inj 1 MG in Sodium Chlor 0.9% Inj 500 ML IV.SIG SCH (09:56)
[2017-12-16] MEDS: Famotidine PF Inj 20 MG/2 ML Vial IV.PUSH SCH (09:56)
[2017-12-16] MEDS: HYDROmorphone PF Inj 2 MG/ML Vial IV.PUSH PRN ×3 (11:28→20:55)
[2017-12-16] MEDS: Thiamine Inj 500 MG in Sodium Chlor 0.9% Inj 250 ML IV.SIG SCH (11:49)
[2017-12-16 13:19] LABS: Calcium 8.9 mg/dL (8.5-10.1); Carbon Dioxide 26.5 meq/L (21.0-32.0); Potassium 3.4 meq/L (3.5-5.1)
[2017-12-16 14:30] LABS: Hepatitits B Surface Antigen Nonreactive (Nonreactive)
[2017-12-16 14:32] LABS: Hepatitis A IgM Antibody Nonreactive (Nonreactive)
--- NOTE | 2017-12-16 15:42 | MR ---
EXAM DATE: 12/16/2017 2:59 PM EDT AGE/SEX: 57 years / Female INDICATIONS: Abdominal pain. Acute pancreatitis seen on CT. Abdomen ultrasound demonstrating a smal l apparent gallbladder wall polyp. CLINICAL DATA: This is the patient's initial encounter. Patient reports that signs and symptoms have been present for 2 days and indicates a pain score of 6/10. MEDICAL/SURGICAL HISTORY: None. Fusion, lumbar. COMPARISON: [facility] – [place], CT ABDOMEN & PELVIS W CONTRAST, 12/16/2017. . TECHNIQUE: Multiplanar, multisequence images of the abdomen were obtained without contrast including dedicated cholangiographic images. FINDINGS: Liver: The liver is homogeneous and normal in signal intensity with no focal defects. There is a sma ll amount of ascitic fluid surrounding the liver margin. Intrahepatic Bile Ducts: There is no intrahepatic biliary ductal dilatation. Common Bile Duct: The common bile duct is at the upper limits of normal in size. No filling defects or obstructing lesions are identified. Gallbladder: The gallbladder is normal with no definite evidence for cholelithiasis, gallbladder wal l thickening, or pericholecystic fluid. There is a small low signal structure along the posterior gal lbladder wall measuring up to 4 mm in size and appears to correspond to the finding on ultrasound lik kalli represents a small gallbladder wall polyp. Pancreas: The head of the pancreas is enlarged and inhomogeneous with diffuse edema and small amount of ascitic fluid extending into the tissue planes. The pancreatic duct is within normal limits. Tail and body appear fairly unremarkable. CONCLUSION: 1. The head of the pancreas is enlarged with diffuse inflammatory change consistent with the history of pancreatitis. 2. Small apparent gallbladder wall polyp again noted with no definite evidence of cholelithiasis. No filling defect in common bile duct which is at the upper limits of normal in size. Electronically signed by: Denzel Head MD 12/16/2017 3:41 PM EDT
[2017-12-16] MEDS: Piperacil/Tazo 3.375 GM Premix 50 ML IV.SIG SCH (16:55)
--- NOTE | 2017-12-16 18:00 | P.HPCC ---
History of Present Illness Service: Critical care medicine Primary Care Physician: No Primary Care Physician Chief Complaint: Abdominal pain History of Present Illness: This is a 57-year-old female with a unremarkable past medical history who presents with 1 day history of severe abdominal pain. She states this started yesterday afternoon. She denies alcohol use, and specifically states that she had one beer about a week ago and one lola about a month ago. She states that her mother had a history of gallstones. She endorses nausea/vomiting. Her emesis is nonbilious and not bloody. She denies any hematemesis or bright red blood per rectum. She denies any fever/chills. Denies any other symptoms including shortness of breath chest pain. In the emergency department she has severely elevated lipase greater than 15,000. CT scan is positive for acute pancreatitis. MRCP does not demonstrate any stone. Right upper quadrant ultrasound does not demonstrate dilated biliary ducts. The remainder of the review of systems is negative unless otherwise stated. Inpatient Certification: I certify that the inpatient services were ordered in accordance with Medicare regulations governing the order. This includes certification that hospital inpatient services are reasonable and necessary and in the case of services not specified as inpatient-only under 42 CFR 419.22(n), that they are appropriately provided as inpatient services in accordance to with the 2-midnight benchmark under 43 CFR 412.3(e) Estimated Total Length of Stay (Days): 7 Plans for Post Hospital Care: Not yet determined Review of Systems All other systems reviewed negative except as stated in HPI PMFSH - History History Provided By: Patient - Medical History Medical History: Medical History (Last Updated 12/16/17 @ 02:52 by Antonio Mahoney) Emphysema lung Post surgical complication - Tobacco History Tobacco Use In Past 30 Days: Yes Smoking Status: Heavy tobacco smoker Tobacco Type: Cigarettes - Alcohol History How Often Do You Have a Drink Containing Alcohol: Monthly or less - Substance Use History Substance History: No History of Abuse - Travel History Recent Travel in the [place] Within the Last 8 Weeks: No Recent Travel Out of the Country Within the Last 8 Weeks: No - Immunization History Tetanus Immunization: >5 Years Hx Influenza Vaccine This Season: No Medications and Allergies Active Medications: Active Medications Albuterol (Duoneb Neb (Prn)) 1 ampul NEB Q2HR NEB PRN PRN Reason: WHEEZING Chlorhexidine Gluconate (Chlorhexidine 2% Cloth) 3 pack TOPICAL DAILY@0400 [facility] Stop: 12/22/17 03:59 Chlorhexidine Gluconate (Chlorhexidine 2% Cloth) 3 pack TOPICAL DAILY@0400 PRN PRN Reason: Extra cloth needed Stop: 12/22/17 03:59 Famotidine (Pepcid Pf Inj) 20 mg IV.PUSH Q12HR [facility] Last Admin: 12/16/17 09:56 Dose: 20 mg Flumazenil (Romazecon Inj) 0.2 mg IV.PUSH Q1M PRN PRN Reason: OVERSEDATION Folic Acid (Folic Acid) 1 mg PO DAILY [facility] Stop: 12/25/17 09:01 Haloperidol Lactate (Haldol Inj) 5 mg IV.PUSH Q15M PRN PRN Reason: for severe agitation Heparin Sodium (Porcine) (Heparin Inj) 5,000 units SQ Q8H [facility] Last Admin: 12/16/17 09:55 Dose: 5,000 units Hydromorphone HCl (Dilaudid Pf Inj) 0.5 mg IV.PUSH Q1H PRN PRN Reason: PAIN 8-10 OR NOT TAKING PO Last Admin: 12/16/17 15:39 Dose: 0.5 mg Lactated Ringer's (Lr 1000 Ml Inj) 1,000 mls @ 125 mls/hr IV.CONT .Q8H [facility] Last Admin: 12/16/17 11:49 Dose: 125 mls/hr Magnesium Sulfate Inj 4 gm/ (Sodium Chloride) 100 mls @ 50 mls/hr IV.SIG UNSCH PRN PRN Reason: For Magnesium 0.9 - 1.1 mg/dL Potassium Chloride (Kcl 40 Meq Premix Inj) 40 meq in 100 mls @ 25 mls/hr IV.SIG Q2H PRN PRN Reason: For Potassium 2.8 - 3.2 mEq/L Potassium Chloride (Kcl 20 Meq Premix Inj) 20 meq in 100 mls @ 50 mls/hr IV.SIG Q2H PRN PRN Reason: For Potassium 3.3 - 3.5 mEq/L Potassium Chloride (Kcl 40 Meq Premix Inj) 40 meq in 100 mls @ 25 mls/hr IV.SIG UNSCH PRN PRN Reason: For Potassium 3.3 - 3.5 mEq/L Potassium Chloride (Kcl 20 Meq Premix Inj) 20 meq in 100 mls @ 50 mls/hr IV.SIG Q2H PRN PRN Reason: For Potassium 2.8 - 3.2 mEq/L Potassium Phosphate 30 mmol/ (Sodium Chloride) 260 mls @ 42 mls/hr IV.SIG UNSCH PRN PRN Reason: SEE LABEL COMMENTS Sodium Phosphate 30 mmol/ (Sodium Chloride) 260 mls @ 42 mls/hr IV.SIG UNSCH PRN PRN Reason: For Phosphorus < 2.5 mg/dL Piperacillin/Tazobactam/Dextrose (Zosyn 3.375 Gm Premix) 50 mls @ 100 mls/hr IV.SIG Q8H [facility] Last Admin: 12/16/17 16:55 Dose: 100 mls/hr Magnesium Sulfate Inj 2 gm/ (Sodium Chloride) 100 mls @ 50 mls/hr IV.SIG UNSCH PRN PRN Reason: For Magnesium 1.2 - 1.6 mg/dL Thiamine HCl 500 mg/ Sodium (Chloride) 255 mls @ 62.5 mls/hr IV.SIG Q8H [facility] Stop: 12/18/17 09:59 Last Admin: 12/16/17 11:49 Dose: 62.5 mls/hr Thiamine HCl 500 mg/ Sodium (Chloride) 505 mls @ 21 mls/hr IV.SIG Q24H [facility] Stop: 12/23/17 09:01 Multivitamins 10 ml/ Folic (Acid 1 mg/ Sodium Chloride) 510.2 mls @ 125 mls/hr IV.SIG DAILY [facility] Stop: 12/21/17 08:59 Last Admin: 12/16/17 09:56 Dose: 125 mls/hr Lorazepam (Ativan) 1 mg PO Q4H PRN PRN Reason: for CIWA 8-10 Lorazepam (Ativan Inj) 2 mg IV.PUSH Q2H PRN PRN Reason: for CIWA 11-14 Lorazepam (Ativan Inj) 2 mg IV.PUSH Q1H PRN PRN Reason: for CIWA 15-20 Lorazepam (Ativan Inj) 2 mg IV.PUSH Q15M PRN PRN Reason: for CIWA > 20 Lorazepam (Ativan Inj) 1 mg IV.PUSH Q4H PRN PRN Reason: for CIWA 8-10 Lorazepam (Ativan) 2 mg PO Q2H PRN PRN Reason: for CIWA 11-14 Magnesium Oxide (Mag-Ox) 800 mg PO UNSCH PRN PRN Reason: For Magnesium 1.2 - 1.6 mg/dL Multivitamins/Minerals (Theragran-M) 1 tab PO DAILY [facility] Stop: 12/25/17 08:59 Ondansetron HCl (Zofran Odt) 4 mg PO Q6H PRN PRN Reason: NAUSEA OR VOMITING Potassium Bicarb/Potassium Chloride (K-Lyte Cl Eff) 50 meq PO UNSCH PRN PRN Reason: For Potassium 3.3 - 3.5 mEq/L Potassium Phosphate (K-Phos Original) 2,000 mg PO Q4H PRN PRN Reason: Phosphorus Less Than 2.5 mg/dL Potassium Phosphate (K-Phos Original) 2,000 mg PO UNSCH PRN PRN Reason: SEE LABEL COMMENTS Sodium Chloride (Ns Flush) 2 ml IV.FLUSH BID [facility] Sodium Chloride (Ns Flush) 2 ml IV.FLUSH UNSCH PRN PRN Reason: FLUSH AFTER USING IV ACCESS Thiamine HCl (Vitamin B1) 100 mg PO DAILY [facility] Allergies Allergy/AdvReac Type Severity Reaction Status Date / Time Sulfa (Sulfonamide Allergy Severe HIVES Verified 10/11/17 12:43 Antibiotics) Home Medications Medication Instructions Recorded Confirmed Type duloxetine [Cymbalta] See Label Instructions .ROUTE 12/16/17 12/16/17 History .COMPLEX morphine 30 mg PO BID PRN MDD 60 12/16/17 12/16/17 History oxycodone-acetaminophen [Percocet] 1 tab PO BID PRN 12/16/17 12/16/17 History rivaroxaban [Xarelto] 20 mg PO DAILY 12/16/17 12/16/17 History Results - Labs CBC & Chem 7: 12/16/17 03:05 12/16/17 12:35 Labs: Short CBC 12/16/17 Range/Units 03:05 WBC 21.0 H (4.0-11.0) th/mm3 Hgb 16.7 H (11.6-15.3) gm/dL Hct 49.5 H (35.0-46.0) % Plt Count 200 (150-450) th/mm3 BMP 12/16/17 12/16/17 03:46 12:35 Sodium 144 145 Potassium 4.0 3.4 L Chloride 111 H 110 H Carbon Dioxide 28.2 26.5 BUN 19 H 16 Creatinine 1.05 H 0.93 Calcium 9.1 8.9 Liver Function 12/16/17 Range/Units 03:46 Total Bilirubin 0.8 (0.2-1.0) mg/dL AST 341 H (15-37) U/L ALT 272 H (10-53) U/L Alkaline Phosphatase 141 H (45-117) U/L Albumin 3.7 (3.4-5.0) g/dL - Imaging Impressions Cholangiopancreatography MRI 12/16/17 00:00 CONCLUSION: 1. The head of the pancreas is enlarged with diffuse inflammatory change consistent with the history of pancreatitis. 2. Small apparent gallbladder wall polyp again noted with no definite evidence of cholelithiasis. No filling defect in common bile duct which is at the upper limits of normal in size. Abdomen/Pelvis CT 12/16/17 05:17 CONCLUSION: 1. CT findings characteristic of an acute pancreatitis with peripancreatic inflammatory changes. 2. Patchy airspace disease posterior laterally in the right base. Diagnostic considerations include atelectasis or early infiltrate Gallbladder Ultrasound 12/16/17 08:46 CONCLUSION: 1. No evidence of cholelithiasis. There is a small nonmobile echogenic structure along the gallbladder wall which could represent a small polyp. There is no gallbladder wall thickening or biliary obstruction. 2. Limited visualization of pancreas. The head appeared grossly unremarkable. Exam Vital signs: Vital Signs 12/16/17 02:47 12/16/17 02:50 12/16/17 06:05 Temperature 37.0 C Pulse Rate 66 78 Respiratory Rate 17 20 20 Blood Pressure 149/71 H 140/72 Pulse Oximetry 95 98 12/16/17 07:33 12/16/17 08:00 12/16/17 10:00 Temperature 37.2 C Pulse Rate 72 76 78 Respiratory Rate 18 18 18 Blood Pressure 155/86 H 161/80 H 160/79 H Pulse Oximetry 94 L 93 L 91 L 12/16/17 11:30 12/16/17 14:00 12/16/17 16:59 Temperature Pulse Rate 90 108 H 100 H Respiratory Rate 18 18 26 H Blood Pressure 154/84 H 137/63 109/56 L Pulse Oximetry 94 L 93 L Intake & Output 12/15/17 12/16/17 12/16/17 18:59 06:59 18:59 Weight 68.039 kg Narrative: GENERAL: Middle-aged female, lying in bed, in distress due to abdominal pain HEENT: Normocephalic. Atraumatic. Pupils equal, round, reactive, conjugate. Mucous membranes are moist NECK: Trachea is midline. There is no JVD. CHEST: Equal chest rise. Room air. CARDIOVASCULAR: Tachycardic rate, regular rhythm. Sinus. ABDOMEN: Soft, generalized tenderness, worse in the midepigastrium, nondistended. No guarding. No hepatomegaly. Negative Dewitt sign. MUSCULOSKELETAL: Pulses 2+. No peripheral edema. NEUROLOGICAL: RASS 0. Moves all extremities. No focal deficits. Septic Shock Reassessment Septic shock perfusion: reassessment completed Caprini VTE Risk Assessment Caprini VTE Risk Assessment: Moderate/High Risk (score >= 2) Caprini Risk Assessment Model: Point Value = 1 Point Value = 2 Point Value = 3 Point Value = 5 Age 41-60 Minor surgery BMI > 25 kg/m2 Swollen legs Varicose veins or History of unexplained or recurrent spontaneous Oral contraceptives or hormone replacement Sepsis (< 1 month) Serious lung disease, including pneumonia (< 1 month) Abnormal pulmonary function Acute myocardial infarction Congestive heart failure (< 1 month) History of inflammatory bowel disease Medical patient at bed rest Age 61-74 Arthroscopic surgery Major open surgery (> 45 min) Laparoscopic surgery (> 45 min) Malignancy Confined to bed (> 72 hours) Immobilizing plaster cast Central venous access Age >= 75 History of VTE Family history of VTE Factor V Leiden Prothrombin [id number] Lupus anticoagulant Anticardiolipin antibodies Elevated serum homocysteine Heparin-induced thrombocytopenia Other congenital or acquired thrombophilia Stroke (< 1 month) Elective arthroplasty Hip, pelvis, or leg fracture Acute spinal cord injury (< 1 month) Prophylaxis Regimen: Total Risk Factor Score Risk Level Prophylaxis Regimen 0-1 Low Early ambulation 2 Moderate Order ONE of the following: *Sequential Compression Device (SCD) *Heparin 5000 units SQ BID 3-4 Higher Order ONE of the following medications: *Heparin 5000 units SQ TID *Enoxaparin/Lovenox 40 mg SQ daily (WT < 150 kg, CrCl > 30 mL/min) *Enoxaparin/Lovenox 30 mg SQ daily (WT < 150 kg, CrCl > 10-29 mL/min) *Enoxaparin/Lovenox 30 mg SQ BID (WT < 150 kg, CrCl > 30 mL/min) AND/OR *Sequential Compression Device (SCD) 5 or more Highest Order ONE of the following medications: *Heparin 5000 units SQ TID (Preferred with Epidurals) *Enoxaparin/Lovenox 40 mg SQ daily (WT < 150 kg, CrCl > 30 mL/min) *Enoxaparin/Lovenox 30 mg SQ daily (WT < 150 kg, CrCl > 10-29 mL/min) *Enoxaparin/Lovenox 30 mg SQ BID (WT < 150 kg, CrCl > 30 mL/min) AND *Sequential Compression Device (SCD) Assessment and Plan - Assessment and Plan Plan: Assessment: 57-year-old female with risk factors including tobacco use, family history who presents with severe acute pancreatitis. By [place]'s criteria, she has 4 points, suggestive of worse outcomes. I agree with ICU admission, ivf resuscitation and close monitoring. Active Problems: Severe pain secondary to acute pancreatitis Acute Severe pancreatitis Acute kidney injury Acute liver injury Plan: - admit to ICU - trend LFTs - trend BMP - ivf resuscitation - dilaudid iv for pain - strict NPO - GI consultation - jeronimo - RUQ ultrasound - empiric coverage with zosyn until cultures are negative SCDs SQH PPI
[2017-12-16 23:48] LABS: Chol/HDL Ratio 2.19 Ratio; HDL Cholesterol 52.5 mg/dL (40.0-60.0)
[2017-12-17] MEDS: Heparin - SQ 10,000 UNITS/ML Vial SQ SCH ×3 (01:00→19:22)
[2017-12-17] MEDS: HYDROmorphone PF Inj 2 MG/ML Vial IV.PUSH PRN ×7 (01:39→19:30)
[2017-12-17] MEDS: Piperacil/Tazo 3.375 GM Premix 50 ML IV.SIG SCH ×3 (01:42→16:53)
[2017-12-17] MEDS: Famotidine PF Inj 20 MG/2 ML Vial IV.PUSH SCH ×2 (01:43→11:08)
[2017-12-17] MEDS ORDERED: Chlorhexidine Gluconate 2% 1 Pack (2 Cloths) TOPICAL PRN (04:00)
[2017-12-17] MEDS: Thiamine Inj 500 MG in Sodium Chlor 0.9% Inj 250 ML IV.SIG SCH ×5 (07:37→20:09)
[2017-12-17 07:51] LABS: Hematocrit 46.4 % (35.0-46.0); Hemoglobin 15.3 gm/dL (11.6-15.3); Mean Corpuscular HGB Conc 33.1 % (32.0-36.0); Mean Corpuscular Hemoglobin 29.6 pg (27.0-34.0); Mean Corpuscular Volume 89.5 fL (80.0-100.0); Mean Platelet Volume 10.1 fL (7.0-11.0); Platelet Count 136 th/mm3 (150-450); Red Blood Count 5.18 mil/mm3 (4.00-5.30); Red Cell Distribution Width 16.5 % (11.6-17.2); White Blood Count 16.4 th/mm3 (4.0-11.0)
[2017-12-17 08:26] LABS: Alanine Aminotransferase 125 U/L (10-53); Albumin 2.6 g/dL (3.4-5.0); Alkaline Phosphatase 93 U/L (45-117); Anion Gap 10 meq/L (5-15); Aspartate Aminotransferase 46 U/L (15-37); Blood Urea Nitrogen 15 mg/dL (7-18); Calcium 8.3 mg/dL (8.5-10.1); Carbon Dioxide 25.2 meq/L (21.0-32.0); Chloride 109 meq/L (98-107); Glomerular Filtration Rate 67 mL/min (>89); Glucose,Random 94 mg/dL (74-106); Lipase 2540 U/L (73-393); Magnesium 1.8 mg/dL (1.5-2.5); Potassium 3.2 meq/L (3.5-5.1); Sodium 144 meq/L (136-145); Total Protein 6.4 g/dL (6.4-8.2)
--- NOTE | 2017-12-17 08:45 | P.PNCC ---
Subjective Subjective Remarks/Hospital Course: This is a 57-year-old female with a unremarkable past medical history who presents with 1 day history of severe abdominal pain. She states this started yesterday afternoon. She denies alcohol use, and specifically states that she had one beer about a week ago and one lola about a month ago. She states that her mother had a history of gallstones. She endorses nausea/vomiting. Her emesis is nonbilious and not bloody. She denies any hematemesis or bright red blood per rectum. She denies any fever/chills. Denies any other symptoms including shortness of breath chest pain. In the emergency department she has severely elevated lipase greater than 15,000. CT scan is positive for acute pancreatitis. MRCP does not demonstrate any stone. Right upper quadrant ultrasound does not demonstrate dilated biliary ducts. The remainder of the review of systems is negative unless otherwise stated. 12/17: Patient seen in the ED. she states that she is slightly improved. Still has nausea without vomiting. Lipase decreased from 16,000-2500. WBC count also trending down. Creatinine normal. Calcium 8.3. Currently approximately 3 Marni's criteria, but 48 hours has not passed yet for ABG and other components Objective Vital Signs / I&O: Vital Signs 12/16/17 10:00 12/16/17 11:30 12/16/17 14:00 Temperature Pulse Rate 78 90 108 H Respiratory Rate 18 18 18 Blood Pressure 160/79 H 154/84 H 137/63 Pulse Oximetry 91 L 94 L 12/16/17 16:59 12/16/17 19:30 12/16/17 21:05 Temperature 101.6 F H Pulse Rate 100 H 92 H 98 H Respiratory Rate 26 H 20 22 Blood Pressure 109/56 L 118/67 116/57 L Pulse Oximetry 93 L 95 94 L 12/16/17 22:00 12/17/17 00:00 12/17/17 00:51 Temperature 101.0 F H Pulse Rate 90 95 H 89 Respiratory Rate 22 19 18 Blood Pressure 119/55 L 109/53 L Pulse Oximetry 96 95 12/17/17 02:00 12/17/17 04:00 12/17/17 04:13 Temperature Pulse Rate 92 H 86 85 Respiratory Rate 23 22 18 Blood Pressure 106/57 L 117/60 Pulse Oximetry 94 L 94 L 12/17/17 06:00 12/17/17 08:09 Temperature 100.6 F H Pulse Rate 90 92 H Respiratory Rate 23 18 Blood Pressure 115/57 L 115/57 L Pulse Oximetry 94 L 92 L Intake & Output 12/16/17 12/17/17 12/17/17 18:59 06:59 18:59 Intake Total 50 / 50 1560 / 1560 Output Total 200 / 200 Balance 50 / 50 1560 / 1560 -200 / -200 Intake: IV 50 / 50 1560 / 1560 LR 1000 mL Inj 1,000 ML @ 125 1000 / 1000 mls/hr IV.CONT .Q8H [facility] Rx#: [id number] Zosyn 3.375 GM Premix 50 ML @ 50 / 50 50 / 50 100 mls/hr IV.SIG Q8H [facility] Rx#: [id number] Thiamine Inj 500 MG In NS Inj 510 / 510 250 ML @ 62.5 mls/hr IV.SIG Q8H [facility] Rx#:[id number] Output: Urine 200 / 200 Result Diagrams: 12/17/17 05:17 12/17/17 05:17 Objective Remarks: GENERAL: Middle-aged female, lying in bed, in mild distress due to abdominal pain HEENT: Normocephalic. Atraumatic. Pupils equal, round, reactive, conjugate. Mucous membranes are moist NECK: Trachea is midline. There is no JVD. CHEST: Equal chest rise. Room air. CARDIOVASCULAR: Tachycardic rate, in 90s, regular rhythm. Sinus. ABDOMEN: Soft, generalized tenderness, in the midepigastrium, and bilateral upper quadrants nondistended. No guarding. No hepatomegaly. Negative Dewitt MUSCULOSKELETAL: Pulses 2+. No peripheral edema. NEUROLOGICAL: Alert awake oriented. Moves all extremities. No focal deficits. Assessment and Plan - Assessment and Plan Plan: Assessment: 57-year-old female with risk factors including tobacco use, family history who presents with severe acute pancreatitis. By Marni's criteria, she has 4 points, suggestive of worse outcomes. I agree with ICU admission, ivf resuscitation and close monitoring. Active Problems: Severe pain secondary to acute pancreatitis Acute Severe pancreatitis Acute kidney injury Acute liver injury Plan: - Change admission to Step down unit, clinically improving pancreatitis - trend LFTs - trend CMP. ABG tomorrow for Marni's criteria - ivf resuscitation - dilaudid iv for pain - strict NPO, until cleared by GI - GI consultation - jeronimo - RUQ ultrasound-shows gallbladder polyp - empiric coverage with zosyn until cultures are negative - SCDs, SQH, PPI -Patient admits to heavy drinking before she sees several years ago, still drinks but she claims socially. Possible that her pancreatitis related to alcohol consumption. MRCP unremarkable except for gallbladder polyp. Code Status: Full
--- NOTE | 2017-12-17 10:32 | P.PNGI ---
Subjective Interval history: Pt resting in bed, significant other at bedside. Complaining of continued epigastric pain, but has noticed some improvement. Continued nausea but no further emesis. Pt states she would like to eat. <LinoChary melvin - Last Filed: 12/17/17 12:25> Physical Exam Vital signs: Vital Signs 12/16/17 11:30 12/16/17 14:00 12/16/17 16:59 Temperature Pulse Rate 90 108 H 100 H Respiratory Rate 18 18 26 H Blood Pressure 154/84 H 137/63 109/56 L Pulse Oximetry 94 L 93 L 12/16/17 19:30 12/16/17 21:05 12/16/17 22:00 Temperature 101.6 F H Pulse Rate 92 H 98 H 90 Respiratory Rate 20 22 22 Blood Pressure 118/67 116/57 L 119/55 L Pulse Oximetry 95 94 L 96 12/17/17 00:00 12/17/17 00:51 12/17/17 02:00 Temperature 101.0 F H Pulse Rate 95 H 89 92 H Respiratory Rate 19 18 23 Blood Pressure 109/53 L 106/57 L Pulse Oximetry 95 94 L 12/17/17 04:00 12/17/17 04:13 12/17/17 06:00 Temperature 100.6 F H Pulse Rate 86 85 90 Respiratory Rate 22 18 23 Blood Pressure 117/60 115/57 L Pulse Oximetry 94 L 94 L 12/17/17 08:09 Temperature Pulse Rate 92 H Respiratory Rate 18 Blood Pressure 115/57 L Pulse Oximetry 92 L Intake & Output 12/16/17 12/17/17 12/17/17 18:59 06:59 18:59 Intake Total 50 / 50 1560 / 1560 Output Total 200 / 200 Balance 50 / 50 1560 / 1560 -200 / -200 Intake: IV 50 / 50 1560 / 1560 LR 1000 mL Inj 1,000 ML @ 125 1000 / 1000 mls/hr IV.CONT .Q8H [facility] Rx#: [id number] Zosyn 3.375 GM Premix 50 ML @ 50 / 50 50 / 50 100 mls/hr IV.SIG Q8H [facility] Rx#: [id number] Thiamine Inj 500 MG In NS Inj 510 / 510 250 ML @ 62.5 mls/hr IV.SIG Q8H [facility] Rx#:[id number] Output: Urine 200 / 200 - Constitutional no acute distress - Routine HEENT Exam Head: Present: normocephalic, atraumatic - Routine Respiratory Exam Absent: accessory muscle use - Routine Cardiovascular Exam Present: RRR - Routine Abdominal Exam Present: soft, normoactive bowel sounds, tenderness (epigastric tenderness ) - Routine Skin Exam Present: dry, warm - Routine Neurological Exam Present: alert, oriented X3 <Chary Jarquin - Last Filed: 12/17/17 12:25> Vital signs: Vital Signs 12/16/17 16:59 12/16/17 19:30 12/16/17 21:05 Temperature 101.6 F H Pulse Rate 100 H 92 H 98 H Respiratory Rate 26 H 20 22 Blood Pressure 109/56 L 118/67 116/57 L Pulse Oximetry 93 L 95 94 L 12/16/17 22:00 12/17/17 00:00 12/17/17 00:51 Temperature 101.0 F H Pulse Rate 90 95 H 89 Respiratory Rate 22 19 18 Blood Pressure 119/55 L 109/53 L Pulse Oximetry 96 95 12/17/17 02:00 12/17/17 04:00 12/17/17 04:13 Temperature Pulse Rate 92 H 86 85 Respiratory Rate 23 22 18 Blood Pressure 106/57 L 117/60 Pulse Oximetry 94 L 94 L 12/17/17 06:00 12/17/17 08:09 12/17/17 11:00 Temperature 100.6 F H 99.3 F Pulse Rate 90 92 H 78 Respiratory Rate 23 18 23 Blood Pressure 115/57 L 115/57 L 108/57 L Pulse Oximetry 94 L 92 L 92 L 12/17/17 12:00 Temperature 101.2 F H Pulse Rate 78 Respiratory Rate 23 Blood Pressure 118/56 L Pulse Oximetry 92 L Intake & Output 12/16/17 12/17/17 12/17/17 18:59 06:59 18:59 Intake Total 560.2 / 560.2 2560 / 2560 375 / 375 Output Total 200 / 200 Balance 560.2 / 560.2 2560 / 2560 175 / 175 Intake: IV 560.2 / 560.2 2560 / 2560 255 / 255 LR 1000 mL Inj 1,000 ML @ 125 2000 / 2000 mls/hr IV.CONT .Q8H [facility] Rx#: [id number] MVI-12 Inj 10 ML Folvite Inj 1 510.2 / 510.2 MG In NS Inj 500 ML @ 125 mls/ hr IV.SIG DAILY [facility] Rx#: [id number] Zosyn 3.375 GM Premix 50 ML @ 50 / 50 50 / 50 100 mls/hr IV.SIG Q8H [facility] Rx#: [id number] Thiamine Inj 500 MG In NS Inj 510 / 510 255 / 255 250 ML @ 62.5 mls/hr IV.SIG Q8H [facility] Rx#:[id number] Oral 120 / 120 Output: Urine 200 / 200 Other: # Voids 1 <Mile Gomez - Last Filed: 12/17/17 14:41> Results - Labs CBC & Chem 7: 12/17/17 05:17 12/17/17 05:17 Laboratory Results - last 24 hr 12/16/17 12/16/17 12/16/17 12:35 12:35 12:35 WBC RBC Hgb Hct MCV MCH MCHC RDW Plt Count MPV Sodium 145 Potassium 3.4 L Chloride 110 H Carbon Dioxide 26.5 Anion Gap 9 BUN 16 Creatinine 0.93 Estimated GFR 62 L Random Glucose 115 H Calcium 8.9 Phosphorus Magnesium Total Bilirubin GGT AST ALT Alkaline Phosphatase Total Protein Albumin Triglycerides 61 Cancelled Cancelled Cholesterol 115 L Cancelled LDL Cholesterol, Calc 50 Cancelled HDL Cholesterol 52.5 Cancelled Cholesterol/HDL Ratio 2.19 Cancelled Lipase Hepatitis A IgM Ab Hep Bs Antigen Hep B Core IgM Ab Hep C IgG Ab 12/16/17 12/17/17 12/17/17 12:35 05:17 05:17 WBC 16.4 H RBC 5.18 Hgb 15.3 Hct 46.4 H MCV 89.5 MCH 29.6 MCHC 33.1 RDW 16.5 Plt Count 136 L D MPV 10.1 Sodium 144 Potassium 3.2 L Chloride 109 H Carbon Dioxide 25.2 Anion Gap 10 BUN 15 Creatinine 0.87 Estimated GFR 67 L Random Glucose 94 Calcium 8.3 L Phosphorus 3.0 Magnesium 1.8 Total Bilirubin 1.2 H GGT AST 46 H ALT 125 H Alkaline Phosphatase 93 Total Protein 6.4 D Albumin 2.6 L D Triglycerides Cholesterol LDL Cholesterol, Calc HDL Cholesterol Cholesterol/HDL Ratio Lipase 2540 H Hepatitis A IgM Ab Nonreactive Hep Bs Antigen Nonreactive Hep B Core IgM Ab Nonreactive Hep C IgG Ab Nonreactive 12/17/17 05:17 WBC RBC Hgb Hct MCV MCH MCHC RDW Plt Count MPV Sodium Potassium Chloride Carbon Dioxide Anion Gap BUN Creatinine Estimated GFR Random Glucose Calcium Phosphorus Magnesium Total Bilirubin GGT 97 H AST ALT Alkaline Phosphatase Total Protein Albumin Triglycerides Cholesterol LDL Cholesterol, Calc HDL Cholesterol Cholesterol/HDL Ratio Lipase Hepatitis A IgM Ab Hep Bs Antigen Hep B Core IgM Ab Hep C IgG Ab - Imaging Impressions Cholangiopancreatography MRI 12/16/17 00:00 CONCLUSION: 1. The head of the pancreas is enlarged with diffuse inflammatory change consistent with the history of pancreatitis. 2. Small apparent gallbladder wall polyp again noted with no definite evidence of cholelithiasis. No filling defect in common bile duct which is at the upper limits of normal in size. <Chary Jarquin - Last Filed: 12/17/17 12:25> - Labs CBC & Chem 7: 12/17/17 05:17 12/17/17 05:17 Laboratory Results - last 24 hr 12/16/17 12/16/17 12/16/17 12:35 12:35 12:35 WBC RBC Hgb Hct MCV MCH MCHC RDW Plt Count MPV Sodium 145 Potassium 3.4 L Chloride 110 H Carbon Dioxide 26.5 Anion Gap 9 BUN 16 Creatinine 0.93 Estimated GFR 62 L Random Glucose 115 H Calcium 8.9 Phosphorus Magnesium Total Bilirubin GGT AST ALT Alkaline Phosphatase Total Protein Albumin Triglycerides 61 Cancelled Cancelled Cholesterol 115 L Cancelled LDL Cholesterol, Calc 50 Cancelled HDL Cholesterol 52.5 Cancelled Cholesterol/HDL Ratio 2.19 Cancelled Lipase 12/17/17 12/17/17 12/17/17 05:17 05:17 05:17 WBC 16.4 H RBC 5.18 Hgb 15.3 Hct 46.4 H MCV 89.5 MCH 29.6 MCHC 33.1 RDW 16.5 Plt Count 136 L D MPV 10.1 Sodium 144 Potassium 3.2 L Chloride 109 H Carbon Dioxide 25.2 Anion Gap 10 BUN 15 Creatinine 0.87 Estimated GFR 67 L Random Glucose 94 Calcium 8.3 L Phosphorus 3.0 Magnesium 1.8 Total Bilirubin 1.2 H GGT 97 H AST 46 H ALT 125 H Alkaline Phosphatase 93 Total Protein 6.4 D Albumin 2.6 L D Triglycerides Cholesterol LDL Cholesterol, Calc HDL Cholesterol Cholesterol/HDL Ratio Lipase 2540 H - Imaging Impressions Cholangiopancreatography MRI 12/16/17 00:00 CONCLUSION: 1. The head of the pancreas is enlarged with diffuse inflammatory change consistent with the history of pancreatitis. 2. Small apparent gallbladder wall polyp again noted with no definite evidence of cholelithiasis. No filling defect in common bile duct which is at the upper limits of normal in size. <Mile Gomez - Last Filed: 12/17/17 14:41> Assessment and Plan (1) Pancreatitis Status: Acute Code(s): K85.90 - Acute pancreatitis without necrosis or infection, unspecified - Plan Assessment: - Acute pancreatitis with elevated LFTs [id number] AST-341 ALT-272 Alk phos-[address] abdomen and pelvis W IV contrast --> Ct findings characteristic of an acute pancreatitis with peripancreatic inflammatory changes Pt complaining of epigastric pain that came on suddenly last night, described as burning, constant. Associated nausea and vomiting, denies hematemesis and coffee ground emesis. Denies history of pancreatitis. Unsure of family history of pancreatic issues , states his mother has 1/3 of her stomach. Denies ETOH, illicit drug use. Only new medication is Atrovent, denies any other OTC or prescription medications. Denies previous cholecystectomy. Denies history of liver issues, tattoos, history of IV drug use, high risk sexual behaviors. (12/17) Able to obtain more history today, pt was vomiting and minimally answering questions yesterday. Does report occasional ETOH, states had half a beer last Saturday and prior to that a lola two months ago. She is concerned that she takes multiple pain medications and this could be a factor, (Tizanidine, Percocet, Morphine, Opana, Cymbalta, Xarelto). Reviewed these medications and do not see any as causative factor for pancreatitis. So far MRCP negative for CBD stones (although possibility of passed a stone or sludge), US negative for cholelithiasis. Lipid panel WNL. Lipase improved significantly today and LFTs trending down. Hepatitis panel negative. Labs pending to rule out auto-immune pancreatitis * Discussed with Dr. Dixon Plan: ABG at 48 hours admission for [place] criteria RYLAN IgG4 NPO OK for ice chips Dependent on clinical presentation and [place] criteria at 48 hours, may start on clear liquids tomorrow IVF Pain control Monitor electrolytes Antiemetics PRN Pepcid Further recommendations based on clinical course and results of above Pt has been seen and examined by myself and Dr. Gomez and this note is written on his behalf <Chary Jarquin - Last Filed: 12/17/17 12:25> (1) Pancreatitis Status: Acute Code(s): K85.90 - Acute pancreatitis without necrosis or infection, unspecified - Attending Attestation Patient was seen and examined, more alert today, significant pancreatitis, slightly improvement on her pain level, I am sure there is a component of alcohol abuse because the patient stated that she had one drink and that her alcohol screen was positive, had a discussion with her about complete abstinence of alcohol, we will follow-up on labs and try to manage her pain which might be difficult because she used significant amount of pain medication at home <Mile Gomez - Last Filed: 12/17/17 14:41> <Chary Jarquin - Last Filed: 12/17/17 12:25> (1) Pancreatitis Qualifiers: Chronicity: acute Pancreatitis type: unspecified pancreatitis type Acute pancreatitis complication: unspecified Qualified Code(s): K85.90 - Acute pancreatitis without necrosis or infection, unspecified <Mile Gomez - Last Filed: 12/17/17 14:41> (1) Pancreatitis Qualifiers: Chronicity: acute Pancreatitis type: unspecified pancreatitis type Acute pancreatitis complication: unspecified Qualified Code(s): K85.90 - Acute pancreatitis without necrosis or infection, unspecified
[2017-12-17] MEDS: Multivitamin Inj 10 ML, Folic Acid Inj 1 MG in Sodium Chlor 0.9% Inj 500 ML IV.SIG SCH (11:44)
[2017-12-18] MEDS: Piperacil/Tazo 3.375 GM Premix 50 ML IV.SIG SCH ×4 (00:21→22:46)
[2017-12-18] MEDS: Heparin - SQ 10,000 UNITS/ML Vial SQ SCH ×3 (00:21→18:28)
[2017-12-18] MEDS: HYDROmorphone PF Inj 2 MG/ML Vial IV.PUSH PRN ×6 (00:22→18:28)
[2017-12-18] MEDS: LORazepam 1 MG Tablet PO PRN ×5 (00:32→22:45)
[2017-12-18] MEDS: Chlorhexidine Gluconate 2% 1 Pack (2 Cloths) TOPICAL SCH ×2 (03:34→08:46)
--- NOTE | 2017-12-18 07:05 | XR ---
EXAM DATE: 12/18/2017 6:57 AM EDT AGE/SEX: 57 years / Female INDICATIONS: Shortness of breath and cough. CLINICAL DATA: This is the patient's initial encounter. Patient reports that signs and symptoms have been present for 1 day and indicates a pain score of 0/10. MEDICAL/SURGICAL HISTORY: None. None. COMPARISON: [facility] – [place], [place] [facility], 10/11/2017. . FINDINGS: Left lung base consolidation is present not present previously. Right lung base opacity is present ma y be due to a combination of consolidation and or pleural effusion. CONCLUSION: Right lung base opacity is present may be due to a combination of consolidation and or pleural effusi on and left lung base consolidation not present previously. Electronically signed by: Rica Simmons MD 12/18/2017 7:03 AM EDT
[2017-12-18 07:53] LABS: Hematocrit 38.5 % (35.0-46.0); Hemoglobin 12.7 gm/dL (11.6-15.3); Mean Corpuscular HGB Conc 32.9 % (32.0-36.0); Mean Corpuscular Hemoglobin 29.5 pg (27.0-34.0); Mean Corpuscular Volume 89.6 fL (80.0-100.0); Mean Platelet Volume 9.4 fL (7.0-11.0); Platelet Count 108 th/mm3 (150-450); Red Cell Distribution Width 16.6 % (11.6-17.2); White Blood Count 10.6 th/mm3 (4.0-11.0)
[2017-12-18 08:23] LABS: Albumin 2.1 g/dL (3.4-5.0); Anion Gap 10 meq/L (5-15); Aspartate Aminotransferase 20 U/L (15-37); Blood Urea Nitrogen 9 mg/dL (7-18); Calcium 8.5 mg/dL (8.5-10.1); Carbon Dioxide 22.2 meq/L (21.0-32.0); Chloride 109 meq/L (98-107); Glomerular Filtration Rate Greater Than 89 mL/min (>89); Glucose,Random 81 mg/dL (74-106); Lipase 534 U/L (73-393); Potassium 3.7 meq/L (3.5-5.1); Sodium 141 meq/L (136-145)
[2017-12-18 08:28] LABS: Alanine Aminotransferase 70 U/L (10-53); Alkaline Phosphatase 84 U/L (45-117); Phosphorus 1.6 mg/dL (2.5-4.9)
[2017-12-18] MEDS: Multivitamin Inj 10 ML, Folic Acid Inj 1 MG in Sodium Chlor 0.9% Inj 500 ML IV.SIG SCH (09:20)
[2017-12-18] MEDS: Famotidine PF Inj 20 MG/2 ML Vial IV.PUSH SCH ×2 (09:21)
[2017-12-18] MEDS: Thiamine Inj 500 MG in Sodium Chlor 0.9% Inj 250 ML IV.SIG SCH (09:45)
--- NOTE | 2017-12-18 11:10 | P.PNGI ---
Subjective Interval history: Pt resting in bed. Complaining of continued severe abdominal pain. Continues to have a lot of nausea. <OdetteChary verma - Last Filed: 12/18/17 11:08> Physical Exam Vital signs: Vital Signs 12/17/17 12:00 12/17/17 15:00 12/17/17 15:32 Temperature 101.2 F H 98.5 F Pulse Rate 78 93 H 92 H Respiratory Rate 23 23 18 Blood Pressure 118/56 L 110/55 L Pulse Oximetry 92 L 93 L 94 L 12/17/17 19:00 12/17/17 19:38 12/17/17 20:00 Temperature 100.7 F H Pulse Rate 97 H 95 H 85 Respiratory Rate 20 22 Blood Pressure 97/50 L Pulse Oximetry 97 94 L 12/17/17 23:00 12/18/17 03:00 12/18/17 03:33 Temperature 99.8 F H 99.5 F Pulse Rate 82 77 Respiratory Rate 20 20 16 Blood Pressure 97/53 L 105/62 Pulse Oximetry 92 L 90 L 12/18/17 09:06 Temperature Pulse Rate Respiratory Rate Blood Pressure Pulse Oximetry 93 L Intake & Output 12/17/17 12/18/17 12/18/17 18:59 06:59 18:59 Intake Total 1990.2 / 1990.2 550 / 550 Output Total 200 / 200 850 / 850 Balance 1790.2 / 1790.2 -300 / -300 Weight 116 kg Intake: IV 1840.2 / 1840.2 300 / 300 LR 1000 mL Inj 1,000 ML @ 125 720 / 720 0 / 0 mls/hr IV.CONT .Q8H [facility] Rx#: [id number] MVI-12 Inj 10 ML Folvite Inj 1 510.2 / 510.2 MG In NS Inj 500 ML @ 125 mls/ hr IV.SIG DAILY [facility] Rx#: [id number] Zosyn 3.375 GM Premix 50 ML @ 100 / 100 50 / 50 100 mls/hr IV.SIG Q8H [facility] Rx#: [id number] Thiamine Inj 500 MG In NS Inj 510 / 510 250 / 250 250 ML @ 62.5 mls/hr IV.SIG Q8H [facility] Rx#:[id number] Oral 150 / 150 250 / 250 Output: Urine 200 / 200 850 / 850 Other: # Voids 2 - Constitutional no acute distress - Routine HEENT Exam Head: Present: normocephalic, atraumatic - Routine Respiratory Exam Absent: accessory muscle use - Routine Cardiovascular Exam Present: RRR - Routine Abdominal Exam Present: soft, normoactive bowel sounds, tenderness (diffuse tendernes to palpation ), distended - Routine Skin Exam Present: dry, warm - Routine Neurological Exam Present: alert, oriented X3 <Chary Jarquin - Last Filed: 12/18/17 11:08> Vital signs: Vital Signs 12/17/17 19:00 12/17/17 19:38 12/17/17 20:00 Temperature 100.7 F H Pulse Rate 97 H 95 H 85 Respiratory Rate 20 22 Blood Pressure 97/50 L Pulse Oximetry 97 94 L 12/17/17 23:00 12/18/17 03:00 12/18/17 03:33 Temperature 99.8 F H 99.5 F Pulse Rate 82 77 Respiratory Rate 20 20 16 Blood Pressure 97/53 L 105/62 Pulse Oximetry 92 L 90 L 12/18/17 07:00 12/18/17 08:00 12/18/17 09:00 Temperature 99.7 F H Pulse Rate 84 88 82 Respiratory Rate 20 Blood Pressure 110/61 Pulse Oximetry 93 L 12/18/17 09:06 12/18/17 10:00 12/18/17 11:00 Temperature 98.5 F Pulse Rate 84 80 Respiratory Rate 16 Blood Pressure 111/65 Pulse Oximetry 93 L 94 L 12/18/17 12:00 12/18/17 13:00 12/18/17 14:08 Temperature Pulse Rate 90 80 Respiratory Rate 16 Blood Pressure Pulse Oximetry Intake & Output 12/17/17 12/18/17 12/18/17 18:59 06:59 18:59 Intake Total 1989.2 / 1989.2 550 / 550 560.2 / 560.2 Output Total 200 / 200 850 / 850 Balance 1790.2 / 1790.2 -300 / -300 560.2 / 560.2 Weight 116 kg Intake: IV 1840.2 / 1840.2 300 / 300 560.2 / 560.2 LR 1000 mL Inj 1,000 ML @ 125 720 / 720 0 / 0 mls/hr IV.CONT .Q8H [facility] Rx#: [id number] MVI-12 Inj 10 ML Folvite Inj 1 510.2 / 510.2 510.2 / 510.2 MG In NS Inj 500 ML @ 125 mls/ hr IV.SIG DAILY [facility] Rx#: [id number] Zosyn 3.375 GM Premix 50 ML @ 100 / 100 50 / 50 50 / 50 100 mls/hr IV.SIG Q8H [facility] Rx#: [id number] Thiamine Inj 500 MG In NS Inj 510 / 510 250 / 250 250 ML @ 62.5 mls/hr IV.SIG Q8H [facility] Rx#:[id number] Oral 150 / 150 250 / 250 Output: Urine 200 / 200 850 / 850 Other: # Voids 2 <PatriciaAzaliafarideh - Last Filed: 12/18/17 18:04> Results - Labs CBC & Chem 7: 12/18/17 07:20 12/18/17 07:20 Laboratory Results - last 24 hr 12/16/17 12/18/17 12/18/17 12:35 07:20 07:20 WBC 10.6 RBC 4.30 Hgb 12.7 D Hct 38.5 MCV 89.6 MCH 29.5 MCHC 32.9 RDW 16.6 Plt Count 108 L MPV 9.4 Sodium 141 Potassium 3.7 Chloride 109 H Carbon Dioxide 22.2 Anion Gap 10 BUN 9 Creatinine 0.67 Estimated GFR Greater than 89 Random Glucose 81 Calcium 8.5 Phosphorus 1.6 L D Magnesium 2.0 Total Bilirubin 0.9 AST 20 ALT 70 H Alkaline Phosphatase 84 Total Protein 6.0 L Albumin 2.1 L Lipase 534 H IgG Total 967 IgG1 509 IgG2 313 IgG3 40 IgG4 55.5 - Imaging Impressions Chest X-Ray 12/18/17 06:00 CONCLUSION: Right lung base opacity is present may be due to a combination of consolidation and or pleural effusion and left lung base consolidation not present previously. <Chary Jarquin - Last Filed: 12/18/17 11:08> - Labs CBC & Chem 7: 12/18/17 07:20 12/18/17 07:20 Laboratory Results - last 24 hr 12/16/17 12/16/17 12/18/17 12:35 12:35 07:20 WBC 10.6 RBC 4.30 Hgb 12.7 D Hct 38.5 MCV 89.6 MCH 29.5 MCHC 32.9 RDW 16.6 Plt Count 108 L MPV 9.4 Puncture Site Patient Temperature O2 Saturation ABG pH ABG pCO2 ABG pO2 ABG HCO3 ABG O2 Content ABG Base Excess ABG Methemoglobin Jayden Test Hemoglobin Carboxyhemoglobin O2 Delivery Device Liter Flow Critical Value Sodium Potassium Chloride Carbon Dioxide Anion Gap BUN Creatinine Estimated GFR POC Glucose Random Glucose Calcium Phosphorus Magnesium Total Bilirubin AST ALT Alkaline Phosphatase Total Protein Albumin Lipase IgG Total 967 IgG1 509 IgG2 313 IgG3 40 IgG4 55.5 RYLAN Screen Neg 12/18/17 12/18/17 12/18/17 07:20 13:17 Unknown WBC RBC Hgb Hct MCV MCH MCHC RDW Plt Count MPV Puncture Site Left radial Patient Temperature 98.6 O2 Saturation 88 L* ABG pH 7.41 ABG pCO2 35 L ABG pO2 60 L ABG HCO3 22 ABG O2 Content 15.9 ABG Base Excess -2.2 L ABG Methemoglobin 1.6 Jayden Test + Hemoglobin 12.8 Carboxyhemoglobin 1.2 O2 Delivery Device Nasal cannula Liter Flow 4.00 Critical Value Yes Sodium 141 Potassium 3.7 Chloride 109 H Carbon Dioxide 22.2 Anion Gap 10 BUN 9 Creatinine 0.67 Estimated GFR Greater than 89 POC Glucose 83 Random Glucose 81 Calcium 8.5 Phosphorus 1.6 L D Magnesium 2.0 Total Bilirubin 0.9 AST 20 ALT 70 H Alkaline Phosphatase 84 Total Protein 6.0 L Albumin 2.1 L Lipase 534 H IgG Total IgG1 IgG2 IgG3 IgG4 RYLAN Screen - Imaging Impressions Chest X-Ray 12/18/17 06:00 CONCLUSION: Right lung base opacity is present may be due to a combination of consolidation and or pleural effusion and left lung base consolidation not present previously. <Mile Gomez - Last Filed: 12/18/17 18:04> Assessment and Plan (1) Pancreatitis Status: Acute Code(s): K85.90 - Acute pancreatitis without necrosis or infection, unspecified - Plan Assessment: - Acute pancreatitis with elevated LFTs [id number] AST-341 ALT-272 Alk phos-[address] abdomen and pelvis W IV contrast --> Ct findings characteristic of an acute pancreatitis with peripancreatic inflammatory changes Pt complaining of epigastric pain that came on suddenly last night, described as burning, constant. Associated nausea and vomiting, denies hematemesis and coffee ground emesis. Denies history of pancreatitis. Unsure of family history of pancreatic issues , states his mother has 1/3 of her stomach. Denies ETOH, illicit drug use. Only new medication is Atrovent, denies any other OTC or prescription medications. Denies previous cholecystectomy. Denies history of liver issues, tattoos, history of IV drug use, high risk sexual behaviors. (12/17) Able to obtain more history today, pt was vomiting and minimally answering questions yesterday. Does report occasional ETOH, states had half a beer last Saturday and prior to that a lola two months ago. She is concerned that she takes multiple pain medications and this could be a factor, (Tizanidine, Percocet, Morphine, Opana, Cymbalta, Xarelto). Reviewed these medications and do not see any as causative factor for pancreatitis. So far MRCP negative for CBD stones (although possibility of passed a stone or sludge), US negative for cholelithiasis. Lipid panel WNL. Lipase improved significantly today and LFTs trending down. Hepatitis panel negative. Labs pending to rule out auto-immune pancreatitis * Discussed with Dr. Dixon (12/18) Pt still symptomatic today with severe abdominal pain and nausea, will not advance diet at this time. Improvement in lipase. ABG pending. RYLAN pending but IgG 4 WNL. Pain control difficult because pt is on a significant amount of pain medication on a chronic basis Plan: ABG RYLAN NPO OK for ice chips IVF Pain control Monitor electrolytes Antiemetics PRN Pepcid Further recommendations based on clinical course and results of above Pt has been seen and examined by myself and Dr. Gomez and this note is written on his behalf <Chary Jarquin - Last Filed: 12/18/17 11:08> (1) Pancreatitis Status: Acute Code(s): K85.90 - Acute pancreatitis without necrosis or infection, unspecified - Plan Patient was seen and examined, agree with above note, minimal improvement since yesterday, [place] criteria was reviewed, we will not advance diet at this time, need to consider CT scan repeat in 1-2 days to see if there is any progression of her pancreatitis meanwhile we will continue supportive care with hydration pain control and monitoring electrolytes <Mile Gomez - Last Filed: 12/18/17 18:04> <Chary Jarquin - Last Filed: 12/18/17 11:08> (1) Pancreatitis Qualifiers: Chronicity: acute Pancreatitis type: unspecified pancreatitis type Acute pancreatitis complication: unspecified Qualified Code(s): K85.90 - Acute pancreatitis without necrosis or infection, unspecified <Mile Gomez - Last Filed: 12/18/17 18:04> (1) Pancreatitis Qualifiers: Chronicity: acute Pancreatitis type: unspecified pancreatitis type Acute pancreatitis complication: unspecified Qualified Code(s): K85.90 - Acute pancreatitis without necrosis or infection, unspecified
[2017-12-18 11:39] LABS: ABG Base Excess -2.2 mmol/L (-2-2); ABG PCO2 35 mmHg (38-42); ABG PO2 60 mmHG (61-120)
[2017-12-18] MEDS: Thiamine Inj 500 MG in Sodium Chlor 0.9% Inj 500 ML IV.SIG SCH (12:53)
--- NOTE | 2017-12-18 14:49 | P.PNIM ---
Subjective Interval history: One something to eat. States still with abdominal pain mostly in the middle and right area. States that she did not drink alcohol on the slips of beer before coming in. Physical Exam Vital signs: Vital Signs 12/17/17 15:00 12/17/17 15:32 12/17/17 19:00 Temperature 98.5 F 100.7 F H Pulse Rate 93 H 92 H 97 H Respiratory Rate 23 18 20 Blood Pressure 110/55 L 97/50 L Pulse Oximetry 93 L 94 L 97 12/17/17 19:38 12/17/17 20:00 12/17/17 23:00 Temperature 99.8 F H Pulse Rate 95 H 85 82 Respiratory Rate 22 20 Blood Pressure 97/53 L Pulse Oximetry 94 L 92 L 12/18/17 03:00 12/18/17 03:33 12/18/17 07:00 Temperature 99.5 F 99.7 F H Pulse Rate 77 84 Respiratory Rate 20 16 20 Blood Pressure 105/62 110/61 Pulse Oximetry 90 L 93 L 12/18/17 08:00 12/18/17 09:00 12/18/17 09:06 Temperature Pulse Rate 88 82 Respiratory Rate Blood Pressure Pulse Oximetry 93 L 12/18/17 10:00 12/18/17 11:00 12/18/17 12:00 Temperature 98.5 F Pulse Rate 84 80 90 Respiratory Rate 16 Blood Pressure 111/65 Pulse Oximetry 94 L 12/18/17 13:00 12/18/17 14:08 Temperature Pulse Rate 80 Respiratory Rate 16 Blood Pressure Pulse Oximetry Intake & Output 12/17/17 12/18/17 12/18/17 18:59 06:59 18:59 Intake Total 1989.2 / 1989.2 550 / 550 560.2 / 560.2 Output Total 200 / 200 850 / 850 Balance 1790.2 / 1790.2 -300 / -300 560.2 / 560.2 Weight 116 kg Intake: IV 1840.2 / 1840.2 300 / 300 560.2 / 560.2 LR 1000 mL Inj 1,000 ML @ 125 720 / 720 0 / 0 mls/hr IV.CONT .Q8H [facility] Rx#: [id number] MVI-12 Inj 10 ML Folvite Inj 1 510.2 / 510.2 510.2 / 510.2 MG In NS Inj 500 ML @ 125 mls/ hr IV.SIG DAILY [facility] Rx#: [id number] Zosyn 3.375 GM Premix 50 ML @ 100 / 100 50 / 50 50 / 50 100 mls/hr IV.SIG Q8H [facility] Rx#: [id number] Thiamine Inj 500 MG In NS Inj 510 / 510 250 / 250 250 ML @ 62.5 mls/hr IV.SIG Q8H [facility] Rx#:[id number] Oral 150 / 150 250 / 250 Output: Urine 200 / 200 850 / 850 Other: # Voids 2 Results - Labs CBC & Chem 7: 12/18/17 07:20 12/18/17 07:20 Laboratory Results - last 24 hr 12/16/17 12/18/17 12/18/17 12:35 07:20 07:20 WBC 10.6 RBC 4.30 Hgb 12.7 D Hct 38.5 MCV 89.6 MCH 29.5 MCHC 32.9 RDW 16.6 Plt Count 108 L MPV 9.4 Puncture Site Patient Temperature O2 Saturation ABG pH ABG pCO2 ABG pO2 ABG HCO3 ABG O2 Content ABG Base Excess ABG Methemoglobin Jayden Test Hemoglobin Carboxyhemoglobin O2 Delivery Device Liter Flow Critical Value Sodium 141 Potassium 3.7 Chloride 109 H Carbon Dioxide 22.2 Anion Gap 10 BUN 9 Creatinine 0.67 Estimated GFR Greater than 89 POC Glucose Random Glucose 81 Calcium 8.5 Phosphorus 1.6 L D Magnesium 2.0 Total Bilirubin 0.9 AST 20 ALT 70 H Alkaline Phosphatase 84 Total Protein 6.0 L Albumin 2.1 L Lipase 534 H IgG Total 967 IgG1 509 IgG2 313 IgG3 40 IgG4 55.5 12/18/17 12/18/17 13:17 Unknown WBC RBC Hgb Hct MCV MCH MCHC RDW Plt Count MPV Puncture Site Left radial Patient Temperature 98.6 O2 Saturation 88 L* ABG pH 7.41 ABG pCO2 35 L ABG pO2 60 L ABG HCO3 22 ABG O2 Content 15.9 ABG Base Excess -2.2 L ABG Methemoglobin 1.6 Jayden Test + Hemoglobin 12.8 Carboxyhemoglobin 1.2 O2 Delivery Device Nasal cannula Liter Flow 4.00 Critical Value Yes Sodium Potassium Chloride Carbon Dioxide Anion Gap BUN Creatinine Estimated GFR POC Glucose 83 Random Glucose Calcium Phosphorus Magnesium Total Bilirubin AST ALT Alkaline Phosphatase Total Protein Albumin Lipase IgG Total IgG1 IgG2 IgG3 IgG4 - Imaging Impressions Chest X-Ray 12/18/17 06:00 CONCLUSION: Right lung base opacity is present may be due to a combination of consolidation and or pleural effusion and left lung base consolidation not present previously. Assessment and Plan - Plan Assessment: 57-year-old female with risk factors including tobacco use, family history who presents with severe acute pancreatitis. By [place]'s criteria on admission, she has 4 points, suggestive of worse outcomes. Active Problems: Severe pain secondary to acute pancreatitis Acute Severe pancreatitis Acute kidney injury Acute liver injury clinically improving pancreatitis - trend LFTs - trend CMP. ABG reviewed for [place]'s criteria 48 hours post admission with a score of 2 with points given for less than 60 CO2 and decrease in hemoglobin greater than 10%. - ivf resuscitation - dilaudid iv for pain - strict NPO, until cleared by GI for ice chips and clear liquids - GI consultation and appreciate recommendations - jeronimo can be discontinued at this time. - RUQ ultrasound-shows gallbladder polyp - empiric coverage with zosyn until cultures are negative - SCDs, SQH, PPI -Patient admits to heavy drinking before several years ago, still drinks but she claims socially. MRCP unremarkable except for gallbladder polyp. Acute pancreatitis likely idiopathic. DVT prophylaxisbilateral SCDs Discharge Planning: Home when stable
[2017-12-19] MEDS: HYDROmorphone PF Inj 2 MG/ML Vial IV.PUSH PRN ×5 (00:04→15:02)
[2017-12-19] MEDS: Heparin - SQ 10,000 UNITS/ML Vial SQ SCH ×3 (00:06→17:15)
[2017-12-19] MEDS: Famotidine PF Inj 20 MG/2 ML Vial IV.PUSH SCH ×3 (00:25→20:46)
[2017-12-19] MEDS: Piperacil/Tazo 3.375 GM Premix 50 ML IV.SIG SCH ×3 (06:22→22:31)
[2017-12-19 08:02] LABS: Baso % (Auto) 0.3 % (0.0-2.0); Eos # (Auto) 0.1 th/mm3 (0.0-0.4); Eos % (Auto) 0.5 % (0.0-4.0); Hematocrit 36.7 % (35.0-46.0); Hemoglobin 12.3 gm/dL (11.6-15.3); Lymph # (Auto) 0.5 th/mm3 (1.0-4.8); Lymph % (Auto) 4.9 % (9.0-44.0); Mean Corpuscular HGB Conc 33.4 % (32.0-36.0); Mean Corpuscular Hemoglobin 29.7 pg (27.0-34.0); Mean Corpuscular Volume 89.2 fL (80.0-100.0); Mono # (Auto) 0.5 th/mm3 (0.0-0.9); Neut # (Auto) 9.4 th/mm3 (1.8-7.7); Neut % (Auto) 89.3 % (16.0-70.0); Platelet Count 99 th/mm3 (150-450); Red Blood Count 4.12 mil/mm3 (4.00-5.30); Red Cell Distribution Width 15.9 % (11.6-17.2); White Blood Count 10.5 th/mm3 (4.0-11.0)
[2017-12-19 08:31] LABS: Alkaline Phosphatase 92 U/L (45-117); Phosphorus 2.3 mg/dL (2.5-4.9); Total Protein 6.3 g/dL (6.4-8.2)
[2017-12-19 08:43] LABS: Alanine Aminotransferase 50 U/L (10-53); Albumin 1.9 g/dL (3.4-5.0); Anion Gap 11 meq/L (5-15); Aspartate Aminotransferase 26 U/L (15-37); Blood Urea Nitrogen 6 mg/dL (7-18); Calcium 8.5 mg/dL (8.5-10.1); Carbon Dioxide 21.5 meq/L (21.0-32.0); Chloride 106 meq/L (98-107); Glomerular Filtration Rate Greater Than 89 mL/min (>89); Glucose,Random 61 mg/dL (74-106); Lipase 245 U/L (73-393); Sodium 138 meq/L (136-145)
[2017-12-19 08:46] LABS: Potassium 4.4 meq/L (3.5-5.1)
[2017-12-19 08:50] LABS: Lymphocytes 6 % (9-44); Monocytes 3 % (0-8); Platelet Morphology Normal (Normal)
[2017-12-19] MEDS: Thiamine Inj 500 MG in Sodium Chlor 0.9% Inj 500 ML IV.SIG SCH (09:24)
[2017-12-19] MEDS: Chlorhexidine Gluconate 2% 1 Pack (2 Cloths) TOPICAL SCH (09:28)
[2017-12-19] MEDS: Multivitamin Inj 10 ML, Folic Acid Inj 1 MG in Sodium Chlor 0.9% Inj 500 ML IV.SIG SCH (11:53)
--- NOTE | 2017-12-19 13:21 | P.PNGI ---
Subjective Interval history: Pt complaining of continued abdominal pain, rates it a 9/10. Also complaining of shortness of breath states this has been going on for a long time, prior to hospital admission. <Chary Jarquin - Last Filed: 12/19/17 13:18> Physical Exam Vital signs: Vital Signs 12/18/17 14:08 12/18/17 15:00 12/18/17 19:20 Temperature 98.3 F Pulse Rate 80 Respiratory Rate 16 16 Blood Pressure 118/70 Pulse Oximetry 95 93 L 12/18/17 20:00 12/18/17 23:00 12/19/17 07:00 Temperature 100.3 F H 99.8 F H Pulse Rate 85 89 Respiratory Rate 20 18 12 Blood Pressure 142/60 H 120/64 Pulse Oximetry 90 L 93 L 12/19/17 08:41 12/19/17 11:00 12/19/17 11:11 Temperature 100.0 F H Pulse Rate 75 Respiratory Rate 16 12 Blood Pressure 119/63 Pulse Oximetry 94 L 93 L 12/19/17 12:48 12/19/17 13:03 Temperature 98.5 F Pulse Rate 77 Respiratory Rate 16 12 Blood Pressure 110/55 L Pulse Oximetry 91 L Intake & Output 12/18/17 12/19/17 12/19/17 18:59 06:59 18:59 Intake Total 710.2 / 710.2 1050 / 1050 1080 / 1080 Output Total 1825 / 1825 Balance -1114.8 / -1114.8 1050 / 1050 1080 / 1080 Intake: IV 610.2 / 610.2 1050 / 1050 1080 / 1080 LR 1000 mL Inj 1,000 ML @ 125 1000 / 1000 1000 / 1000 mls/hr IV.CONT .Q8H [facility] Rx#: [id number] MVI-12 Inj 10 ML Folvite Inj 1 510.2 / 510.2 MG In NS Inj 500 ML @ 125 mls/ hr IV.SIG DAILY [facility] Rx#: [id number] Zosyn 3.375 GM Premix 50 ML @ 100 / 100 50 / 50 100 mls/hr IV.SIG Q8H [facility] Rx#: [id number] Thiamine Inj 500 MG In NS Inj 80 / 80 500 ML @ 21 mls/hr IV.SIG Q24H [facility] Rx#:[id number] Oral 100 / 100 Output: Urine 1825 / 1825 Other: Date of Last Bowel Movement 12/16/17 - Constitutional no acute distress - Routine HEENT Exam Head: Present: normocephalic, atraumatic - Routine Abdominal Exam Present: soft, normoactive bowel sounds, tenderness. Absent: distended - Routine Skin Exam Present: dry, warm - Routine Neurological Exam Present: alert, oriented X3 <Chary Jarquin - Last Filed: 12/19/17 13:18> Vital signs: Vital Signs 12/18/17 19:20 12/18/17 20:00 12/18/17 23:00 Temperature 100.3 F H 99.8 F H Pulse Rate 85 89 Respiratory Rate 20 18 Blood Pressure 142/60 H 120/64 Pulse Oximetry 93 L 90 L 93 L 12/19/17 07:00 12/19/17 08:41 12/19/17 11:00 Temperature 100.0 F H Pulse Rate 75 Respiratory Rate 12 16 12 Blood Pressure 119/63 Pulse Oximetry 94 L 12/19/17 11:11 12/19/17 12:48 12/19/17 13:03 Temperature 98.5 F Pulse Rate 77 Respiratory Rate 16 12 Blood Pressure 110/55 L Pulse Oximetry 93 L 91 L 12/19/17 17:29 12/19/17 17:30 Temperature Pulse Rate 77 Respiratory Rate 16 Blood Pressure Pulse Oximetry 93 L Intake & Output 12/18/17 12/19/17 12/19/17 18:59 06:59 18:59 Intake Total 710.2 / 710.2 1100 / 1100 2320 / 2320 Output Total 1825 / 1825 Balance -1114.8 / -1114.8 1100 / 1100 2320 / 2320 Intake: IV 610.2 / 610.2 1100 / 1100 1840 / 1840 LR 1000 mL Inj 1,000 ML @ 125 1000 / 1000 1300 / 1300 mls/hr IV.CONT .Q8H [facility] Rx#: [id number] MVI-12 Inj 10 ML Folvite Inj 1 510.2 / 510.2 250 / 250 MG In NS Inj 500 ML @ 125 mls/ hr IV.SIG DAILY [facility] Rx#: [id number] Zosyn 3.375 GM Premix 50 ML @ 100 / 100 100 / 100 50 / 50 100 mls/hr IV.SIG Q8H [facility] Rx#: [id number] Thiamine Inj 500 MG In NS Inj 240 / 240 500 ML @ 21 mls/hr IV.SIG Q24H [facility] Rx#:[id number] Oral 100 / 100 480 / 480 Output: Urine 1825 / 1825 Other: Date of Last Bowel Movement 12/16/17 <Mile Gomez - Last Filed: 12/19/17 18:43> Results - Labs CBC & Chem 7: 12/19/17 06:52 12/19/17 06:52 Laboratory Results - last 24 hr 12/16/17 12/18/17 12/19/17 12:35 Unknown 06:52 WBC 10.5 RBC 4.12 Hgb 12.3 Hct 36.7 MCV 89.2 MCH 29.7 MCHC 33.4 RDW 15.9 Plt Count 99 L MPV 10.0 Prelim Diff (Auto) Slide review pending Neut % (Auto) 89.3 H Lymph % (Auto) 4.9 L [place] % (Auto) 5.0 Eos % (Auto) 0.5 Baso % (Auto) 0.3 Neut # (Auto) 9.4 H Lymph # (Auto) 0.5 L [place] # (Auto) 0.5 Eos # (Auto) 0.1 Baso # (Auto) 0.0 WBC Differential Manual diff final Seg Neuts % (Manual) 84 H Band Neuts % (Manual) 7 H Lymphocytes % (Manual) 6 L Monocytes % (Manual) 3 Abs Neuts (Manual) 9.6 H Differential Comment . Platelet Estimate Low L Platelet Morphology Normal Critical Value Yes Sodium Potassium Chloride Carbon Dioxide Anion Gap BUN Creatinine Estimated GFR Random Glucose Calcium Phosphorus Magnesium Total Bilirubin Direct Bilirubin AST ALT Alkaline Phosphatase Total Protein Albumin Lipase RYLAN Screen Neg 12/19/17 06:52 WBC RBC Hgb Hct MCV MCH MCHC RDW Plt Count MPV Prelim Diff (Auto) Neut % (Auto) Lymph % (Auto) [place] % (Auto) Eos % (Auto) Baso % (Auto) Neut # (Auto) Lymph # (Auto) [place] # (Auto) Eos # (Auto) Baso # (Auto) WBC Differential Seg Neuts % (Manual) Band Neuts % (Manual) Lymphocytes % (Manual) Monocytes % (Manual) Abs Neuts (Manual) Differential Comment Platelet Estimate Platelet Morphology Critical Value Sodium 138 Potassium 4.4 Chloride 106 Carbon Dioxide 21.5 Anion Gap 11 BUN 6 L Creatinine 0.57 Estimated GFR Greater than 89 Random Glucose 61 L Calcium 8.5 Phosphorus 2.3 L Magnesium 2.0 Total Bilirubin 1.0 Direct Bilirubin 0.1 AST 26 ALT 50 Alkaline Phosphatase 92 Total Protein 6.3 L Albumin 1.9 L Lipase 245 RYLAN Screen <Chary Jarquin - Last Filed: 12/19/17 13:18> - Labs CBC & Chem 7: 12/19/17 06:52 12/19/17 06:52 Laboratory Results - last 24 hr 12/19/17 12/19/17 06:52 06:52 WBC 10.5 RBC 4.12 Hgb 12.3 Hct 36.7 MCV 89.2 MCH 29.7 MCHC 33.4 RDW 15.9 Plt Count 99 L MPV 10.0 Prelim Diff (Auto) Slide review pending Neut % (Auto) 89.3 H Lymph % (Auto) 4.9 L [place] % (Auto) 5.0 Eos % (Auto) 0.5 Baso % (Auto) 0.3 Neut # (Auto) 9.4 H Lymph # (Auto) 0.5 L [place] # (Auto) 0.5 Eos # (Auto) 0.1 Baso # (Auto) 0.0 WBC Differential Manual diff final Seg Neuts % (Manual) 84 H Band Neuts % (Manual) 7 H Lymphocytes % (Manual) 6 L Monocytes % (Manual) 3 Abs Neuts (Manual) 9.6 H Differential Comment . Platelet Estimate Low L Platelet Morphology Normal Sodium 138 Potassium 4.4 Chloride 106 Carbon Dioxide 21.5 Anion Gap 11 BUN 6 L Creatinine 0.57 Estimated GFR Greater than 89 Random Glucose 61 L Calcium 8.5 Phosphorus 2.3 L Magnesium 2.0 Total Bilirubin 1.0 Direct Bilirubin 0.1 AST 26 ALT 50 Alkaline Phosphatase 92 Total Protein 6.3 L Albumin 1.9 L Lipase 245 - Imaging Impressions Venous Doppler Study 12/19/17 00:00 CONCLUSION: <RyanMile browne - Last Filed: 12/19/17 18:43> Assessment and Plan (1) Pancreatitis Status: Acute Code(s): K85.90 - Acute pancreatitis without necrosis or infection, unspecified - Plan Assessment: - Acute pancreatitis with elevated LFTs [id number] AST-341 ALT-272 Alk phos-[address] abdomen and pelvis W IV contrast --> Ct findings characteristic of an acute pancreatitis with peripancreatic inflammatory changes Pt complaining of epigastric pain that came on suddenly last night, described as burning, constant. Associated nausea and vomiting, denies hematemesis and coffee ground emesis. Denies history of pancreatitis. Unsure of family history of pancreatic issues , states his mother has 1/3 of her stomach. Denies ETOH, illicit drug use. Only new medication is Atrovent, denies any other OTC or prescription medications. Denies previous cholecystectomy. Denies history of liver issues, tattoos, history of IV drug use, high risk sexual behaviors. (12/17) Able to obtain more history today, pt was vomiting and minimally answering questions yesterday. Does report occasional ETOH, states had half a beer last Saturday and prior to that a lola two months ago. She is concerned that she takes multiple pain medications and this could be a factor, (Tizanidine, Percocet, Morphine, Opana, Cymbalta, Xarelto). Reviewed these medications and do not see any as causative factor for pancreatitis. So far MRCP negative for CBD stones (although possibility of passed a stone or sludge), US negative for cholelithiasis. Lipid panel WNL. Lipase improved significantly today and LFTs trending down. Hepatitis panel negative. Labs pending to rule out auto-immune pancreatitis * Discussed with Dr. Dixon (12/18) Pt still symptomatic today with severe abdominal pain and nausea, will not advance diet at this time. Improvement in lipase. ABG pending. RYLAN pending but IgG 4 WNL. Pain control difficult because pt is on a significant amount of pain medication on a chronic basis (12/19) Continued abdominal pain, rates it a 9/10. Lipase improving. Possibly start on clear liquids tomorrow depending on how she is feeling. If continued severe pain will consider Dobbhoff for feedings. Repeat CT tomorrow if no improvement. Pt also complaining of SOB, states it has been going on for a long time- will obtain pulmonology consult to further evaluate Plan: Continue NPO OK for ice chips Dobbhoff vs clear liquids tomorrow depending on symptoms IVF Pain control Monitor electrolytes Antiemetics PRN Pepcid Possible repeat CT tomorrow Pulmonology consult Further recommendations based on clinical course and results of above <Chary Jarquin - Last Filed: 12/19/17 13:18> (1) Pancreatitis Status: Acute Code(s): K85.90 - Acute pancreatitis without necrosis or infection, unspecified - Plan Patient was seen and examined, agree with above note, consider Dobbhoff for enteral feeding tomorrow, her abdominal pain slightly better, we will consider CT scan tomorrow <Mile Gomez - Last Filed: 12/19/17 18:43> <Chary Jarquin - Last Filed: 12/19/17 13:18> (1) Pancreatitis Qualifiers: Chronicity: acute Pancreatitis type: unspecified pancreatitis type Acute pancreatitis complication: unspecified Qualified Code(s): K85.90 - Acute pancreatitis without necrosis or infection, unspecified <Mile Gomez - Last Filed: 12/19/17 18:43> (1) Pancreatitis Qualifiers: Chronicity: acute Pancreatitis type: unspecified pancreatitis type Acute pancreatitis complication: unspecified Qualified Code(s): K85.90 - Acute pancreatitis without necrosis or infection, unspecified
[2017-12-19] MEDS ORDERED: Enoxaparin Inj 40 MG/0.4 ML Syringe SQ ONE (14:48)
[2017-12-19] MEDS ORDERED: Tiotropium Bromide 18 MCG/ACT Inhaler INH ONE (14:55)
--- NOTE | 2017-12-19 15:10 | P.PNIM ---
Subjective Interval history: Mrs. Carrington is having some improvement in her abdominal pain. She also reports a left lower extremity DVT for which she was on Xarelto for. This has not been followed up and she has been on Xarelto for 10 months. She also says that her respiratory status has been gradually worsening. She continues to smoke and is recommended not to smoke. She feels this may be related to a history of lung masses which she has not followed up with since January. She says between January 2017 and July 2017 she had an interval increase in these masses. Imaging does not appear to have been obtained here. Physical Exam Vital signs: Vital Signs 12/18/17 15:00 12/18/17 19:20 12/18/17 20:00 Temperature 98.3 F 100.3 F H Pulse Rate 80 85 Respiratory Rate 16 20 Blood Pressure 118/70 142/60 H Pulse Oximetry 95 93 L 90 L 12/18/17 23:00 12/19/17 07:00 12/19/17 08:41 Temperature 99.8 F H 100.0 F H Pulse Rate 89 75 Respiratory Rate 18 12 16 Blood Pressure 120/64 119/63 Pulse Oximetry 93 L 94 L 12/19/17 11:00 12/19/17 11:11 12/19/17 12:48 Temperature 98.5 F Pulse Rate 77 Respiratory Rate 12 16 Blood Pressure 110/55 L Pulse Oximetry 93 L 91 L 12/19/17 13:03 Temperature Pulse Rate Respiratory Rate 12 Blood Pressure Pulse Oximetry Intake & Output 12/18/17 12/19/17 12/19/17 18:59 06:59 18:59 Intake Total 710.2 / 710.2 1050 / 1050 1490 / 1490 Output Total 1825 / 1825 Balance -1114.8 / -1114.8 1050 / 1050 1490 / 1490 Intake: IV 610.2 / 610.2 1050 / 1050 1490 / 1490 LR 1000 mL Inj 1,000 ML @ 125 1000 / 1000 1000 / 1000 mls/hr IV.CONT .Q8H [facility] Rx#: [id number] MVI-12 Inj 10 ML Folvite Inj 1 510.2 / 510.2 250 / 250 MG In NS Inj 500 ML @ 125 mls/ hr IV.SIG DAILY [facility] Rx#: [id number] Zosyn 3.375 GM Premix 50 ML @ 100 / 100 50 / 50 100 mls/hr IV.SIG Q8H [facility] Rx#: [id number] Thiamine Inj 500 MG In NS Inj 240 / 240 500 ML @ 21 mls/hr IV.SIG Q24H [facility] Rx#:[id number] Oral 100 / 100 Output: Urine 1825 / 1825 Other: Date of Last Bowel Movement 12/16/17 Narrative: GENERAL: NAD, A&Ox3 HEAD: Normocephalic. NECK: Supple, trachea midline. No lymphadenopathy. EYES: No scleral icterus. No injection or drainage. CARDIOVASCULAR: Regular rate and rhythm without murmurs, gallops, or rubs. RESPIRATORY: Breath sounds equal bilaterally. No accessory muscle use. GASTROINTESTINAL: Abdomen soft, tender abdomen, nondistended. MUSCULOSKELETAL: No cyanosis, or edema. SKIN: Warm and dry. NEURO: No focal neurological deficits. Results - Labs CBC & Chem 7: 12/19/17 06:52 12/19/17 06:52 Laboratory Results - last 24 hr 12/16/17 12/19/17 12/19/17 12:35 06:52 06:52 WBC 10.5 RBC 4.12 Hgb 12.3 Hct 36.7 MCV 89.2 MCH 29.7 MCHC 33.4 RDW 15.9 Plt Count 99 L MPV 10.0 Prelim Diff (Auto) Slide review pending Neut % (Auto) 89.3 H Lymph % (Auto) 4.9 L [place] % (Auto) 5.0 Eos % (Auto) 0.5 Baso % (Auto) 0.3 Neut # (Auto) 9.4 H Lymph # (Auto) 0.5 L [place] # (Auto) 0.5 Eos # (Auto) 0.1 Baso # (Auto) 0.0 WBC Differential Manual diff final Seg Neuts % (Manual) 84 H Band Neuts % (Manual) 7 H Lymphocytes % (Manual) 6 L Monocytes % (Manual) 3 Abs Neuts (Manual) 9.6 H Differential Comment . Platelet Estimate Low L Platelet Morphology Normal Sodium 138 Potassium 4.4 Chloride 106 Carbon Dioxide 21.5 Anion Gap 11 BUN 6 L Creatinine 0.57 Estimated GFR Greater than 89 Random Glucose 61 L Calcium 8.5 Phosphorus 2.3 L Magnesium 2.0 Total Bilirubin 1.0 Direct Bilirubin 0.1 AST 26 ALT 50 Alkaline Phosphatase 92 Total Protein 6.3 L Albumin 1.9 L Lipase 245 RYLAN Screen Neg Assessment and Plan - Plan 57-year-old female admitted secondary to acute pancreatitis Abdominal pain Acute Severe pancreatitis Etiology may have been related to adrenaline effect from albuterol Albuterol continue to monitor lipase Advance diet Acute kidney injury Follow renal function Acute liver injury Continue to follow LFTs History of left leg DVT Obtain ultrasound, may we will discontinue Xarelto History of lung masses Pain CT of chest COPD Avoid albuterol due negative side effects Start Spiriva Inhaled corticosteroid DVT prophylaxis Heparin SCDs
--- NOTE | 2017-12-19 15:55 | MB ---
cc: Shireen Campbell MD DATE: 12/19/2017 REASON FOR CONSULTATION: Shortness of breath. HISTORY OF PRESENT ILLNESS: The patient is a 57-year-old female with a past medical history of deep venous thrombosis left lower extremity in 01/2017, was on Xarelto, probable COPD, active tobacco use, morbid obesity, who was admitted on 12/16/2017 for abdominal pain secondary to acute severe pancreatitis. The patient had elevated lipase level at 15,857. In addition, she had a very mild acute kidney injury with a creatinine level of 1.05 on admission, which is now resolved. She was started on broad spectrum antibiotics. The patient also had evidence of leukocytosis, which is now resolved. She had MRCP on 12/16/2017, which showed findings consistent with pancreatitis and no evidence of any cholelithiasis. During her hospital course, she had a chest x-ray on 12/18/2017, which showed a right lung base opacity in addition to left lung base consolidation. Pulmonary Medicine was consulted for shortness of breath. When seen, the patient on 3 liter oxygen with saturation ranges between 91-95%. The patient appears comfortable. She reports labored breathing with minimal exertion prior to admission. She also reports some chest discomfort, dry cough and nocturnal wheezing. She denies any heartburn or any constitutional symptoms. Patient remains an active smoker where she smokes a 1/2 pack of cigarettes per day for 20+ years. She denies any use of home oxygen; however, she uses Atrovent puffs at home. PAST MEDICAL HISTORY: Significant for emphysema of the lung, DVT left lower extremity in 01/2017 and obesity. SOCIAL HISTORY: Active smoker, where she smokes half a pack of cigarettes per day for about 20 years. Social drinker. FAMILY HISTORY: Noncontributory to present illness. ALLERGIES: SULFA. CURRENT MEDICATIONS: Include: 1. Albuterol. 2. Pepcid. 3. Haldol p.r.n. 4. Ativan p.r.n. 5. Zosyn. 6. Spiriva. 7. Heparin subcutaneous. REVIEW OF SYSTEMS: As per HPI. Rest of review of systems unremarkable. PHYSICAL EXAMINATION: GENERAL: A 57-year-old female lying in bed in no acute respiratory distress, appears comfortable. VITAL SIGNS: Temperature 98.5, pulse of 77, respiratory rate of 16, blood pressure 110/55, saturation 91-95% on 3 liter oxygen. HEENT: Atraumatic, normocephalic. Pupils are equal, round, reactive to light and accommodation. Extraocular muscles intact. Conjunctivae pink. Nonicteric sclerae. Oral mucosa within normal. NECK: Supple. No JVD, adenopathy or thyromegaly. Trachea in the midline. CARDIOVASCULAR: Regular rate and rhythm. Normal S1, S2. No murmurs, rubs or gallops noted. PULMONARY: Bilateral equal air entry diminished at the bases. ABDOMEN: Soft, nontender, nondistended. Positive bowel sounds. EXTREMITIES: No cyanosis or clubbing. Trace edema. NEUROLOGIC: No focal sensory deficit. LABORATORY DATA: Sodium 138, potassium 4.4, chloride 106, CO2 of 21, BUN 6, creatinine 0.57, glucose of 61. WBC 10.5, hemoglobin 12, hematocrit 36, platelet count 99. ABG from 12/18/2017 pH of 7.41, CO2 of 35, PaO2 of 60, bicarbonate 22, saturation 88%. RADIOGRAPHIC STUDIES: Chest x-ray from 12/18/2017 showed right lung base opacity in addition to left lung base consolidation. IMPRESSION: 1. Acute hypoxemic respiratory insufficiency. 2. Right lung opacity with left lung consolidation. 3. Chronic obstructive pulmonary disease. 4. Active tobacco use. 5. Deep vein thrombosis left lower extremity in 01/2017. 6. Morbid obesity. 7. Thrombocytopenia. 8. Acute pancreatitis, resolving. 9. Leukocytosis, trending down. RECOMMENDATIONS: 1. Continue to wean down oxygen as tolerated and maintain sats above 92%. 2. Bronchodilators. We will place on DuoNeb every 4 hours and continue with every 2 hours p.r.n. For shortness of breath in addition add Symbicort 160/4.5 two puffs every 12 hours. Continue with Spiriva and will discontinue Flovent. 3. We will only assess for home oxygen prior to discharge. 4. Continue with incentive spirometry every 1 hour while awake. 5. We will proceed with a CT scan of the chest to rule out PE and for further evaluation of recurrent pulmonary parenchyma. 6. Continue with broad-spectrum antibiotics. The patient is on Zosyn. Monitor for signs of infections, which include fever and WBC. We will obtain a sputum culture with Gram stain. 7. We will check a Doppler ultrasound of lower extremity to rule out a DVT given her prior history of DVT in 01/2017. 8. We will need a pulmonary function test when stable to rule out obstructive and restrictive lung disease related to her COPD and morbid obesity. 9. Also will need sleep study as an outpatient to rule out obstructive sleep apnea. 10. The patient is counseled regarding smoking cessation. 11. Gastrointestinal and deep venous thrombosis prophylaxis per primary team. She is currently on Pepcid and heparin subcutaneously respectively. 12. Further recommendations will be based on her hospital course. Thank you for this consultation and allowing up to participate in this patient's care. MD MICHELLE Shearer/CELESTE , 03:19 PM , 03:36 PM
--- NOTE | 2017-12-19 16:37 | P.DIET ---
Nutritional Evaluation Type of nutrition evaluation: initial (NPO Alert) Assessment Assessment: Pt admitted for acute pancreatitis. Pt is NPO x 3 days now. Reviewed EMR. Consult RD if needed.
[2017-12-19] MEDS: oxyCODONE/Acetaminophen 10/325 Tablet PO PRN ×2 (17:14→22:30)
--- NOTE | 2017-12-19 17:47 | US ---
EXAM DATE: 12/19/2017 5:43 PM EDT AGE/SEX: 57 years / Female INDICATIONS: Bilateral leg swelling. CLINICAL DATA: This is the patient's subsequent encounter. Patient reports that signs and symptoms h ave been present for 7 - 11 months and indicates a pain score of 4/10. MEDICAL/SURGICAL HISTORY: . Emphysema. None. COMPARISON: [facility] [place] LEG BILATERAL VENOUS DOPPLER, 10/11/2017. . TECHNIQUE: Venous ultrasound of both lower extremities was performed from the inguinal ligament to t he proximal calf. Real-time, color Doppler and spectral tracing, compression and augmentation techni ques were used. FINDINGS: Right Leg: Normal compression of the deep venous system from the inguinal region to the proximal niki f. No echogenic clot is seen. Normal response of the venous system to augmentation and respiration. Left Leg: Normal compression of the deep venous system from the inguinal region to the proximal calf . No echogenic clot is seen. Normal response of the venous system to augmentation and respiration. Other: There is a small oval fluid collection right popliteal fossa region measuring up to 2.4 x 2.9 x 0.9 cm. CONCLUSION: 1. No evidence of deep venous thrombosis. 2. Small Beth's cyst in the right popliteal fossa. Electronically signed by: Denzel Head MD 12/19/2017 5:46 PM EDT
--- NOTE | 2017-12-19 20:33 | CT ---
EXAM DATE: 12/19/2017 8:16 PM EDT AGE/SEX: 57 years / Female INDICATIONS: Shortness of breath. CLINICAL DATA: This is the patient's initial encounter. Patient reports that signs and symptoms have been present for 1 day and indicates a pain score of 0/10. MEDICAL/SURGICAL HISTORY: None. None. RADIATION DOSE: 22.99 CTDI (mGy) COMPARISON: No prior exams available for comparison. TECHNIQUE: Volumetric scanning was performed using a multi-row detector CT scanner during bolus infu sheba of 75 ml Omnipaque 350 (iohexol) nonionic water-soluble contrast as a single exam dose. The singh a was post processed with a variety of visualization algorithms including full volume maximum intensi ty projection and sliding thin slab reformation. Using automated exposure control and adjustment of t he mA and/or kV according to patient size, radiation dose was kept as low as reasonably achievable to obtain optimal diagnostic quality images. DICOM format image data is available electronically for r eview and comparison. FINDINGS: Pulmonary Arteries: There is some heterogeneity to the distal pulmonary artery opacification but a d efinite embolus is not clearly identified. The left and right pulmonary arteries are normal in diame ter. Lung: There is increased density seen at the lower lobes bilaterally being much more prominent on th e right. There is emphysematous change in the upper lungs. There are some vague density in the wrinkle chaser ior upper lobes bilaterally being more prominent on the right likely related to atelectasis. Effusion: There is a mild right pleural effusion. Mediastinum: No evidence of mediastinal or hilar adenopathy. Other: The axilla is unremarkable. 1. No pulmonary embolus is seen. 2. Bibasilar areas of consolidation or atelectasis being worse on the right. There is a mild right p leural effusion. Electronically signed by: Kristofer Child MD 12/19/2017 8:32 PM EDT
[2017-12-19] MEDS: Morphine Sulfate 30 MG SR Tablet PO SCH (20:44)
[2017-12-19] MEDS: Budesonide-Formoterol 160/4.5 MCG 6 GM Inhaler INH SCH (23:20)
[2017-12-20] MEDS: Heparin - SQ 10,000 UNITS/ML Vial SQ SCH ×3 (01:49→16:22)
[2017-12-20] MEDS: HYDROmorphone PF Inj 2 MG/ML Vial IV.PUSH PRN ×4 (01:50→23:59)
[2017-12-20] MEDS: Piperacil/Tazo 3.375 GM Premix 50 ML IV.SIG SCH ×2 (06:15→14:17)
[2017-12-20] MEDS: Chlorhexidine Gluconate 2% 1 Pack (2 Cloths) TOPICAL SCH (07:23)
[2017-12-20 07:36] LABS: Baso % (Auto) 0.3 % (0.0-2.0); Eos % (Auto) 0.4 % (0.0-4.0); Hematocrit 37.1 % (35.0-46.0); Hemoglobin 12.4 gm/dL (11.6-15.3); Lymph # (Auto) 0.6 th/mm3 (1.0-4.8); Lymph % (Auto) 5.6 % (9.0-44.0); Mean Corpuscular HGB Conc 33.4 % (32.0-36.0); Mean Corpuscular Hemoglobin 29.3 pg (27.0-34.0); Mean Corpuscular Volume 87.9 fL (80.0-100.0); Mono # (Auto) 0.9 th/mm3 (0.0-0.9); Mono % (Auto) 7.6 % (0.0-8.0); Neut # (Auto) 9.9 th/mm3 (1.8-7.7); Neut % (Auto) 86.1 % (16.0-70.0); Platelet Count 130 th/mm3 (150-450); Red Blood Count 4.22 mil/mm3 (4.00-5.30); Red Cell Distribution Width 15.5 % (11.6-17.2); White Blood Count 11.5 th/mm3 (4.0-11.0)
[2017-12-20 08:15] LABS: Alanine Aminotransferase 42 U/L (10-53); Alkaline Phosphatase 154 U/L (45-117); Anion Gap 11 meq/L (5-15); Aspartate Aminotransferase 16 U/L (15-37); Blood Urea Nitrogen 6 mg/dL (7-18); Calcium 8.4 mg/dL (8.5-10.1); Carbon Dioxide 25.5 meq/L (21.0-32.0); Chloride 105 meq/L (98-107); Glomerular Filtration Rate Greater Than 89 mL/min (>89); Glucose,Random 107 mg/dL (74-106); Lipase 116 U/L (73-393); Magnesium 2.1 mg/dL (1.5-2.5); Phosphorus 3.5 mg/dL (2.5-4.9); Potassium 3.1 meq/L (3.5-5.1); Sodium 141 meq/L (136-145); Total Protein 6.5 g/dL (6.4-8.2)
[2017-12-20] MEDS ORDERED: Enoxaparin Inj 40 MG/0.4 ML Syringe SQ SCH (09:00)
[2017-12-20] MEDS: Morphine Sulfate 30 MG SR Tablet PO SCH ×2 (09:43→21:17)
[2017-12-20] MEDS: Famotidine PF Inj 20 MG/2 ML Vial IV.PUSH SCH ×2 (09:44→21:17)
[2017-12-20] MEDS: Tiotropium Bromide 18 MCG/ACT Inhaler INH SCH (09:44)
[2017-12-20] MEDS: Budesonide-Formoterol 160/4.5 MCG 6 GM Inhaler INH SCH ×2 (09:46→21:18)
--- NOTE | 2017-12-20 10:50 | P.PNPL ---
Subjective Interval history: Patient is on 2L oxygen with good elsy. Afebrile. CTA chest yesterday showed no evidence of PE and Doppler US LE negative for DVT. Afebrile. Physical Exam Vital signs: Vital Signs 12/19/17 11:00 12/19/17 11:11 12/19/17 12:48 Temperature 98.5 F Pulse Rate 77 Respiratory Rate 12 16 Blood Pressure 110/55 L Pulse Oximetry 93 L 91 L 12/19/17 13:03 12/19/17 17:29 12/19/17 17:30 Temperature Pulse Rate 77 Respiratory Rate 12 16 Blood Pressure Pulse Oximetry 93 L 12/19/17 20:00 12/19/17 20:28 12/19/17 23:00 Temperature 99.6 F Pulse Rate 82 80 Respiratory Rate 18 18 16 Blood Pressure 112/57 L Pulse Oximetry 94 L 12/19/17 23:14 12/20/17 04:00 12/20/17 07:22 Temperature 98.5 F Pulse Rate 74 79 73 Respiratory Rate 18 18 16 Blood Pressure 117/62 Pulse Oximetry 93 L 12/20/17 07:31 12/20/17 10:05 Temperature 98.5 F Pulse Rate 85 Respiratory Rate 18 Blood Pressure 104/56 L Pulse Oximetry 92 L 93 L Intake & Output 12/19/17 12/20/17 12/20/17 18:59 06:59 18:59 Intake Total 2320 / 2320 50 / 50 1550 / 1550 Balance 2320 / 2320 50 / 50 1550 / 1550 Weight 117.2 kg Intake: IV 1840 / 1840 50 / 50 1550 / 1550 LR 1000 mL Inj 1,000 ML @ 125 1300 / 1300 1500 / 1500 mls/hr IV.CONT .Q8H [facility] Rx#: [id number] MVI-12 Inj 10 ML Folvite Inj 1 250 / 250 MG In NS Inj 500 ML @ 125 mls/ hr IV.SIG DAILY [facility] Rx#: [id number] Zosyn 3.375 GM Premix 50 ML @ 50 / 50 50 / 50 50 / 50 100 mls/hr IV.SIG Q8H [facility] Rx#: [id number] Thiamine Inj 500 MG In NS Inj 240 / 240 500 ML @ 21 mls/hr IV.SIG Q24H [facility] Rx#:[id number] Oral 480 / 480 Other: # Voids 1 Date of Last Bowel Movement 12/16/17 12/16/17 - Constitutional no acute distress - Routine HEENT Exam Head: Present: normocephalic, atraumatic Eye: Present: EOMI, PERRL, conjunctivae pink ENT: Present: mucous membranes moist, oropharynx clear - Routine Neck Exam Present: supple, full ROM, trachea midline - Routine Respiratory Exam Present: decreased breath sounds Comments: B/L equal air entry. No wheezing. - Routine Cardiovascular Exam Present: RRR, S1, S2 - Routine Abdominal Exam Present: soft, normoactive bowel sounds - Routine Extremities Exam Present: full ROM, pulses intact - Routine Skin Exam Present: intact - Routine Neurological Exam Present: alert, oriented X3, CN II-XII intact, normal speech - Detailed Neurological Exam: Coma Scale Verbal Response: Oriented - Routine Psychiatric Exam Present: normal affect Assessment and Plan - Plan 1. Acute hypoxemic respiratory insufficiency. 2. Right lung opacity with left lung consolidation. 3. Chronic obstructive pulmonary disease. 4. Active tobacco use. 5. Deep vein thrombosis left lower extremity in 01/2017. 6. Morbid obesity. 7. Thrombocytopenia. 8. Acute pancreatitis, resolving. 9. Leukocytosis, trending down. Plan Continue with oxygen and maintain sats above >92%. Bronchodilators( DuoNeb, Symbicort 160/4.5, Spiriva ) Assess for home oxygen prior to discharge. Continue with incentive spirometry every 1 hour while awake. CTA chest showed no evidence of PE, atelectasis. Continue with abx(Zosyn). Monitor for signs of infections( fever and WBC). Doppler US LE negative for DVT on 12/19 PFT/Sleep study as outpatient Patient is counseled regarding smoking cessation. GI and DVT prophylaxis- on Pepcid and heparin subcutaneously respectively. Discussed with Dr. Villalpando
--- NOTE | 2017-12-20 11:27 | P.PNIM ---
Subjective Interval history: Patient's primary complaint today is pain. She has a history of DVT but imaging shows no DVT so at discharge she will not need continuation of her Xarelto. Chest imaging showed no evidence of PE or pulmonary masses. She likely has COPD at baseline as she says she has been diagnosed with this in the past. Pulmonary function testing as an outpatient has been recommended by pulmonology. This point her pain is prohibiting her from feeling that she can ambulate well. She also says that she has not been eating much with her meals and only drinking. She remained on IV fluids overnight. Pancreatic enzymes continue to improve. Physical Exam Vital signs: Vital Signs 12/19/17 12:48 12/19/17 13:03 12/19/17 17:29 Temperature 98.5 F Pulse Rate 77 77 Respiratory Rate 16 12 16 Blood Pressure 110/55 L Pulse Oximetry 91 L 12/19/17 17:30 12/19/17 20:00 12/19/17 20:28 Temperature 99.6 F Pulse Rate 82 80 Respiratory Rate 18 18 Blood Pressure 112/57 L Pulse Oximetry 93 L 94 L 12/19/17 23:00 12/19/17 23:14 12/20/17 04:00 Temperature 98.5 F Pulse Rate 74 79 Respiratory Rate 16 18 18 Blood Pressure 117/62 Pulse Oximetry 93 L 12/20/17 07:22 12/20/17 07:31 12/20/17 10:05 Temperature 98.5 F Pulse Rate 73 85 Respiratory Rate 16 18 Blood Pressure 104/56 L Pulse Oximetry 92 L 93 L Intake & Output 12/19/17 12/20/17 12/20/17 18:59 06:59 18:59 Intake Total 2320 / 2320 50 / 50 1550 / 1550 Balance 2320 / 2320 50 / 50 1550 / 1550 Weight 117.2 kg Intake: IV 1840 / 1840 50 / 50 1550 / 1550 LR 1000 mL Inj 1,000 ML @ 125 1300 / 1300 1500 / 1500 mls/hr IV.CONT .Q8H [facility] Rx#: [id number] MVI-12 Inj 10 ML Folvite Inj 1 250 / 250 MG In NS Inj 500 ML @ 125 mls/ hr IV.SIG DAILY [facility] Rx#: [id number] Zosyn 3.375 GM Premix 50 ML @ 50 / 50 50 / 50 50 / 50 100 mls/hr IV.SIG Q8H [facility] Rx#: [id number] Thiamine Inj 500 MG In NS Inj 240 / 240 500 ML @ 21 mls/hr IV.SIG Q24H [facility] Rx#:[id number] Oral 480 / 480 Other: # Voids 1 Date of Last Bowel Movement 12/16/17 12/16/17 Narrative: GENERAL: NAD, A&Ox3 HEAD: Normocephalic. NECK: Supple, trachea midline. No lymphadenopathy. EYES: No scleral icterus. No injection or drainage. CARDIOVASCULAR: Regular rate and rhythm without murmurs, gallops, or rubs. RESPIRATORY: Breath sounds equal bilaterally. No accessory muscle use. GASTROINTESTINAL: Abdomen soft, tender abdomen, nondistended. MUSCULOSKELETAL: No cyanosis, or edema. SKIN: Warm and dry. NEURO: No focal neurological deficits. Results - Labs CBC & Chem 7: 12/20/17 06:22 12/20/17 06:22 Laboratory Results - last 24 hr 12/20/17 12/20/17 06:22 06:22 WBC 11.5 H RBC 4.22 Hgb 12.4 Hct 37.1 MCV 87.9 MCH 29.3 MCHC 33.4 RDW 15.5 Plt Count 130 L D MPV 10.0 Neut % (Auto) 86.1 H Lymph % (Auto) 5.6 L [place] % (Auto) 7.6 Eos % (Auto) 0.4 Baso % (Auto) 0.3 Neut # (Auto) 9.9 H Lymph # (Auto) 0.6 L [place] # (Auto) 0.9 Eos # (Auto) 0.0 Baso # (Auto) 0.0 WBC Differential . Differential Comment Auto diff final Sodium 141 Potassium 3.1 L D Chloride 105 Carbon Dioxide 25.5 Anion Gap 11 BUN 6 L Creatinine 0.63 Estimated GFR Greater than 89 Random Glucose 107 H Calcium 8.4 L Phosphorus 3.5 D Magnesium 2.1 Total Bilirubin 0.6 AST 16 ALT 42 Alkaline Phosphatase 154 H Total Protein 6.5 Albumin 2.0 L Lipase 116 Microbiology 12/19/17 21:00 Sputum - Expectorated Sputum Gram Stain - Final - Imaging Impressions Chest CTA 12/19/17 00:00 CONCLUSION: Venous Doppler Study 12/19/17 00:00 CONCLUSION: 1. No evidence of deep venous thrombosis. 2. Small Beth's cyst in the right popliteal fossa. Assessment and Plan - Plan 57-year-old female admitted secondary to acute pancreatitis Start physical therapy to determine patient's ambulation capacity. Transition off of IV fluids. Continue to monitor lipase level. Patient is encouraged to attempt to take meals by mouth to determine if she can tolerate p.o. intake without recurrence of her pancreatitis. Abdominal pain Acute Severe pancreatitis Etiology may have been related to adrenaline effect from albuterol Albuterol continue to monitor lipase Advance diet Acute kidney injury Follow renal function Acute liver injury Continue to follow LFTs History of left leg DVT Obtain ultrasound, may we will discontinue Xarelto History of lung masses Pain CT of chest COPD Avoid albuterol due negative side effects Continue Spiriva Continue inhaled corticosteroid DVT prophylaxis Heparin SCDs
[2017-12-20] MEDS: oxyCODONE/Acetaminophen 10/325 Tablet PO PRN (15:08)
[2017-12-20] MEDS ORDERED: Aspirin 325 MG Tablet PO ONE (15:27)
--- NOTE | 2017-12-20 17:08 | P.PNGI ---
Subjective Interval history: Pt continue to have abd pain, worse with eating, was started on diet but pt is eating very little, having nausea, no vomiting. <AzaliaMaira sheridanisisbrigida - Last Filed: 12/20/17 16:55> Interval history: Patient still having abdominal pain, she ate today a little bit but she had nausea vomiting, she is to continue to try clear liquid, overall seems to be doing better, we will monitor her labs and her progress <Mile Gomez - Last Filed: 12/20/17 18:24> Physical Exam Vital signs: Vital Signs 12/19/17 17:29 12/19/17 17:30 12/19/17 20:00 Temperature 99.6 F Pulse Rate 77 82 Respiratory Rate 16 18 Blood Pressure 112/57 L Pulse Oximetry 93 L 94 L 12/19/17 20:28 12/19/17 23:00 12/19/17 23:14 Temperature Pulse Rate 80 74 Respiratory Rate 18 16 18 Blood Pressure Pulse Oximetry 12/20/17 04:00 12/20/17 07:22 12/20/17 07:31 Temperature 98.5 F Pulse Rate 79 73 Respiratory Rate 18 16 Blood Pressure 117/62 Pulse Oximetry 93 L 92 L 12/20/17 10:05 12/20/17 11:00 12/20/17 11:28 Temperature 98.5 F 99.3 F Pulse Rate 85 86 73 Respiratory Rate 18 12 18 Blood Pressure 104/56 L 107/55 L Pulse Oximetry 93 L 90 L 12/20/17 15:00 12/20/17 16:42 12/20/17 16:43 Temperature 98.9 F Pulse Rate 74 69 Respiratory Rate 18 20 Blood Pressure 95/53 L Pulse Oximetry 93 L 93 L Intake & Output 12/19/17 12/20/17 12/20/17 18:59 06:59 18:59 Intake Total 2320 / 2320 50 / 50 1840 / 1840 Balance 2320 / 2320 50 / 50 1840 / 1840 Weight 117.2 kg Intake: IV 1840 / 1840 50 / 50 1600 / 1600 LR 1000 mL Inj 1,000 ML @ 125 1300 / 1300 1500 / 1500 mls/hr IV.CONT .Q8H [facility] Rx#: [id number] MVI-12 Inj 10 ML Folvite Inj 1 250 / 250 MG In NS Inj 500 ML @ 125 mls/ hr IV.SIG DAILY [facility] Rx#: [id number] Zosyn 3.375 GM Premix 50 ML @ 50 / 50 50 / 50 100 / 100 100 mls/hr IV.SIG Q8H [facility] Rx#: [id number] Thiamine Inj 500 MG In NS Inj 240 / 240 500 ML @ 21 mls/hr IV.SIG Q24H [facility] Rx#:[id number] Oral 480 / 480 240 / 240 Other: # Voids 1 Date of Last Bowel Movement 12/16/17 12/16/17 12/16/17 - Constitutional no acute distress - Routine HEENT Exam Head: Present: normocephalic - Routine Neck Exam Present: supple - Routine Respiratory Exam Present: CTA bilaterally - Routine Cardiovascular Exam Present: RRR - Routine Abdominal Exam Present: soft, normoactive bowel sounds, tenderness Comments: Pain upon PE <Oliver Blank - Last Filed: 12/20/17 16:55> Vital signs: Vital Signs 12/19/17 20:00 12/19/17 20:28 12/19/17 23:00 Temperature 99.6 F Pulse Rate 82 80 Respiratory Rate 18 18 16 Blood Pressure 112/57 L Pulse Oximetry 94 L 12/19/17 23:14 12/20/17 04:00 12/20/17 07:22 Temperature 98.5 F Pulse Rate 74 79 73 Respiratory Rate 18 18 16 Blood Pressure 117/62 Pulse Oximetry 93 L 12/20/17 07:31 12/20/17 08:00 12/20/17 10:05 Temperature 98.5 F Pulse Rate 77 85 Respiratory Rate 18 Blood Pressure 104/56 L Pulse Oximetry 92 L 93 L 12/20/17 11:00 12/20/17 11:28 12/20/17 12:00 Temperature 99.3 F Pulse Rate 86 73 87 Respiratory Rate 12 18 Blood Pressure 107/55 L Pulse Oximetry 90 L 12/20/17 15:00 12/20/17 16:42 12/20/17 16:43 Temperature 98.9 F Pulse Rate 74 69 Respiratory Rate 18 20 Blood Pressure 95/53 L Pulse Oximetry 93 L 93 L Intake & Output 12/19/17 12/20/17 12/20/17 18:59 06:59 18:59 Intake Total 2320 / 2320 50 / 50 2620 / 2620 Output Total 400 / 400 Balance 2320 / 2320 50 / 50 2220 / 2220 Weight 117.2 kg Intake: IV 1840 / 1840 50 / 50 1600 / 1600 LR 1000 mL Inj 1,000 ML @ 125 1300 / 1300 1500 / 1500 mls/hr IV.CONT .Q8H [facility] Rx#: [id number] MVI-12 Inj 10 ML Folvite Inj 1 250 / 250 MG In NS Inj 500 ML @ 125 mls/ hr IV.SIG DAILY [facility] Rx#: [id number] Zosyn 3.375 GM Premix 50 ML @ 50 / 50 50 / 50 100 / 100 100 mls/hr IV.SIG Q8H [facility] Rx#: [id number] Thiamine Inj 500 MG In NS Inj 240 / 240 500 ML @ 21 mls/hr IV.SIG Q24H [facility] Rx#:[id number] Oral 480 / 480 1020 / 1020 Output: Urine 400 / 400 Other: # Voids 1 Date of Last Bowel Movement 12/16/17 12/16/17 12/16/17 # Bowel Movements 0 <Mile Gomez - Last Filed: 12/20/17 18:24> Results - Labs CBC & Chem 7: 12/20/17 06:22 12/20/17 06:22 Laboratory Results - last 24 hr 12/20/17 12/20/17 06:22 06:22 WBC 11.5 H RBC 4.22 Hgb 12.4 Hct 37.1 MCV 87.9 MCH 29.3 MCHC 33.4 RDW 15.5 Plt Count 130 L D MPV 10.0 Neut % (Auto) 86.1 H Lymph % (Auto) 5.6 L [place] % (Auto) 7.6 Eos % (Auto) 0.4 Baso % (Auto) 0.3 Neut # (Auto) 9.9 H Lymph # (Auto) 0.6 L [place] # (Auto) 0.9 Eos # (Auto) 0.0 Baso # (Auto) 0.0 WBC Differential . Differential Comment Auto diff final Sodium 141 Potassium 3.1 L D Chloride 105 Carbon Dioxide 25.5 Anion Gap 11 BUN 6 L Creatinine 0.63 Estimated GFR Greater than 89 Random Glucose 107 H Calcium 8.4 L Phosphorus 3.5 D Magnesium 2.1 Total Bilirubin 0.6 AST 16 ALT 42 Alkaline Phosphatase 154 H Total Protein 6.5 Albumin 2.0 L Lipase 116 Microbiology 12/19/17 21:00 Sputum - Expectorated Sputum Gram Stain - Final 12/19/17 21:00 Sputum - Expectorated Sputum Sputum Culture - Preliminary Immature growth - reincubate - Imaging Impressions Chest CTA 12/19/17 00:00 CONCLUSION: Venous Doppler Study 12/19/17 00:00 CONCLUSION: 1. No evidence of deep venous thrombosis. 2. Small Beth's cyst in the right popliteal fossa. <Oliver Blank - Last Filed: 12/20/17 16:55> - Labs CBC & Chem 7: 12/20/17 06:22 12/20/17 06:22 Laboratory Results - last 24 hr 12/20/17 12/20/17 12/20/17 06:22 06:22 16:42 WBC 11.5 H RBC 4.22 Hgb 12.4 Hct 37.1 MCV 87.9 MCH 29.3 MCHC 33.4 RDW 15.5 Plt Count 130 L D MPV 10.0 Neut % (Auto) 86.1 H Lymph % (Auto) 5.6 L [place] % (Auto) 7.6 Eos % (Auto) 0.4 Baso % (Auto) 0.3 Neut # (Auto) 9.9 H Lymph # (Auto) 0.6 L [place] # (Auto) 0.9 Eos # (Auto) 0.0 Baso # (Auto) 0.0 WBC Differential . Differential Comment Auto diff final Sodium 141 Potassium 3.1 L D Chloride 105 Carbon Dioxide 25.5 Anion Gap 11 BUN 6 L Creatinine 0.63 Estimated GFR Greater than 89 Random Glucose 107 H Calcium 8.4 L Phosphorus 3.5 D Magnesium 2.1 Total Bilirubin 0.6 AST 16 ALT 42 Alkaline Phosphatase 154 H Total Creatine Kinase 78 Troponin I Less than 0.02 L Total Protein 6.5 Albumin 2.0 L Lipase 116 Microbiology 12/19/17 21:00 Sputum - Expectorated Sputum Gram Stain - Final 12/19/17 21:00 Sputum - Expectorated Sputum Sputum Culture - Preliminary Immature growth - reincubate - Imaging Impressions Chest CTA 12/19/17 00:00 CONCLUSION: Venous Doppler Study 12/19/17 00:00 CONCLUSION: 1. No evidence of deep venous thrombosis. 2. Small Beth's cyst in the right popliteal fossa. <Mile Gomez - Last Filed: 12/20/17 18:24> Assessment and Plan (1) Pancreatitis Status: Acute Code(s): K85.90 - Acute pancreatitis without necrosis or infection, unspecified - Plan - Acute pancreatitis with elevated LFTs [id number] AST-341 ALT-272 Alk phos-[address] abdomen and pelvis W IV contrast --> Ct findings characteristic of an acute pancreatitis with peripancreatic inflammatory changes Pt complaining of epigastric pain that came on suddenly last night, described as burning, constant. Associated nausea and vomiting, denies hematemesis and coffee ground emesis. Denies history of pancreatitis. Unsure of family history of pancreatic issues , states his mother has 1/3 of her stomach. Denies ETOH, illicit drug use. Only new medication is Atrovent, denies any other OTC or prescription medications. Denies previous cholecystectomy. Denies history of liver issues, tattoos, history of IV drug use, high risk sexual behaviors. (12/17) Able to obtain more history today, pt was vomiting and minimally answering questions yesterday. Does report occasional ETOH, states had half a beer last Saturday and prior to that a lola two months ago. She is concerned that she takes multiple pain medications and this could be a factor, (Tizanidine, Percocet, Morphine, Opana, Cymbalta, Xarelto). Reviewed these medications and do not see any as causative factor for pancreatitis. So far MRCP negative for CBD stones (although possibility of passed a stone or sludge), US negative for cholelithiasis. Lipid panel WNL. Lipase improved significantly today and LFTs trending down. Hepatitis panel negative. Labs pending to rule out auto-immune pancreatitis * Discussed with Dr. Dixon (12/18) Pt still symptomatic today with severe abdominal pain and nausea, will not advance diet at this time. Improvement in lipase. ABG pending. RYLAN pending but IgG 4 WNL. Pain control difficult because pt is on a significant amount of pain medication on a chronic basis (12/19) Continued abdominal pain, rates it a 9/10. Lipase improving. Possibly start on clear liquids tomorrow depending on how she is feeling. If continued severe pain will consider Dobbhoff for feedings. Repeat CT tomorrow if no improvement. Pt also complaining of SOB, states it has been going on for a long time- will obtain pulmonology consult to further evaluate ( 12/20/17) Persistent abd pain, not tolerating diet, still with nausea and pain aggravated by eating Lipase normal, LFTs marked improvement, just slight elevation in AlP Plan: low fat diet as tolerated Ct of abd Consider Dobbhoff if not tolerating diet will need EGD once stable IVF Pain control Monitor electrolytes Antiemetics PRN Pepcid Further recommendations based on clinical course and results of above <Oliver Blank - Last Filed: 12/20/17 16:55> (1) Pancreatitis Status: Acute Code(s): K85.90 - Acute pancreatitis without necrosis or infection, unspecified <Mile Gomez - Last Filed: 12/20/17 18:24> <Oliver Blank - Last Filed: 12/20/17 16:55> (1) Pancreatitis Qualifiers: Chronicity: acute Pancreatitis type: unspecified pancreatitis type Acute pancreatitis complication: unspecified Qualified Code(s): K85.90 - Acute pancreatitis without necrosis or infection, unspecified <Mile Gomez - Last Filed: 12/20/17 18:24> (1) Pancreatitis Qualifiers: Chronicity: acute Pancreatitis type: unspecified pancreatitis type Acute pancreatitis complication: unspecified Qualified Code(s): K85.90 - Acute pancreatitis without necrosis or infection, unspecified
[2017-12-20 17:50] LABS: Creatine Kinase 78 U/L (26-192)
[2017-12-20] MEDS ORDERED: Diatrizoate Meglum/Diatrizoate Sod Liq 9 ML UDC PO ONE (19:00)
[2017-12-20] MEDS ORDERED: Diatrizoate Meglum/Diatrizoate Sod Liq 9 ML UDC PO SCH (19:15)
--- NOTE | 2017-12-20 22:09 | CT ---
EXAM DATE: 12/20/2017 8:55 PM EDT AGE/SEX: 57 years / Female INDICATIONS: Abdominal pain, acute pancreatitis. CLINICAL DATA: This is the patient's initial encounter. Patient reports that signs and symptoms have been present for 1 day and indicates a pain score of 6/10. MEDICAL/SURGICAL HISTORY: Emphysema. Pancreatitis. None. ORAL CONTRAST: Prescribed oral contrast ingested. RADIATION DOSE: 17.00 CTDI (mGy) COMPARISON: [facility] – [place] ABDOMEN & PELVIS W CONTRAST, 12/16/2017. . TECHNIQUE: Multiple contiguous axial images were obtained through the abdomen and pelvis following b olus infusion of 100 ml Omnipaque 350 (iohexol) nonionic water-soluble contrast as a single exam do se. Prescribed oral contrast ingested. Using automated exposure control and adjustment of the mA and /or kV according to patient size, radiation dose was kept as low as reasonably achievable to obtain o ptimal diagnostic quality images. DICOM format image data is available electronically for review and comparison. FINDINGS: Lower Lungs: There is increased density at the lower lungs bilaterally being worse on the right likel y related to consolidation and/or atelectasis. Liver: The liver has a homogeneous density without space-occupying lesion. There is no dilation of th e biliary tree. Spleen: Homogeneous density without enlargement. Pancreas: There appears to be edema and induration surrounding the pancreas. This extends into the c eliac region Kidneys: Normal in size and shape. No evidence of mass or hydronephrosis. Adrenal Glands: Unremarkable. Aorta: The aorta and proximal iliac vessels are grossly unremarkable without aneurysmal dilation. Bowel/Mesentery: The bowel loops are grossly unremarkable. The cecum and sigmoid colon have a normal configuration. Abdominal Wall: Intact. Retroperitoneum: No evidence of adenopathy in the retrocrural, para-aortic, or deep pelvic regions. Bladder: Contours are smooth. Reproductive Organs: No abnormal masses or calcifications seen. Inguinal: The inguinal region is unremarkable without evidence of adenopathy. Bony Structures: There is degenerative and postsurgical change at the lumbar spine. CONCLUSION: 1. Induration around the pancreas consistent with acute pancreatitis. These findings were present pr eviously and appear unchanged. 2. Areas of consolidation or atelectasis at the lower lungs bilaterally. This finding is worse on th e right. This has progressed. Electronically signed by: Kristofer Child MD 12/20/2017 10:08 PM EDT
[2017-12-20 23:42] LABS: Creatine Kinase 40 U/L (26-192)
[2017-12-21 04:16] LABS: Baso % (Auto) 0.2 % (0.0-2.0); Eos # (Auto) 0.1 th/mm3 (0.0-0.4); Eos % (Auto) 0.6 % (0.0-4.0); Hematocrit 41.2 % (35.0-46.0); Hemoglobin 13.8 gm/dL (11.6-15.3); Lymph # (Auto) 0.6 th/mm3 (1.0-4.8); Lymph % (Auto) 5.8 % (9.0-44.0); Mean Corpuscular HGB Conc 33.5 % (32.0-36.0); Mean Corpuscular Hemoglobin 30.1 pg (27.0-34.0); Mean Corpuscular Volume 89.6 fL (80.0-100.0); Mean Platelet Volume 9.6 fL (7.0-11.0); Mono # (Auto) 0.9 th/mm3 (0.0-0.9); Mono % (Auto) 8.3 % (0.0-8.0); Neut # (Auto) 8.9 th/mm3 (1.8-7.7); Neut % (Auto) 85.1 % (16.0-70.0); Platelet Count 173 th/mm3 (150-450); White Blood Count 10.4 th/mm3 (4.0-11.0)
[2017-12-21 04:46] LABS: Albumin 2.4 g/dL (3.4-5.0); Anion Gap 7 meq/L (5-15); Aspartate Aminotransferase 17 U/L (15-37); Blood Urea Nitrogen 6 mg/dL (7-18); Calcium 8.8 mg/dL (8.5-10.1); Carbon Dioxide 27.6 meq/L (21.0-32.0); Chloride 106 meq/L (98-107); Glomerular Filtration Rate 75 mL/min (>89); Glucose,Random 127 mg/dL (74-106); Lipase 95 U/L (73-393); Magnesium 2.1 mg/dL (1.5-2.5); Sodium 141 meq/L (136-145)
[2017-12-21 04:50] LABS: Alanine Aminotransferase 47 U/L (10-53); Alkaline Phosphatase 127 U/L (45-117); Phosphorus 3.4 mg/dL (2.5-4.9); Total Protein 7.5 g/dL (6.4-8.2)
[2017-12-21 04:56] LABS: Creatine Kinase 40 U/L (26-192)
[2017-12-21] MEDS: Piperacil/Tazo 3.375 GM Premix 50 ML IV.SIG SCH ×3 (06:30→14:24)
[2017-12-21] MEDS: oxyCODONE/Acetaminophen 10/325 Tablet PO PRN ×3 (06:35→16:55)
[2017-12-21] MEDS: Chlorhexidine Gluconate 2% 1 Pack (2 Cloths) TOPICAL SCH (07:45)
[2017-12-21] MEDS ORDERED: Multivitamin/Minerals Therapeutic Tablet PO SCH (09:00)
[2017-12-21] MEDS ORDERED: Folic Acid 1 MG Tablet PO SCH (09:00)
[2017-12-21] MEDS: Morphine Sulfate 30 MG SR Tablet PO SCH ×2 (09:35→22:08)
[2017-12-21] MEDS: Famotidine PF Inj 20 MG/2 ML Vial IV.PUSH SCH ×2 (09:35→22:08)
[2017-12-21] MEDS: Heparin - SQ 10,000 UNITS/ML Vial SQ SCH ×3 (09:36→16:55)
[2017-12-21] MEDS: Tiotropium Bromide 18 MCG/ACT Inhaler INH SCH (09:37)
[2017-12-21] MEDS: Budesonide-Formoterol 160/4.5 MCG 6 GM Inhaler INH SCH ×2 (09:37→22:09)
[2017-12-21] MEDS ORDERED: Potassium Chloride 10 MEQ ER Capsule PO ONE (11:00)
--- NOTE | 2017-12-21 13:08 | P.PNGI ---
Subjective Interval history: Pt is resting in bed, still with significant abd pain, originates from epigastric area to the rest of the abd. having nausea but no vomiting Physical Exam Vital signs: Vital Signs 12/20/17 15:00 12/20/17 16:42 12/20/17 16:43 Temperature 98.9 F Pulse Rate 74 69 Respiratory Rate 18 20 Blood Pressure 95/53 L Pulse Oximetry 93 L 93 L 12/20/17 18:24 12/20/17 20:04 12/20/17 23:00 Temperature 98.5 F Pulse Rate 64 64 67 Respiratory Rate 16 16 Blood Pressure 99/52 L Pulse Oximetry 93 L 12/21/17 00:00 12/21/17 00:58 12/21/17 01:00 Temperature 99.5 F Pulse Rate 75 82 79 Respiratory Rate 16 17 Blood Pressure 96/53 L Pulse Oximetry 94 L 94 L 12/21/17 03:00 12/21/17 04:00 12/21/17 08:00 Temperature 98.7 F 98.5 F Pulse Rate 78 83 Respiratory Rate 16 16 14 Blood Pressure 111/66 102/59 L Pulse Oximetry 95 90 L 12/21/17 08:25 12/21/17 11:42 Temperature Pulse Rate 76 77 Respiratory Rate 19 18 Blood Pressure Pulse Oximetry 93 L Intake & Output 12/20/17 12/21/17 12/21/17 18:59 06:59 18:59 Intake Total 2980 / 2980 50 / 50 Output Total 400 / 400 Balance 2580 / 2580 50 / 50 Weight 119.6 kg Intake: IV 1600 / 1600 50 / 50 LR 1000 mL Inj 1,000 ML @ 125 1500 / 1500 mls/hr IV.CONT .Q8H CAROL ANN Rx#: [id number] Zosyn 3.375 GM Premix 50 ML @ 100 / 100 50 / 50 100 mls/hr IV.SIG Q8H CAROL ANN Rx#: [id number] Oral 1380 / 1380 Output: Urine 400 / 400 Other: # Voids 6 2 Date of Last Bowel Movement 12/16/17 12/16/17 12/16/17 # Bowel Movements 0 - Constitutional no acute distress - Routine HEENT Exam Head: Present: normocephalic - Routine Respiratory Exam Present: CTA bilaterally - Routine Cardiovascular Exam Present: RRR - Routine Abdominal Exam Present: soft, normoactive bowel sounds, tenderness Comments: severe pain upon PE - Routine Extremities Exam Absent: edema - Routine Skin Exam Absent: jaundice - Routine Neurological Exam Present: alert, oriented X3 Results - Labs CBC & Chem 7: 12/21/17 03:51 12/21/17 03:51 Laboratory Results - last 24 hr 12/20/17 12/20/17 12/21/17 16:42 22:55 03:51 WBC 10.4 RBC 4.60 Hgb 13.8 Hct 41.2 MCV 89.6 MCH 30.1 MCHC 33.5 RDW 16.0 Plt Count 173 D MPV 9.6 Neut % (Auto) 85.1 H Lymph % (Auto) 5.8 L [place] % (Auto) 8.3 H Eos % (Auto) 0.6 Baso % (Auto) 0.2 Neut # (Auto) 8.9 H Lymph # (Auto) 0.6 L [place] # (Auto) 0.9 Eos # (Auto) 0.1 Baso # (Auto) 0.0 WBC Differential . Differential Comment Auto diff final Sodium Potassium Chloride Carbon Dioxide Anion Gap BUN Creatinine Estimated GFR Random Glucose Calcium Phosphorus Magnesium Total Bilirubin AST ALT Alkaline Phosphatase Total Creatine Kinase 78 40 Troponin I Less than 0.02 L Less than 0.02 L Total Protein Albumin Lipase 12/21/17 12/21/17 03:51 03:51 WBC RBC Hgb Hct MCV MCH MCHC RDW Plt Count MPV Neut % (Auto) Lymph % (Auto) [place] % (Auto) Eos % (Auto) Baso % (Auto) Neut # (Auto) Lymph # (Auto) [place] # (Auto) Eos # (Auto) Baso # (Auto) WBC Differential Differential Comment Sodium 141 Potassium 3.0 L Chloride 106 Carbon Dioxide 27.6 Anion Gap 7 BUN 6 L Creatinine 0.79 Estimated GFR 75 L Random Glucose 127 H Calcium 8.8 Phosphorus 3.4 Magnesium 2.1 Total Bilirubin 0.5 AST 17 ALT 47 Alkaline Phosphatase 127 H Total Creatine Kinase 40 Troponin I Less than 0.02 L Total Protein 7.5 D Albumin 2.4 L Lipase 95 Microbiology 12/19/17 21:00 Sputum - Expectorated Sputum Gram Stain - Final 12/19/17 21:00 Sputum - Expectorated Sputum Sputum Culture - Final Heavy growth normal respiratory naresh - Imaging Impressions Abdomen/Pelvis CT 12/20/17 00:00 CONCLUSION: 1. Induration around the pancreas consistent with acute pancreatitis. These findings were present previously and appear unchanged. 2. Areas of consolidation or atelectasis at the lower lungs bilaterally. This finding is worse on the right. This has progressed. Assessment and Plan (1) Pancreatitis Status: Acute Code(s): K85.90 - Acute pancreatitis without necrosis or infection, unspecified - Plan - Acute pancreatitis with elevated LFTs [id number] AST-341 ALT-272 Alk phos-[address] abdomen and pelvis W IV contrast --> Ct findings characteristic of an acute pancreatitis with peripancreatic inflammatory changes Pt complaining of epigastric pain that came on suddenly last night, described as burning, constant. Associated nausea and vomiting, denies hematemesis and coffee ground emesis. Denies history of pancreatitis. Unsure of family history of pancreatic issues , states his mother has 1/3 of her stomach. Denies ETOH, illicit drug use. Only new medication is Atrovent, denies any other OTC or prescription medications. Denies previous cholecystectomy. Denies history of liver issues, tattoos, history of IV drug use, high risk sexual behaviors. (12/17) Able to obtain more history today, pt was vomiting and minimally answering questions yesterday. Does report occasional ETOH, states had half a beer last Saturday and prior to that a lola two months ago. She is concerned that she takes multiple pain medications and this could be a factor, (Tizanidine, Percocet, Morphine, Opana, Cymbalta, Xarelto). Reviewed these medications and do not see any as causative factor for pancreatitis. So far MRCP negative for CBD stones (although possibility of passed a stone or sludge), US negative for cholelithiasis. Lipid panel WNL. Lipase improved significantly today and LFTs trending down. Hepatitis panel negative. Labs pending to rule out auto-immune pancreatitis * Discussed with Dr. Dixon (12/18) Pt still symptomatic today with severe abdominal pain and nausea, will not advance diet at this time. Improvement in lipase. ABG pending. RYLAN pending but IgG 4 WNL. Pain control difficult because pt is on a significant amount of pain medication on a chronic basis (12/19) Continued abdominal pain, rates it a 9/10. Lipase improving. Possibly start on clear liquids tomorrow depending on how she is feeling. If continued severe pain will consider Dobbhoff for feedings. Repeat CT tomorrow if no improvement. Pt also complaining of SOB, states it has been going on for a long time- will obtain pulmonology consult to further evaluate ( 12/20/17) Persistent abd pain, not tolerating diet, still with nausea and pain aggravated by eating Lipase normal, LFTs marked improvement, just slight elevation in AlP (12/21/17) Still with significant pain Abdomen/Pelvis CT 12/20/17 00:00 1. Induration around the pancreas consistent with acute pancreatitis. These findings were present previously and appear unchanged. 2. Areas of consolidation or atelectasis at the lower lungs bilaterally. This finding is worse on the right. This has progressed. Plan: Clear liquid Stat HIDA Consider Dobbhoff if not tolerating diet EGD on Saturday Consents NPO Saturday MN IVF Pain control Monitor electrolytes Antiemetics PRN Pepcid Further recommendations based on clinical course and results of above (1) Pancreatitis Qualifiers: Chronicity: acute Pancreatitis type: unspecified pancreatitis type Acute pancreatitis complication: unspecified Qualified Code(s): K85.90 - Acute pancreatitis without necrosis or infection, unspecified
--- NOTE | 2017-12-21 15:05 | P.PNIM ---
Subjective Interval history: This is a 57-year-old female with a unremarkable past medical history who presents with 1 day history of severe abdominal pain. She states this started yesterday afternoon. She denies alcohol use, and specifically states that she had one beer about a week ago and one lola about a month ago. She states that her mother had a history of gallstones. She endorses nausea/vomiting. Her emesis is nonbilious and not bloody. She denies any hematemesis or bright red blood per rectum. She denies any fever/chills. Denies any other symptoms including shortness of breath chest pain. In the emergency department she has severely elevated lipase greater than 15,000. CT scan is positive for acute pancreatitis. MRCP does not demonstrate any stone. Right upper quadrant ultrasound does not demonstrate dilated biliary ducts. The remainder of the review of systems is negative unless otherwise stated. 12/17: Patient seen in the ED. she states that she is slightly improved. Still has nausea without vomiting. Lipase decreased from 16,000-2500. WBC count also trending down. Creatinine normal. Calcium 8.3. Currently approximately 3 [place]'s criteria, but 48 hours has not passed yet for ABG and other components 7-25 WANTS something to eat. States still with abdominal pain mostly in the middle and right area. States that she did not drink alcohol ONLY SIPS of beer before coming in. 7-26 Mrs. Carrington is having some improvement in her abdominal pain. She also reports a left lower extremity DVT for which she was on Xarelto for. This has not been followed up and she has been on Xarelto for 10 months. She also says that her respiratory status has been gradually worsening. She continues to smoke and is recommended not to smoke. She feels this may be related to a history of lung masses which she has not followed up with since January. She says between January 2017 and July 2017 she had an interval increase in these masses. Imaging does not appear to have been obtained here. 7- Patient's primary complaint today is pain. She has a history of DVT but imaging shows no DVT so at discharge she will not need continuation of her Xarelto. Chest imaging showed no evidence of PE or pulmonary masses. She likely has COPD at baseline as she says she has been diagnosed with this in the past. Pulmonary function testing as an outpatient has been recommended by pulmonology. This point her pain is prohibiting her from feeling that she can ambulate well. She also says that she has not been eating much with her meals and only drinking. She remained on IV fluids overnight. Pancreatic enzymes continue to improve. 12-21 TO HAVE HIDA TODAY AND EGD ON SATURDAY MAY NEED NGT AND TUBE FEEDS IN FUTURE STILL COMPLAINS OF ABDOMINAL PAIN DW RN AND PT AND CM Physical Exam Vital signs: Vital Signs 12/20/17 15:00 12/20/17 16:42 12/20/17 16:43 Temperature 98.9 F Pulse Rate 74 69 Respiratory Rate 18 20 Blood Pressure 95/53 L Pulse Oximetry 93 L 93 L 12/20/17 18:24 12/20/17 20:04 12/20/17 23:00 Temperature 98.5 F Pulse Rate 64 64 67 Respiratory Rate 16 16 Blood Pressure 99/52 L Pulse Oximetry 93 L 12/21/17 00:00 12/21/17 00:58 12/21/17 01:00 Temperature 99.5 F Pulse Rate 75 82 79 Respiratory Rate 16 17 Blood Pressure 96/53 L Pulse Oximetry 94 L 94 L 12/21/17 03:00 12/21/17 04:00 12/21/17 08:00 Temperature 98.7 F 98.5 F Pulse Rate 78 83 Respiratory Rate 16 16 14 Blood Pressure 111/66 102/59 L Pulse Oximetry 95 90 L 12/21/17 08:25 12/21/17 11:42 12/21/17 12:00 Temperature 98.3 F Pulse Rate 76 77 79 Respiratory Rate 19 18 12 Blood Pressure 94/51 L Pulse Oximetry 93 L 89 L Intake & Output 12/20/17 12/21/17 12/21/17 18:59 06:59 18:59 Intake Total 2980 / 2980 50 / 50 50 / 50 Output Total 400 / 400 Balance 2580 / 2580 50 / 50 50 / 50 Weight 119.6 kg Intake: IV 1600 / 1600 50 / 50 50 / 50 LR 1000 mL Inj 1,000 ML @ 125 1500 / 1500 mls/hr IV.CONT .Q8H CAROL ANN Rx#: [id number] Zosyn 3.375 GM Premix 50 ML @ 100 / 100 50 / 50 50 / 50 100 mls/hr IV.SIG Q8H CAROL ANN Rx#: [id number] Oral 1380 / 1380 Output: Urine 400 / 400 Other: # Voids 6 2 Date of Last Bowel Movement 12/16/17 12/16/17 12/16/17 # Bowel Movements 0 Narrative: GENERAL: NAD, A&Ox3 HEAD: Normocephalic. NECK: Supple, trachea midline. No lymphadenopathy. EYES: No scleral icterus. No injection or drainage. PERRLA EMOI CARDIOVASCULAR: Regular rate and rhythm without murmurs, gallops, or rubs. S1, S2 NO S3 OR S4 RESPIRATORY: Breath sounds equal bilaterally. No accessory muscle use. GASTROINTESTINAL: Abdomen soft, tender abdomen, nondistended. MUSCULOSKELETAL: No cyanosis, or edema. SKIN: Warm and dry. NEURO: No focal neurological deficits. Results - Labs CBC & Chem 7: 12/21/17 03:51 12/21/17 03:51 Laboratory Results - last 24 hr 12/20/17 12/20/17 12/21/17 16:42 22:55 03:51 WBC 10.4 RBC 4.60 Hgb 13.8 Hct 41.2 MCV 89.6 MCH 30.1 MCHC 33.5 RDW 16.0 Plt Count 173 D MPV 9.6 Neut % (Auto) 85.1 H Lymph % (Auto) 5.8 L [place] % (Auto) 8.3 H Eos % (Auto) 0.6 Baso % (Auto) 0.2 Neut # (Auto) 8.9 H Lymph # (Auto) 0.6 L [place] # (Auto) 0.9 Eos # (Auto) 0.1 Baso # (Auto) 0.0 WBC Differential . Differential Comment Auto diff final Sodium Potassium Chloride Carbon Dioxide Anion Gap BUN Creatinine Estimated GFR Random Glucose Calcium Phosphorus Magnesium Total Bilirubin AST ALT Alkaline Phosphatase Total Creatine Kinase 78 40 Troponin I Less than 0.02 L Less than 0.02 L Total Protein Albumin Lipase 12/21/17 12/21/17 03:51 03:51 WBC RBC Hgb Hct MCV MCH MCHC RDW Plt Count MPV Neut % (Auto) Lymph % (Auto) [place] % (Auto) Eos % (Auto) Baso % (Auto) Neut # (Auto) Lymph # (Auto) [place] # (Auto) Eos # (Auto) Baso # (Auto) WBC Differential Differential Comment Sodium 141 Potassium 3.0 L Chloride 106 Carbon Dioxide 27.6 Anion Gap 7 BUN 6 L Creatinine 0.79 Estimated GFR 75 L Random Glucose 127 H Calcium 8.8 Phosphorus 3.4 Magnesium 2.1 Total Bilirubin 0.5 AST 17 ALT 47 Alkaline Phosphatase 127 H Total Creatine Kinase 40 Troponin I Less than 0.02 L Total Protein 7.5 D Albumin 2.4 L Lipase 95 Microbiology 12/19/17 21:00 Sputum - Expectorated Sputum Gram Stain - Final 12/19/17 21:00 Sputum - Expectorated Sputum Sputum Culture - Final Heavy growth normal respiratory naresh - Imaging Impressions Abdomen/Pelvis CT 12/20/17 00:00 CONCLUSION: 1. Induration around the pancreas consistent with acute pancreatitis. These findings were present previously and appear unchanged. 2. Areas of consolidation or atelectasis at the lower lungs bilaterally. This finding is worse on the right. This has progressed. Assessment and Plan - Plan 57-year-old female admitted secondary to acute pancreatitis Start physical therapy to determine patient's ambulation capacity. Transition off of IV fluids. Continue to monitor lipase level. Patient is encouraged to attempt to take meals by mouth to determine if she can tolerate p.o. intake without recurrence of her pancreatitis. CHANGED TO LIQUIDS BY GI Abdominal pain Acute Severe pancreatitis FOR HIDA SCAN 12-21 Albuterol continue to monitor lipase Advance diet-PER GI Acute kidney injury Follow renal function Acute liver injury Continue to follow LFTs History of left leg DVT Obtain ultrasound, may we will discontinue Xarelto NO PE NOTED ON CTA History of lung masses Pain CT of chest COPD/PNA Avoid albuterol due negative side effects Continue Spiriva Continue inhaled corticosteroid CONTINUE ON ZOSYN DVT prophylaxis Heparin SCDs Code Status: FULL CODE Discussed Condition With: RN AND PT Discharge Planning: PENDING GI CLEARANCE AND IMPROVEMENT
[2017-12-21] MEDS: HYDROmorphone PF Inj 2 MG/ML Vial IV.PUSH PRN (15:23)
[2017-12-21] MEDS ORDERED: Sincalide Inj 5 MCG Vial IV.PUSH ONE (18:14)
--- NOTE | 2017-12-21 19:21 | NM ---
EXAM DATE: 12/21/2017 7:09 PM EDT AGE/SEX: 57 years / Female INDICATIONS: Acute pancreatitis with nausea and abdomen pain. CLINICAL DATA: This is the patient's initial encounter. Patient reports that signs and symptoms have been present for 1 day and indicates a pain score of 0/10. MEDICAL/SURGICAL HISTORY: Emphysema. Hysterectomy. COMPARISON: No prior exams available for comparison. DOSE: 4.3 mCi Tc-99m mebrofenin i.v. Medication: 2.38 mcg Cholecystokinin IV No symptomatic response Cholecystokinin was administered by slow infusion over 8 minutes beginning at 60 MINS. parag rudolph. TECHNIQUE: Following the intravenous administration of radiotracer, dynamic sequential images were pe rformed with continuous acquisition. Time-activity curves were generated. FINDINGS: There is good uptake radiotracer in the liver with visualization of gallbladder and 20 minutes. There is sluggish emptying of the gallbladder with CCK with moderate gastroenteric reflux. CONCLUSION: 1. No cystic duct or common duct obstruction 2. Moderate gastroenteric reflux with CCK. Electronically signed by: Phil Westbrook MD 12/21/2017 7:20 PM EDT
[2017-12-21] MEDS: guaiFENesin 600 MG ER Tablet PO SCH (22:07)
[2017-12-21] MEDS: Piperacil/Tazo 4.5 GM Premix 4.5 GM/100 ML BAG IV.SIG SCH (22:08)
[2017-12-22] MEDS: Piperacil/Tazo 4.5 GM Premix 4.5 GM/100 ML BAG IV.SIG SCH ×4 (01:14→19:55)
[2017-12-22] MEDS: oxyCODONE/Acetaminophen 10/325 Tablet PO PRN ×4 (01:15→17:13)
[2017-12-22] MEDS: Heparin - SQ 10,000 UNITS/ML Vial SQ SCH ×3 (01:15→17:16)
[2017-12-22 07:15] LABS: Prothrombin Time 10.6 sec (9.8-11.6)
[2017-12-22 07:35] LABS: Baso # (Auto) 0.1 th/mm3 (0.0-0.2); Baso % (Auto) 0.5 % (0.0-2.0); Eos # (Auto) 0.1 th/mm3 (0.0-0.4); Eos % (Auto) 0.9 % (0.0-4.0); Hematocrit 37.3 % (35.0-46.0); Hemoglobin 12.5 gm/dL (11.6-15.3); Lymph % (Auto) 8.5 % (9.0-44.0); Mean Corpuscular HGB Conc 33.4 % (32.0-36.0); Mean Corpuscular Hemoglobin 30.3 pg (27.0-34.0); Mean Corpuscular Volume 90.8 fL (80.0-100.0); Mean Platelet Volume 10.2 fL (7.0-11.0); Mono # (Auto) 1.3 th/mm3 (0.0-0.9); Mono % (Auto) 10.6 % (0.0-8.0); Neut # (Auto) 9.8 th/mm3 (1.8-7.7); Neut % (Auto) 79.5 % (16.0-70.0); Platelet Count 159 th/mm3 (150-450); Red Blood Count 4.11 mil/mm3 (4.00-5.30); Red Cell Distribution Width 16.6 % (11.6-17.2); White Blood Count 12.3 th/mm3 (4.0-11.0)
[2017-12-22 07:53] LABS: Alanine Aminotransferase 43 U/L (10-53); Alkaline Phosphatase 121 U/L (45-117); Free T4 (Free Thyroxine) 1.08 ng/dL (0.76-1.46); Phosphorus 3.2 mg/dL (2.5-4.9)
[2017-12-22 08:00] LABS: Albumin 2.2 g/dL (3.4-5.0); Amylase 15 U/L (25-115); Anion Gap 6 meq/L (5-15); Aspartate Aminotransferase 24 U/L (15-37); Blood Urea Nitrogen 9 mg/dL (7-18); Calcium 8.5 mg/dL (8.5-10.1); Carbon Dioxide 27.1 meq/L (21.0-32.0); Chloride 108 meq/L (98-107); Glomerular Filtration Rate 76 mL/min (>89); Glucose,Random 101 mg/dL (74-106); Lipase 91 U/L (73-393); Potassium 3.7 meq/L (3.5-5.1); Sodium 141 meq/L (136-145)
[2017-12-22] MEDS: guaiFENesin 600 MG ER Tablet PO SCH ×2 (09:17→21:30)
[2017-12-22] MEDS: Morphine Sulfate 30 MG SR Tablet PO SCH ×2 (09:17→21:30)
[2017-12-22] MEDS: Famotidine PF Inj 20 MG/2 ML Vial IV.PUSH SCH ×2 (09:18→21:30)
[2017-12-22] MEDS: Budesonide-Formoterol 160/4.5 MCG 6 GM Inhaler INH SCH ×2 (09:22→21:31)
[2017-12-22] MEDS: Tiotropium Bromide 18 MCG/ACT Inhaler INH SCH (09:23)
--- NOTE | 2017-12-22 10:33 | P.PN ---
Subjective Interval history: Follow-up on patient with acute pancreatitis. Patient seen and examined. Patient complains of persistent and severe abdominal pain. She is poorly tolerating clear liquid diet. She reports persistent nausea with dry heaves. She denies any fever or chills. She denies any chest pain or shortness of breath. States her last bowel movement was a week ago last Saturday. She denies any dysuria. Physical Exam Vital signs: Vital Signs 12/21/17 11:42 12/21/17 12:00 12/21/17 16:00 Temperature 98.3 F 98.9 F Pulse Rate 77 79 76 Respiratory Rate 18 12 16 Blood Pressure 94/51 L 100/57 L Pulse Oximetry 89 L 82 L 12/21/17 16:04 12/21/17 19:45 12/21/17 20:45 Temperature 98.4 F Pulse Rate 72 78 80 Respiratory Rate 16 14 19 Blood Pressure 105/60 Pulse Oximetry 95 12/22/17 00:10 12/22/17 00:15 12/22/17 02:49 Temperature 97.9 F Pulse Rate 74 101 H Respiratory Rate 18 20 14 Blood Pressure 110/62 Pulse Oximetry 96 12/22/17 04:55 12/22/17 06:30 12/22/17 08:00 Temperature 98.9 F 98.9 F Pulse Rate 78 105 H 77 Respiratory Rate 16 20 12 Blood Pressure 106/66 118/53 L Pulse Oximetry 94 L 94 L 12/22/17 08:42 12/22/17 08:43 Temperature Pulse Rate 105 H Respiratory Rate 15 Blood Pressure Pulse Oximetry 94 L Intake & Output 12/21/17 12/22/17 12/22/17 18:59 06:59 18:59 Intake Total 50 / 50 3100 / 3100 Balance 50 / 50 3100 / 3100 Weight 120 kg Intake: IV 50 / 50 250 / 250 Zosyn 3.375 GM Premix 50 ML @ 50 / 50 50 / 50 100 mls/hr IV.SIG Q8H CAROL ANN Rx#: [id number] Zosyn 4.5 GM Premix 4.5 gm In 200 / 200 100 ml @ 200 mls/hr IV.SIG Q6H CAROL ANN Rx#:[id number] Oral 2850 / 2850 Other: # Voids 4 2 Date of Last Bowel Movement 12/16/17 # Bowel Movements 0 Narrative: GENERAL: This is a well-developed, well-nourished female INAD. Awake. Appears somewhat lethargic. SKIN: Warm and dry. No generalized rash. HEENT: Atraumatic, normocephalic. EOMI. Sclera anicteric. No nasal drainage noted. Airway patent. CARDIOVASCULAR: Regular rate and rhythm without murmurs, gallops, or rubs. RESPIRATORY: Fair air entry bilaterally, poor effort. Clear to auscultation. No accessory muscle use. GASTROINTESTINAL: Abdomen soft, tender abdomen diffusely but moreso over epigastric area, nondistended. Hypoactive BS. MUSCULOSKELETAL: No cyanosis or edema. Bilateral calves supple and nontender. NEURO: Awake. CN II-XII grossly intact. Able to move all extremities spontaneously. No focal neurological deficits. Slightly slurred speech. PSYCHIATRIC: Calm and cooperative. Results - Labs CBC & Chem 7: 12/22/17 05:54 12/22/17 05:54 Laboratory Results - last 24 hr 12/22/17 12/22/17 12/22/17 05:54 05:54 05:54 WBC 12.3 H RBC 4.11 Hgb 12.5 Hct 37.3 MCV 90.8 MCH 30.3 MCHC 33.4 RDW 16.6 Plt Count 159 MPV 10.2 Prelim Diff (Auto) Slide review pending Neut % (Auto) 79.5 H Lymph % (Auto) 8.5 L [place] % (Auto) 10.6 H Eos % (Auto) 0.9 Baso % (Auto) 0.5 Neut # (Auto) 9.8 H Lymph # (Auto) 1.0 [place] # (Auto) 1.3 H Eos # (Auto) 0.1 Baso # (Auto) 0.1 WBC Differential . Diff Scan Auto diff confirmed Differential Comment . PT 10.6 INR 1.0 Sodium Potassium Chloride Carbon Dioxide Anion Gap BUN Creatinine Estimated GFR Random Glucose Calcium Phosphorus Magnesium Total Bilirubin AST ALT Alkaline Phosphatase Total Protein Albumin Amylase Cancelled Lipase Cancelled TSH Free T4 Cancelled 12/22/17 05:54 WBC RBC Hgb Hct MCV MCH MCHC RDW Plt Count MPV Prelim Diff (Auto) Neut % (Auto) Lymph % (Auto) [place] % (Auto) Eos % (Auto) Baso % (Auto) Neut # (Auto) Lymph # (Auto) [place] # (Auto) Eos # (Auto) Baso # (Auto) WBC Differential Diff Scan Differential Comment PT INR Sodium 141 Potassium 3.7 Chloride 108 H Carbon Dioxide 27.1 Anion Gap 6 BUN 9 Creatinine 0.78 Estimated GFR 76 L Random Glucose 101 Calcium 8.5 Phosphorus 3.2 Magnesium 2.0 Total Bilirubin 0.4 AST 24 ALT 43 Alkaline Phosphatase 121 H Total Protein 7.0 Albumin 2.2 L Amylase 15 L Lipase 91 TSH 7.890 H Free T4 1.08 Microbiology 12/19/17 21:00 Sputum - Expectorated Sputum Gram Stain - Final 12/19/17 21:00 Sputum - Expectorated Sputum Sputum Culture - Final Heavy growth normal respiratory naresh - Imaging Impressions Bile Acid Absorption NM 12/21/17 13:00 CONCLUSION: 1. No cystic duct or common duct obstruction 2. Moderate gastroenteric reflux with CCK. Assessment and Plan - Plan 57-year-old female admitted secondary to acute pancreatitis Abdominal pain, persistent Acute Severe pancreatitis HIDA scan negative GI following, plan for EGD in am continue to monitor lipase levels - lipase 91, amylase 15 Advance diet-PER GI, currently on clear liquid diet. Not tolerating po well. May require Dobbhoff/tube feeds. Continue on IV fluids Continue on IV antiemetics prn Leukocytosis, mild Patient is afebrile Obtain CXR and UA monitor white count monitor clinically Acute kidney injury, resolved Follow renal function Acute liver injury, resolved Hepatitis profile negative Continue to follow LFTs History of left leg DVT previously on Xarelto US negative for DVT NO PE NOTED ON CTA Xarelto discontinued History of lung masses PNA CT chest showed increased density at the lower lobes bilaterally, emphysematous changes in the upper lungs, vague density posterior upper lobes bilaterally likely related to atelectasis, mild right pleural effusion On IV Zosyn, transition to po when better able to tolerate IS and acapella at bedside continue on Duonebs COPD, not in acute exacerbation Continue Spiriva Continue inhaled corticosteroid Continue supplemental oxygen as needed Continue to monitor respiratory status Generalized deconditioning Continue participation with PT, home with home health PT versus rehab recommended DVT prophylaxis Heparin Discussed Condition With: Patient, nursing staff and Dr. Veloz
--- NOTE | 2017-12-22 10:57 | XR ---
EXAM DATE: 12/22/2017 10:45 AM EDT AGE/SEX: 57 years / Female INDICATIONS: Cough, chest pain and shortness of breath. CLINICAL DATA: This is the patient's subsequent encounter. Patient reports that signs and symptoms h ave been present for 1 week and indicates a pain score of 6/10. MEDICAL/SURGICAL HISTORY: Emphysema. None. COMPARISON: [facility], CHEST 1V SINGLE AP, 12/18/2017. . FINDINGS: Slight cardiomegaly seen. There is improvement in aeration of the lungs with slight hazy opacity mariza ining in both lung bases possibly technical, however slight consolidation right lung base is also tara pected. CONCLUSION: Mild hazy opacity remains in both lung bases and possible slight right lung base consolidation. Electronically signed by: Rica Simmons MD 12/22/2017 10:55 AM EDT
[2017-12-22 11:04] LABS: Hemoglobin A1c 5.7 % (4.3-6.0)
[2017-12-22] MEDS: HYDROmorphone PF Inj 2 MG/ML Vial IV.PUSH PRN ×2 (14:13→18:18)
[2017-12-22 14:46] LABS: Bacteria,Urine Rare /hpf; Bilirubin,Urine Negative (Negative); Clarity,Urine Hazy (Clear); Color,Urine Yellow (Yellw/Straw); Glucose,Urine (UA) Negative (Negative); Leukocyte Esterase,Urine Trace (Negative); Mucus,Urine Few /lpf (Occasional); Nitrite,Urine Negative (Negative); Specific Gravity,Urine 1.021 (1.002-1.035); Squamous Epithelial Cell,Urine 17 /hpf (0-5); Urobilinogen,Urine 4 or Greater mg/dL (Less than 2)
--- NOTE | 2017-12-22 16:10 | P.PNGI ---
Subjective Interval history: Patient is randomly talking but appears lethargic at times Currently has abdominal distention as well as right upper quadrant and mid upper quadrant abdominal pain Initial admission for acute pancreatitis plan for EGD in a.m. Nausea but no current vomiting, hemoglobin 12.5 Physical Exam Vital signs: Vital Signs 12/21/17 19:45 12/21/17 20:45 12/22/17 00:10 Temperature 98.4 F Pulse Rate 78 80 74 Respiratory Rate 14 19 18 Blood Pressure 105/60 Pulse Oximetry 95 12/22/17 00:15 12/22/17 02:49 12/22/17 04:55 Temperature 97.9 F Pulse Rate 101 H 78 Respiratory Rate 20 14 16 Blood Pressure 110/62 Pulse Oximetry 96 12/22/17 06:30 12/22/17 08:00 12/22/17 08:42 Temperature 98.9 F 98.9 F Pulse Rate 105 H 77 105 H Respiratory Rate 20 12 15 Blood Pressure 106/66 118/53 L Pulse Oximetry 94 L 94 L 12/22/17 08:43 12/22/17 12:00 Temperature 99.0 F Pulse Rate 78 Respiratory Rate 16 Blood Pressure 104/61 Pulse Oximetry 94 L 94 L Intake & Output 12/21/17 12/22/17 12/22/17 18:59 06:59 18:59 Intake Total 50 / 50 3100 / 3100 100 / 100 Balance 50 / 50 3100 / 3100 100 / 100 Weight 120 kg Intake: IV 50 / 50 250 / 250 100 / 100 Zosyn 3.375 GM Premix 50 ML @ 50 / 50 50 / 50 100 mls/hr IV.SIG Q8H CAROL ANN Rx#: [id number] Zosyn 4.5 GM Premix 4.5 gm In 200 / 200 100 / 100 100 ml @ 200 mls/hr IV.SIG Q6H CAROL ANN Rx#:[id number] Oral 2850 / 2850 Other: # Voids 4 2 Date of Last Bowel Movement 12/16/17 # Bowel Movements 0 - Constitutional mild distress - Routine HEENT Exam Head: Present: normocephalic ENT: Present: mucous membranes moist - Routine Respiratory Exam Present: CTA bilaterally (No obvious shortness of breath) - Routine Cardiovascular Exam Present: RRR - Routine Abdominal Exam Present: soft (Round, soft bowel sounds generalized distention and some tenderness right upper quadrant and mid upper quadrant) - Routine Skin Exam Present: intact - Routine Neurological Exam Present: alert (Answers simple questions but does appear drowsy at times) Results - Labs CBC & Chem 7: 12/22/17 05:54 12/22/17 05:54 Laboratory Results - last 24 hr 12/22/17 12/22/17 12/22/17 05:54 05:54 05:54 WBC 12.3 H RBC 4.11 Hgb 12.5 Hct 37.3 MCV 90.8 MCH 30.3 MCHC 33.4 RDW 16.6 Plt Count 159 MPV 10.2 Prelim Diff (Auto) Slide review pending Neut % (Auto) 79.5 H Lymph % (Auto) 8.5 L [place] % (Auto) 10.6 H Eos % (Auto) 0.9 Baso % (Auto) 0.5 Neut # (Auto) 9.8 H Lymph # (Auto) 1.0 [place] # (Auto) 1.3 H Eos # (Auto) 0.1 Baso # (Auto) 0.1 WBC Differential . Diff Scan Auto diff confirmed Differential Comment . PT 10.6 INR 1.0 Sodium Potassium Chloride Carbon Dioxide Anion Gap BUN Creatinine Estimated GFR Random Glucose Hemoglobin A1c 5.7 Calcium Phosphorus Magnesium Total Bilirubin AST ALT Alkaline Phosphatase Total Protein Albumin Amylase Lipase TSH Free T4 Urine Color Urine Clarity Urine pH Ur Specific [place] Urine Protein Urine Glucose (UA) Urine Ketones Urine Occult Blood Urine Nitrate Urine Bilirubin Urine Urobilinogen Ur Leukocyte Esterase Urine RBC Urine WBC Ur Squamous Epith Cells Urine Bacteria Urine Mucus Micro UA Comment Urine Culture Comments 12/22/17 12/22/17 12/22/17 05:54 05:54 14:26 WBC RBC Hgb Hct MCV MCH MCHC RDW Plt Count MPV Prelim Diff (Auto) Neut % (Auto) Lymph % (Auto) [place] % (Auto) Eos % (Auto) Baso % (Auto) Neut # (Auto) Lymph # (Auto) [place] # (Auto) Eos # (Auto) Baso # (Auto) WBC Differential Diff Scan Differential Comment PT INR Sodium 141 Potassium 3.7 Chloride 108 H Carbon Dioxide 27.1 Anion Gap 6 BUN 9 Creatinine 0.78 Estimated GFR 76 L Random Glucose 101 Hemoglobin A1c Calcium 8.5 Phosphorus 3.2 Magnesium 2.0 Total Bilirubin 0.4 AST 24 ALT 43 Alkaline Phosphatase 121 H Total Protein 7.0 Albumin 2.2 L Amylase Cancelled 15 L Lipase Cancelled 91 TSH 7.890 H Free T4 Cancelled 1.08 Urine Color Yellow Urine Clarity Hazy H Urine pH 6.0 Ur Specific [place] 1.021 Urine Protein Negative Urine Glucose (UA) Negative Urine Ketones Negative Urine Occult Blood Negative Urine Nitrate Negative Urine Bilirubin Negative Urine Urobilinogen 4 or greater Ur Leukocyte Esterase Trace H Urine RBC 5 H Urine WBC 5 Ur Squamous Epith Cells 17 Urine Bacteria Rare H Urine Mucus Few H Micro UA Comment Culture not ind Urine Culture Comments Culture not ind Microbiology 12/19/17 21:00 Sputum - Expectorated Sputum Gram Stain - Final 12/19/17 21:00 Sputum - Expectorated Sputum Sputum Culture - Final Heavy growth normal respiratory naresh - Imaging Impressions Bile Acid Absorption NM 12/21/17 13:00 CONCLUSION: 1. No cystic duct or common duct obstruction 2. Moderate gastroenteric reflux with CCK. Chest X-Ray 12/22/17 00:00 CONCLUSION: Mild hazy opacity remains in both lung bases and possible slight right lung base consolidation. Assessment and Plan (1) Pancreatitis Status: Acute Code(s): K85.90 - Acute pancreatitis without necrosis or infection, unspecified - Plan - Acute pancreatitis with elevated LFTs [id number] AST-341 ALT-272 Alk phos-[address] abdomen and pelvis W IV contrast --> Ct findings characteristic of an acute pancreatitis with peripancreatic inflammatory changes Pt complaining of epigastric pain that came on suddenly last night, described as burning, constant. Associated nausea and vomiting, denies hematemesis and coffee ground emesis. Denies history of pancreatitis. Unsure of family history of pancreatic issues , states his mother has 1/3 of her stomach. Denies ETOH, illicit drug use. Only new medication is Atrovent, denies any other OTC or prescription medications. Denies previous cholecystectomy. Denies history of liver issues, tattoos, history of IV drug use, high risk sexual behaviors. (12/17) Able to obtain more history today, pt was vomiting and minimally answering questions yesterday. Does report occasional ETOH, states had half a beer last Saturday and prior to that a lola two months ago. She is concerned that she takes multiple pain medications and this could be a factor, (Tizanidine, Percocet, Morphine, Opana, Cymbalta, Xarelto). Reviewed these medications and do not see any as causative factor for pancreatitis. So far MRCP negative for CBD stones (although possibility of passed a stone or sludge), US negative for cholelithiasis. Lipid panel WNL. Lipase improved significantly today and LFTs trending down. Hepatitis panel negative. Labs pending to rule out auto-immune pancreatitis * Discussed with Dr. Dixon (12/18) Pt still symptomatic today with severe abdominal pain and nausea, will not advance diet at this time. Improvement in lipase. ABG pending. RYLAN pending but IgG 4 WNL. Pain control difficult because pt is on a significant amount of pain medication on a chronic basis (12/19) Continued abdominal pain, rates it a /10. Lipase improving. Possibly start on clear liquids tomorrow depending on how she is feeling. If continued severe pain will consider Dobbhoff for feedings. Repeat CT tomorrow if no improvement. Pt also complaining of SOB, states it has been going on for a long time- will obtain pulmonology consult to further evaluate ( 12/20/17) Persistent abd pain, not tolerating diet, still with nausea and pain aggravated by eating Lipase normal, LFTs marked improvement, just slight elevation in AlP (12/21/17) Still with significant pain Abdomen/Pelvis CT 12/20/17 00:00 1. Induration around the pancreas consistent with acute pancreatitis. These findings were present previously and appear unchanged. 2. Areas of consolidation or atelectasis at the lower lungs bilaterally. This finding is worse on the right. This has progressed. 12/22/2017, patient is drowsy but responds to verbal stimuli but appears to be a fair to poor historian. Follow-up HIDA scan showed no obstruction but moderate reflux with CCK. Lipase level 830 and gradual trend back to normal range. Pancreatitis probably due to gallstones patient also has gallbladder polyp and biliary dyskinesia. Spoke to patient in depth about the need for general surgery consult and possible cholecystectomy. Answered all questions and supportive care given. Will maintain patient on full liquids for now and still plan for EGD in a.m. Plan: Consent for EGD a.m. Monitor labs with special attention to hemoglobin NPO Saturday MN Anti-emetics, hydration Pepcid Supportive care General surgery consult for gallbladder disease evaluate for any surgical needs Patient was seen per myself and Dr. Mckeon, this note was written on his behalf (1) Pancreatitis Qualifiers: Chronicity: acute Pancreatitis type: unspecified pancreatitis type Acute pancreatitis complication: unspecified Qualified Code(s): K85.90 - Acute pancreatitis without necrosis or infection, unspecified
[2017-12-23] MEDS: Heparin - SQ 10,000 UNITS/ML Vial SQ SCH ×3 (00:48→18:18)
[2017-12-23] MEDS: Piperacil/Tazo 4.5 GM Premix 4.5 GM/100 ML BAG IV.SIG SCH ×5 (00:50→20:25)
[2017-12-23] MEDS: oxyCODONE/Acetaminophen 10/325 Tablet PO PRN ×4 (00:51→20:27)
[2017-12-23 09:35] LABS: Hematocrit 36.2 % (35.0-46.0); Hemoglobin 11.8 gm/dL (11.6-15.3); Mean Corpuscular HGB Conc 32.7 % (32.0-36.0); Mean Corpuscular Hemoglobin 29.4 pg (27.0-34.0); Mean Corpuscular Volume 89.9 fL (80.0-100.0); Mean Platelet Volume 9.8 fL (7.0-11.0); Platelet Count 194 th/mm3 (150-450); Red Blood Count 4.03 mil/mm3 (4.00-5.30); Red Cell Distribution Width 16.4 % (11.6-17.2); White Blood Count 8.7 th/mm3 (4.0-11.0)
[2017-12-23 10:04] LABS: Albumin 2.1 g/dL (3.4-5.0); Anion Gap 8 meq/L (5-15); Aspartate Aminotransferase 25 U/L (15-37); Blood Urea Nitrogen 7 mg/dL (7-18); Carbon Dioxide 26.1 meq/L (21.0-32.0); Chloride 105 meq/L (98-107); Glomerular Filtration Rate Greater Than 89 mL/min (>89); Glucose,Random 75 mg/dL (74-106); Magnesium 2.2 mg/dL (1.5-2.5); Potassium 3.7 meq/L (3.5-5.1); Sodium 139 meq/L (136-145)
[2017-12-23 10:05] LABS: Alanine Aminotransferase 40 U/L (10-53); Phosphorus 3.9 mg/dL (2.5-4.9)
[2017-12-23 10:08] LABS: Alkaline Phosphatase 125 U/L (45-117)
--- NOTE | 2017-12-23 10:48 | GIPROC ---
[facility] [address] [facility]. [facility], [id number] EGD PROCEDURE REPORT EXAM DATE: 12/23/2017 PATIENT NAME: Parisa Carrington MR #: [id number] BIRTHDATE: 1960 ATTENDING: Stas Gonzalez MD ORDER #: [id number] CHIEF CREDIT OFFICER: Deanna Hicks STATUS: inpatient INDICATIONS: The patient is a 57 yr old female here for an EGD due to epigastric abdominal pain PROCEDURE PERFORMED: EGD w/ biopsy MEDICATIONS: None and Per Anesthesia. TOPICAL ANESTHETIC: CONSENT: The patient understands the risks and benefits of the procedure and understands that these risks include, but are not limited to: sedation, allergic reaction, infection, perforation and/or bleeding. Alternative means of evaluation and treatment include, among others: physical exam, x-rays, and/or surgical intervention. The patient elects to proceed with this endoscopic procedure. medical equipment was checked for proper function. Hand hygiene and appropriate measures for infection prevention was taken. After the risks, benefits and alternatives of the procedure were thoroughly explained, Informed consent was verified, confirmed and timeout was successfully executed by the treatment team. The patient was anesthetized with topical anesthesia and the [employer] [id number] endoscope was introduced through the mouth and advanced to the second portion of the duodenum. Retroflexed views revealed a hiatal hernia The gastroscope was then slowly withdrawn and removed. ESOPHAGUS: There was LA Class A esophagitis noted. STOMACH: There was erythematous moderate gastritis in the gastric antrum. A biopsy was performed using cold forceps. Sample sent for histology. DUODENUM: Moderate duodenal inflammation was found in the bulb and second portion of the duodenum. ADVERSE EVENTS: There were no complications. IMPRESSIONS: 1. There was LA Class A esophagitis noted 2. There was erythematous gastritis in the gastric antrum; biopsy was performed 3. Duodenal inflammation was found in the bulb and second portion of the duodenum 4. Retroflexed views revealed a hiatal hernia RECOMMENDATIONS: 1. Await biopsy results. Biopsy results will not be ready for 7-10 days. If you don't hear from us in two weeks, call our office for biopsy results. 2. Anti-reflux regimen 3. Continue PPI PATIENT CONDITION: stable DISPOSITION: Inpatient REPEAT EXAM: Return 3 months EGD pending biopsy results Stas Gonzalez MD eSigned: Stas Gonzalez MD 12/23/2017 10:48 AM cc: PATIENT NAME: Parisa Carrington MR#: [id number]
[2017-12-23] MEDS: guaiFENesin 600 MG ER Tablet PO SCH ×2 (11:50→20:27)
[2017-12-23] MEDS: Famotidine PF Inj 20 MG/2 ML Vial IV.PUSH SCH (11:51)
[2017-12-23] MEDS: Tiotropium Bromide 18 MCG/ACT Inhaler INH SCH (11:55)
[2017-12-23] MEDS: Budesonide-Formoterol 160/4.5 MCG 6 GM Inhaler INH SCH ×2 (11:55→20:29)
[2017-12-23] MEDS: Morphine Sulfate 30 MG SR Tablet PO SCH ×2 (11:56→20:27)
[2017-12-23] MEDS ORDERED: Lidocaine PF 1% Inj 5 ML Syringe INFILTRATN ONE (12:00)
[2017-12-23] MEDS ORDERED: Pantoprazole Inj 40 MG Vial IV.PUSH ONE (15:00)
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
--- NOTE | 2017-12-23 16:06 | P.PN ---
Subjective Interval history: Follow-up on patient with acute pancreatitis. Patient seen and examined. s/p EGD earlier today showing esophagitis and gastritis. Patient complaining of severe diffuse abdominal pain and persistent nausea. States she has not had a bowel movement in 8 days. She denies any fever or chills. Complains that her "lungs hurt". She denies any chest pain or shortness of breath. She denies any dysuria. Physical Exam Vital signs: Vital Signs 12/22/17 19:00 12/22/17 20:02 12/22/17 20:53 Temperature Pulse Rate 90 Respiratory Rate 12 18 14 Blood Pressure Pulse Oximetry 95 12/22/17 21:45 12/23/17 00:00 12/23/17 01:02 Temperature 98 F 98.6 F Pulse Rate 77 70 78 Respiratory Rate 17 19 16 Blood Pressure 132/60 108/65 Pulse Oximetry 95 96 12/23/17 05:21 12/23/17 05:45 12/23/17 08:00 Temperature 98.8 F 98.4 F Pulse Rate 76 82 80 Respiratory Rate 16 17 20 Blood Pressure 102/57 L 139/60 Pulse Oximetry 96 94 L 12/23/17 11:05 12/23/17 11:07 12/23/17 11:08 Temperature 99.2 F 99.2 F 99.2 F Pulse Rate 70 70 70 Respiratory Rate 16 16 16 Blood Pressure 92/55 L 92/55 L 92/55 L Pulse Oximetry 94 L 94 L 94 L 12/23/17 12:00 12/23/17 14:39 Temperature 98.9 F Pulse Rate 77 Respiratory Rate 20 18 Blood Pressure 144/59 H Pulse Oximetry 92 L Intake & Output 12/22/17 12/23/17 12/23/17 18:59 06:59 18:59 Intake Total 200 / 200 2400 / 2400 350 / 350 Balance 200 / 200 2400 / 2400 350 / 350 Weight 120.5 kg Intake: IV 200 / 200 200 / 200 100 / 100 Zosyn 4.5 GM Premix 4.5 gm In 200 / 200 200 / 200 100 / 100 100 ml @ 200 mls/hr IV.SIG Q6H CAROL ANN Rx#:[id number] Oral 2200 / 2200 Anesthesia Amount 250 / 250 Other: # Voids 5 3 # Bowel Movements 0 Narrative: GENERAL: This is a well-developed, well-nourished female INAD. Awake and alert. SKIN: Warm and dry. No generalized rash. HEENT: Atraumatic, normocephalic. EOMI. Sclera anicteric. No nasal drainage noted. Airway patent. CARDIOVASCULAR: Regular rate and rhythm without murmurs, gallops, or rubs. RESPIRATORY: Fair air entry bilaterally, poor effort. Clear to auscultation. No accessory muscle use. GASTROINTESTINAL: Abdomen soft, tender abdomen diffusely but moreso over epigastric area, + distended MUSCULOSKELETAL: No cyanosis or edema. Bilateral calves supple and nontender. NEURO: Awake. CN II-XII grossly intact. Able to move all extremities spontaneously. No focal neurological deficits. Normal speech. PSYCHIATRIC: Calm and cooperative. Results - Labs CBC & Chem 7: 12/23/17 07:13 12/23/17 07:13 Laboratory Results - last 24 hr 12/23/17 12/23/17 12/23/17 07:13 07:13 13:34 WBC 8.7 RBC 4.03 Hgb 11.8 Hct 36.2 MCV 89.9 MCH 29.4 MCHC 32.7 RDW 16.4 Plt Count 194 MPV 9.8 Sodium 139 Potassium 3.7 Chloride 105 Carbon Dioxide 26.1 Anion Gap 8 BUN 7 Creatinine 0.68 Estimated GFR Greater than 89 Random Glucose 75 Calcium 9.0 Phosphorus 3.9 Magnesium 2.2 Total Bilirubin 0.4 AST 25 ALT 40 Alkaline Phosphatase 125 H Troponin I B-Natriuretic Peptide Total Protein 7.0 Albumin 2.1 L Amylase Lipase 113 12/23/17 12/23/17 12/23/17 13:34 13:34 13:34 WBC RBC Hgb Hct MCV MCH MCHC RDW Plt Count MPV Sodium Potassium Chloride Carbon Dioxide Anion Gap BUN Creatinine Estimated GFR Random Glucose Calcium Phosphorus Magnesium Total Bilirubin AST ALT Alkaline Phosphatase Troponin I Less than 0.02 L B-Natriuretic Peptide 108 H Total Protein Albumin Amylase 20 L Lipase - Imaging Cholangiopancreatography MRI 12/16/17 00:00 CONCLUSION: 1. The head of the pancreas is enlarged with diffuse inflammatory change consistent with the history of pancreatitis. 2. Small apparent gallbladder wall polyp again noted with no definite evidence of cholelithiasis. No filling defect in common bile duct which is at the upper limits of normal in size. Abdomen/Pelvis CT 12/16/17 05:17 CONCLUSION: 1. CT findings characteristic of an acute pancreatitis with peripancreatic inflammatory changes. 2. Patchy airspace disease posterior laterally in the right base. Diagnostic considerations include atelectasis or early infiltrate Gallbladder Ultrasound 12/16/17 08:46 CONCLUSION: 1. No evidence of cholelithiasis. There is a small nonmobile echogenic structure along the gallbladder wall which could represent a small polyp. There is no gallbladder wall thickening or biliary obstruction. 2. Limited visualization of pancreas. The head appeared grossly unremarkable. Chest X-Ray 12/18/17 06:00 CONCLUSION: Right lung base opacity is present may be due to a combination of consolidation and or pleural effusion and left lung base consolidation not present previously. Chest CTA 12/19/17 00:00 CONCLUSION: Venous Doppler Study 12/19/17 00:00 CONCLUSION: 1. No evidence of deep venous thrombosis. 2. Small Beth's cyst in the right popliteal fossa. Abdomen/Pelvis CT 12/20/17 00:00 CONCLUSION: 1. Induration around the pancreas consistent with acute pancreatitis. These findings were present previously and appear unchanged. 2. Areas of consolidation or atelectasis at the lower lungs bilaterally. This finding is worse on the right. This has progressed. Bile Acid Absorption NM 12/21/17 13:00 CONCLUSION: 1. No cystic duct or common duct obstruction 2. Moderate gastroenteric reflux with CCK. Chest X-Ray 12/22/17 00:00 CONCLUSION: Mild hazy opacity remains in both lung bases and possible slight right lung base consolidation. Assessment and Plan - Plan 57-year-old female admitted secondary to acute pancreatitis Abdominal pain, persistent Acute Severe pancreatitis HIDA scan negative GI following, s/p EGD this am showing gastritis and esophagitis. Complaining of increased abdominal pain. Discussed with GI service, CT scan ordered. Repeat amylase and lipase levels within normal limits. GS following, appreciate assistance. Recommends repeat imaging in 6-8 months for reevaluation of gallbladder polyp. No surgical intervention at this time. Advance diet-PER GI, currently on clear liquid diet. Not tolerating po well. May require Dobbhoff/tube feeds. Continue on IV fluids Continue on IV antiemetics prn Start on PPI Leukocytosis, resolved UA unremarkable Patient is afebrile monitor white count monitor clinically Acute kidney injury, resolved Follow renal function Acute liver injury, resolved Hepatitis profile negative Continue to follow LFTs History of left leg DVT previously on Xarelto US negative for DVT NO PE NOTED ON CTA Xarelto discontinued History of lung masses PNA CT chest showed increased density at the lower lobes bilaterally, emphysematous changes in the upper lungs, vague density posterior upper lobes bilaterally likely related to atelectasis, mild right pleural effusion On IV Zosyn, transition to po when better able to tolerate IS and acapella at bedside continue on Duonebs COPD, not in acute exacerbation Continue Spiriva Continue inhaled corticosteroid Continue supplemental oxygen as needed Continue to monitor respiratory status Generalized deconditioning Continue participation with PT, home with home health PT versus rehab recommended Constipation, patient reports no bowel movement since prior to admission Start Pericolace scheduled Give Miralax x 1 dose monitor for BM DVT prophylaxis Heparin
[2017-12-23] MEDS ORDERED: Diatrizoate Meglum/Diatrizoate Sod Liq 9 ML UDC PO ONE (17:00)
[2017-12-23] MEDS ORDERED: Polyethylene Glycol 3350 17 GM Packet PO ONE (19:00)
[2017-12-23] MEDS ORDERED: Senna/Docusate Sodium 8.6/50 MG Tablet PO ONE (19:00)
[2017-12-23] MEDS: Senna/Docusate Sodium 8.6/50 MG Tablet PO SCH (20:29)
--- NOTE | 2017-12-23 22:07 | P.PNGS ---
Subjective Patient reports: still having pain (diffuse, pain, tolerating clears s/p egd) Physical Exam Vital signs: Vital Signs 12/23/17 00:00 12/23/17 01:02 12/23/17 05:21 Temperature 98.6 F Pulse Rate 70 78 76 Respiratory Rate 19 16 16 Blood Pressure 108/65 Pulse Oximetry 96 12/23/17 05:45 12/23/17 08:00 12/23/17 11:05 Temperature 98.8 F 98.4 F 99.2 F Pulse Rate 82 80 70 Respiratory Rate 17 20 16 Blood Pressure 102/57 L 139/60 92/55 L Pulse Oximetry 96 94 L 94 L 12/23/17 11:07 12/23/17 11:08 12/23/17 12:00 Temperature 99.2 F 99.2 F 98.9 F Pulse Rate 70 70 77 Respiratory Rate 16 16 20 Blood Pressure 92/55 L 92/55 L 144/59 H Pulse Oximetry 94 L 94 L 92 L 12/23/17 14:39 12/23/17 16:00 12/23/17 18:18 Temperature 98.7 F Pulse Rate 69 Respiratory Rate 18 20 18 Blood Pressure 140/60 Pulse Oximetry 95 12/23/17 19:18 12/23/17 20:00 Temperature 97.7 F Pulse Rate 75 Respiratory Rate 18 Blood Pressure 106/62 Pulse Oximetry 95 95 Intake & Output 12/23/17 12/23/17 12/24/17 06:59 18:59 06:59 Intake Total 2400 / 2400 1200 / 1200 Balance 2400 / 2400 1200 / 1200 Weight 120.5 kg Intake: IV 200 / 200 200 / 200 Zosyn 4.5 GM Premix 4.5 gm In 200 / 200 200 / 200 100 ml @ 200 mls/hr IV.SIG Q6H [facility] Rx#:[id number] Oral 2200 / 2200 750 / 750 Anesthesia Amount 250 / 250 Other: # Voids 3 # Bowel Movements 0 - Routine Abdominal Exam Present: soft (+ttp diffuse, no rebound) Assessment and Plan - Plan abdominal pain, acute pancreatitis- resolving HIDA Negative, us +polyp, CT pancreatitis S/P egd- gastritis, eosphagitis, duodenitis PLAN ok for diet unlikely gallbladder etiology await gi recs, may benefit from coloscopy patient with distension- recommend bowel regimen will follow prn, no surgical intervention, removal of gallbladder unlikely improve pain, low likely guerra of stone causing pancreatitis
--- NOTE | 2017-12-23 22:33 | CT ---
EXAM DATE: 12/23/2017 10:00 PM EDT AGE/SEX: 57 years / Female INDICATIONS: Worsening abdominal pain and pancreatitis. CLINICAL DATA: This is the patient's initial encounter. Patient reports that signs and symptoms have been present for 1 day and indicates a pain score of 8/10. MEDICAL/SURGICAL HISTORY: Deep venous thrombosis. Chronic obstructive pulmonary disease. Panc reatitis. None. ORAL CONTRAST: Prescribed oral contrast ingested. RADIATION DOSE: 16.49 CTDI (mGy) COMPARISON: [facility] [place], CT ABDOMEN & PELVIS W CONTRAST, 12/20/2017. . TECHNIQUE: Multiple contiguous axial images were obtained through the abdomen and pelvis following b olus infusion of 68 ml Omnipaque 350 (iohexol) nonionic water-soluble contrast as a single exam dos e. Prescribed oral contrast ingested. Using automated exposure control and adjustment of the mA and/ or kV according to patient size, radiation dose was kept as low as reasonably achievable to obtain op timal diagnostic quality images. DICOM format image data is available electronically for review and comparison. FINDINGS: Comparison is December 20. Previous consolidation at the lung bases bilaterally is again noted. No signif icant pleural effusion. No acute findings in the liver, spleen, adrenals or kidneys. Again seen are inflammatory or edematous changes around the pancreas characteristic of acute pancreatitis. Findings are similar to December 20. No pelvic masses or free fluid. No adenopathy. Previous fusion of the lumbar spine inferiorly. CONCLUSION: 1. Acute pancreatitis with findings similar to December 20. 2. Basilar lung consolidation with findings similar to December 20. Electronically signed by: Duane Lucia MD 12/23/2017 10:31 PM EDT
[2017-12-23] MEDS: LORazepam 1 MG Tablet PO PRN (23:07)
[2017-12-24] MEDS: oxyCODONE/Acetaminophen 10/325 Tablet PO PRN ×4 (00:02→16:39)
[2017-12-24] MEDS: Heparin - SQ 10,000 UNITS/ML Vial SQ SCH ×3 (00:02→17:09)
[2017-12-24] MEDS: Piperacil/Tazo 4.5 GM Premix 4.5 GM/100 ML BAG IV.SIG SCH ×3 (03:22→14:31)
[2017-12-24] MEDS: HYDROmorphone PF Inj 2 MG/ML Vial IV.PUSH PRN ×4 (06:28→21:57)
[2017-12-24] MEDS: Morphine Sulfate 30 MG SR Tablet PO SCH ×2 (08:29→20:18)
[2017-12-24] MEDS: guaiFENesin 600 MG ER Tablet PO SCH ×2 (08:29→20:17)
[2017-12-24] MEDS: Budesonide-Formoterol 160/4.5 MCG 6 GM Inhaler INH SCH ×2 (08:31→20:22)
[2017-12-24] MEDS: Senna/Docusate Sodium 8.6/50 MG Tablet PO SCH ×2 (08:31→20:18)
[2017-12-24] MEDS: Tiotropium Bromide 18 MCG/ACT Inhaler INH SCH (08:31)
--- NOTE | 2017-12-24 09:47 | P.PN ---
Subjective Interval history: Follow-up on patient with acute pancreatitis. Patient seen and examined. Patient able to tolerate clear liquid diet today. She denies any nausea or vomiting. She continues to have shortness of breath and requires 3 L supplemental oxygen. She denies any complaints of chest pain. She still has not had a bowel movement. Repeat CT abd/pelvis showed no change. Physical Exam Vital signs: Vital Signs 12/23/17 11:05 12/23/17 11:07 12/23/17 11:08 Temperature 99.2 F 99.2 F 99.2 F Pulse Rate 70 70 70 Respiratory Rate 16 16 16 Blood Pressure 92/55 L 92/55 L 92/55 L Pulse Oximetry 94 L 94 L 94 L 12/23/17 12:00 12/23/17 14:39 12/23/17 16:00 Temperature 98.9 F 98.7 F Pulse Rate 77 69 Respiratory Rate 20 18 20 Blood Pressure 144/59 H 140/60 Pulse Oximetry 92 L 95 12/23/17 18:18 12/23/17 19:18 12/23/17 20:00 Temperature 97.7 F Pulse Rate 75 Respiratory Rate 18 18 Blood Pressure 106/62 Pulse Oximetry 95 95 12/24/17 00:00 12/24/17 01:43 12/24/17 03:22 Temperature 99.5 F Pulse Rate 73 76 Respiratory Rate 18 18 Blood Pressure 122/73 Pulse Oximetry 94 L 12/24/17 04:00 12/24/17 04:05 12/24/17 07:00 Temperature 98.7 F 99.6 F Pulse Rate 70 72 Respiratory Rate 18 18 14 Blood Pressure 110/66 113/83 Pulse Oximetry 95 12/24/17 09:17 Temperature Pulse Rate Respiratory Rate Blood Pressure Pulse Oximetry 90 L Intake & Output 12/23/17 12/24/17 12/24/17 18:59 06:59 18:59 Intake Total 1200 / 1200 200 / 200 Balance 1200 / 1200 200 / 200 Weight 120.5 kg Intake: IV 200 / 200 200 / 200 Zosyn 4.5 GM Premix 4.5 gm In 200 / 200 200 / 200 100 ml @ 200 mls/hr IV.SIG Q6H [facility] Rx#:[id number] Oral 750 / 750 Anesthesia Amount 250 / 250 Other: # Voids 4 Narrative: GENERAL: This is a well-developed, well-nourished female INAD. Awake and alert. Sitting up in bed eating lunch. SKIN: Warm and dry. No generalized rash. HEENT: Atraumatic, normocephalic. EOMI. Sclera anicteric. No nasal drainage noted. Airway patent. CARDIOVASCULAR: Regular rate and rhythm without murmurs, gallops, or rubs. RESPIRATORY: Fair air entry bilaterally, poor effort. Clear to auscultation. No accessory muscle use. GASTROINTESTINAL: Abdomen soft, tender abdomen diffusely but moreso over epigastric area, + distended MUSCULOSKELETAL: No cyanosis or edema. Bilateral calves supple and nontender. NEURO: Awake. CN II-XII grossly intact. Able to move all extremities spontaneously. No focal neurological deficits. Normal speech. PSYCHIATRIC: Calm and cooperative. Results - Labs CBC & Chem 7: 12/23/17 07:13 12/23/17 07:13 Laboratory Results - last 24 hr 12/23/17 12/23/17 12/23/17 07:13 13:34 13:34 Sodium 139 Potassium 3.7 Chloride 105 Carbon Dioxide 26.1 Anion Gap 8 BUN 7 Creatinine 0.68 Estimated GFR Greater than 89 Random Glucose 75 Calcium 9.0 Phosphorus 3.9 Magnesium 2.2 Total Bilirubin 0.4 AST 25 ALT 40 Alkaline Phosphatase 125 H Troponin I B-Natriuretic Peptide Total Protein 7.0 Albumin 2.1 L Amylase 20 L Lipase 113 12/23/17 12/23/17 13:34 13:34 Sodium Potassium Chloride Carbon Dioxide Anion Gap BUN Creatinine Estimated GFR Random Glucose Calcium Phosphorus Magnesium Total Bilirubin AST ALT Alkaline Phosphatase Troponin I Less than 0.02 L B-Natriuretic Peptide 108 H Total Protein Albumin Amylase Lipase - Imaging Impressions Abdomen/Pelvis CT 12/23/17 00:00 CONCLUSION: 1. Acute pancreatitis with findings similar to December 20. 2. Basilar lung consolidation with findings similar to December 20. Assessment and Plan - Plan 57-year-old female admitted secondary to acute pancreatitis Abdominal pain, persistent Acute Severe pancreatitis, uncertain etiology HIDA scan negative GI following, s/p EGD this am showing gastritis and esophagitis. Complaining of increased abdominal pain after EGD. Repeat CT abd/pelvis with no change. Repeat amylase and lipase levels within normal limits. GS following, appreciate assistance. Recommends repeat imaging in 6-8 months for reevaluation of gallbladder polyp. No surgical intervention at this time. Advance diet-PER GI, currently tolerating clear liquid diet. Continue to advance. Continue on IV fluids Continue on IV antiemetics prn Continue on PPI Leukocytosis, resolved UA unremarkable Patient is afebrile monitor white count monitor clinically Acute kidney injury, resolved Follow renal function Acute liver injury, resolved Hepatitis profile negative Continue to follow LFTs History of left leg DVT previously on Xarelto US negative for DVT NO PE NOTED ON CTA Xarelto discontinued History of lung masses PNA CT chest showed increased density at the lower lobes bilaterally, emphysematous changes in the upper lungs, vague density posterior upper lobes bilaterally likely related to atelectasis, mild right pleural effusion Discontinue IV Zosyn, changed to oral Levaquin IS and acapella at bedside continue on Duonebs COPD, not in acute exacerbation Continue Spiriva Continue inhaled corticosteroid Continue supplemental oxygen as needed Continue to monitor respiratory status Generalized deconditioning Continue participation with PT, home with home health PT versus rehab recommended Constipation, patient reports no bowel movement since prior to admission continue Pericolace scheduled Miralax daily Dulcolax suppository prn monitor for BM DVT prophylaxis Heparin Discussed Condition With: patient, nursing staff, Dr. Perrin Discharge Planning: Discharge pending GI and general surgery clearance and ability to tolerate diet.
--- NOTE | 2017-12-24 11:41 | P.PNGI ---
Subjective Interval history: Pt resting in bed, talking on the phone, in no apparent distress. She reports "maybe a tiny bit of improvement in pain". Was able to eat most of her breakfast this morning. Denies nausea and vomiting. No BM yet. <OdetteluciChary - Last Filed: 12/24/17 11:34> Physical Exam Vital signs: Vital Signs 12/23/17 12:00 12/23/17 14:39 12/23/17 16:00 Temperature 98.9 F 98.7 F Pulse Rate 77 69 Respiratory Rate 20 18 20 Blood Pressure 144/59 H 140/60 Pulse Oximetry 92 L 95 12/23/17 18:18 12/23/17 19:18 12/23/17 20:00 Temperature 97.7 F Pulse Rate 75 Respiratory Rate 18 18 Blood Pressure 106/62 Pulse Oximetry 95 95 12/24/17 00:00 12/24/17 01:43 12/24/17 03:22 Temperature 99.5 F Pulse Rate 73 76 Respiratory Rate 18 18 Blood Pressure 122/73 Pulse Oximetry 94 L 12/24/17 04:00 12/24/17 04:05 12/24/17 07:00 Temperature 98.7 F 99.6 F Pulse Rate 70 72 Respiratory Rate 18 18 14 Blood Pressure 110/66 113/83 Pulse Oximetry 95 12/24/17 09:00 12/24/17 09:17 Temperature Pulse Rate 72 Respiratory Rate Blood Pressure Pulse Oximetry 90 L Intake & Output 12/23/17 12/24/17 12/24/17 18:59 06:59 18:59 Intake Total 1200 / 1200 200 / 200 100 / 100 Balance 1200 / 1200 200 / 200 100 / 100 Weight 120.5 kg Intake: IV 200 / 200 200 / 200 100 / 100 Zosyn 4.5 GM Premix 4.5 gm In 200 / 200 200 / 200 100 / 100 100 ml @ 200 mls/hr IV.SIG Q6H [facility] Rx#:[id number] Oral 750 / 750 Anesthesia Amount 250 / 250 Other: # Voids 4 - Constitutional no acute distress - Routine HEENT Exam Head: Present: normocephalic, atraumatic - Routine Respiratory Exam Absent: accessory muscle use - Routine Cardiovascular Exam Present: RRR - Routine Abdominal Exam Present: soft, normoactive bowel sounds, tenderness. Absent: distended - Routine Skin Exam Present: dry, warm - Routine Neurological Exam Present: alert, oriented X3 <Chary Jarquin - Last Filed: 12/24/17 11:34> Vital signs: Vital Signs 12/23/17 16:00 12/23/17 18:18 12/23/17 19:18 Temperature 98.7 F Pulse Rate 69 Respiratory Rate 20 18 Blood Pressure 140/60 Pulse Oximetry 95 95 12/23/17 20:00 12/24/17 00:00 12/24/17 01:43 Temperature 97.7 F 99.5 F Pulse Rate 75 73 76 Respiratory Rate 18 18 Blood Pressure 106/62 122/73 Pulse Oximetry 95 94 L 12/24/17 03:22 12/24/17 04:00 12/24/17 04:05 Temperature 98.7 F Pulse Rate 70 Respiratory Rate 18 18 18 Blood Pressure 110/66 Pulse Oximetry 95 12/24/17 07:00 12/24/17 09:00 12/24/17 09:17 Temperature 99.6 F Pulse Rate 72 72 Respiratory Rate 14 Blood Pressure 113/83 Pulse Oximetry 90 L 12/24/17 12:00 Temperature 98.8 F Pulse Rate 70 Respiratory Rate 17 Blood Pressure 106/56 L Pulse Oximetry 93 L Intake & Output 12/23/17 12/24/17 12/24/17 18:59 06:59 18:59 Intake Total 1200 / 1200 200 / 200 100 / 100 Balance 1200 / 1200 200 / 200 100 / 100 Weight 120.5 kg Intake: IV 200 / 200 200 / 200 100 / 100 Zosyn 4.5 GM Premix 4.5 gm In 200 / 200 200 / 200 100 / 100 100 ml @ 200 mls/hr IV.SIG Q6H [facility] Rx#:[id number] Oral 750 / 750 Anesthesia Amount 250 / 250 Other: # Voids 4 <Stas Gonzalez - Last Filed: 12/24/17 15:05> Results - Labs CBC & Chem 7: 12/23/17 07:13 12/23/17 07:13 Laboratory Results - last 24 hr 12/23/17 12/23/17 12/23/17 13:34 13:34 13:34 Troponin I B-Natriuretic Peptide 108 H Amylase 20 L Lipase 113 12/23/17 13:34 Troponin I Less than 0.02 L B-Natriuretic Peptide Amylase Lipase - Imaging Impressions Abdomen/Pelvis CT 12/23/17 00:00 CONCLUSION: 1. Acute pancreatitis with findings similar to December 20. 2. Basilar lung consolidation with findings similar to December 20. <Reinaldo Jarquinsey - Last Filed: 12/24/17 11:34> - Labs CBC & Chem 7: 12/23/17 07:13 12/23/17 07:13 - Imaging Impressions Abdomen/Pelvis CT 12/23/17 00:00 CONCLUSION: 1. Acute pancreatitis with findings similar to December 20. 2. Basilar lung consolidation with findings similar to December 20. <CarlosStas meade - Last Filed: 12/24/17 15:05> Assessment and Plan (1) Pancreatitis Status: Acute Code(s): K85.90 - Acute pancreatitis without necrosis or infection, unspecified - Plan - Acute pancreatitis with elevated LFTs [id number] AST-341 ALT-272 Alk phos-[address] abdomen and pelvis W IV contrast --> Ct findings characteristic of an acute pancreatitis with peripancreatic inflammatory changes Pt complaining of epigastric pain that came on suddenly last night, described as burning, constant. Associated nausea and vomiting, denies hematemesis and coffee ground emesis. Denies history of pancreatitis. Unsure of family history of pancreatic issues , states his mother has 1/3 of her stomach. Only new medication is Atrovent, denies any other OTC or prescription medications. Denies history of liver issues, tattoos, history of IV drug use, high risk sexual behaviors. Does report occasional ETOH, states had half a beer last Saturday and prior to that a lola two months ago. She is concerned that she takes multiple pain medications and this could be a factor, (Tizanidine, Percocet, Morphine, Opana, Cymbalta, Xarelto). Reviewed these medications and do not see any as causative factor for pancreatitis. So far MRCP negative for CBD stones (although possibility of passed a stone or sludge), US negative for cholelithiasis. Lipid panel WNL. Labs ruled out autoimmune pancreatitis EGD (12/23) --> There was LA Class A esophagitis noted. There was erythematous gastritis in the gastric antrum; biopsy was performed. Duodenal inflammation was found in the bulb and second portion of the duodenum. Hiatal hernia (12/24) Pt with continued abdominal pain, states possibly some mild improvement. Was able to eat most of her breakfast this morning. Denies nausea and vomiting. States does not want to go home in this much pain. Per nurse yesterday pt was complaining of excruciating pain after EGD and therefore a repeat CT scan was ordered which showed no significant changes. Pt has had no BM however she states she just began eating last night. Seen by GS who states gallbladder is unlikely the etiology for the pancreatitis and low likelihood of stone cause pancreatitis, no plans for surgical intervention Plan: If no BM now that diet is advanced, pt would benefit from Relistor Pain management difficult due to amount of pain meds pt was taking outpatient Continue with diet as tolerated Further recommendations to follow Patient has been seen and examined by myself and Dr. Gonzalez and this note is written on his behalf <Chary Jarquin - Last Filed: 12/24/17 11:34> (1) Pancreatitis Status: Acute Code(s): K85.90 - Acute pancreatitis without necrosis or infection, unspecified - Plan Seen and examined in the presence of . Still with pain although tolerating po liquids. Wants to see a rubber roller grinder. Advance to low fat diet tomorrow. - Attending Attestation The exam, history, and the medical decision-making described in the above note were completed with the assistance of the mid-level provider. I reviewed and agree with the findings presented. I attest that I had a [id number] encounter with the patient on the same day, and personally performed and documented my assessment and findings in the medical record. <Stas Gonzalez - Last Filed: 12/24/17 15:05> <Chary Jarquin - Last Filed: 12/24/17 11:34> (1) Pancreatitis Qualifiers: Chronicity: acute Pancreatitis type: unspecified pancreatitis type Acute pancreatitis complication: unspecified Qualified Code(s): K85.90 - Acute pancreatitis without necrosis or infection, unspecified <Stas Gonzalez - Last Filed: 12/24/17 15:05> (1) Pancreatitis Qualifiers: Chronicity: acute Pancreatitis type: unspecified pancreatitis type Acute pancreatitis complication: unspecified Qualified Code(s): K85.90 - Acute pancreatitis without necrosis or infection, unspecified
[2017-12-24] MEDS: Polyethylene Glycol 3350 17 GM Packet PO SCH (14:31)
[2017-12-24] MEDS ORDERED: Bisacodyl 10 MG Supp RECTAL PRN (17:08)
[2017-12-25] MEDS: HYDROmorphone PF Inj 2 MG/ML Vial IV.PUSH PRN ×3 (00:38→05:59)
[2017-12-25] MEDS: Heparin - SQ 10,000 UNITS/ML Vial SQ SCH ×3 (00:39→17:33)
--- NOTE | 2017-12-25 07:41 | P.PN ---
Subjective Interval history: Follow-up on patient with acute pancreatitis. Patient seen and examined. Patient is complaining of bilateral abdominal cramping and a sensation of a "bubble" in her belly. She believes this is from her Atrovent inhaler. She has had a bowel movement. She is able tolerate soft diet. She denies any nausea or vomiting. She denies any fever or chills. She continues to have shortness of breath. Denies any complaints of chest pain. She states she is urinating without any difficulties. Discussed with GI who states patient is cleared for discharge. Patient is refusing discharge. She has requested an appeal. Physical Exam Vital signs: Vital Signs 12/24/17 09:00 12/24/17 09:17 12/24/17 12:00 Temperature 98.8 F Pulse Rate 72 70 Respiratory Rate 17 Blood Pressure 106/56 L Pulse Oximetry 90 L 93 L 12/24/17 15:00 12/24/17 16:00 12/24/17 17:08 Temperature 98.1 F Pulse Rate 63 Respiratory Rate 16 18 14 Blood Pressure 100/61 Pulse Oximetry 91 L 12/24/17 17:32 12/24/17 19:00 12/24/17 20:00 Temperature Pulse Rate 60 Respiratory Rate 15 18 Blood Pressure 98/57 L Pulse Oximetry 93 L 94 L 12/24/17 21:56 12/25/17 00:00 12/25/17 01:14 Temperature 98.1 F Pulse Rate 69 80 Respiratory Rate 18 Blood Pressure 105/68 98/55 L Pulse Oximetry 95 12/25/17 01:21 12/25/17 03:09 12/25/17 04:00 Temperature 98.1 F Pulse Rate 68 Respiratory Rate 18 18 Blood Pressure 100/58 L Pulse Oximetry 96 96 12/25/17 07:00 Temperature 98.7 F Pulse Rate 71 Respiratory Rate 16 Blood Pressure 98/54 L Pulse Oximetry 90 L Intake & Output 12/24/17 12/25/17 12/25/17 18:59 06:59 18:59 Intake Total 1700 / 1700 Output Total 200 / 200 Balance 1500 / 1500 Weight 120.5 kg Intake: IV 200 / 200 Zosyn 4.5 GM Premix 4.5 gm In 200 / 200 100 ml @ 200 mls/hr IV.SIG Q6H [facility] Rx#:[id number] Oral 1000 / 1000 Anesthesia Amount 500 / 500 Output: Urine 200 / 200 Other: # Voids 4 3 Date of Last Bowel Movement 12/16/17 12/24/17 # Bowel Movements 0 3 Narrative: GENERAL: This is a well-developed, well-nourished female INAD. Awake and alert. Getting out of bed without any difficulty. SKIN: Warm and dry. No generalized rash. HEENT: Atraumatic, normocephalic. EOMI. Sclera anicteric. No nasal drainage noted. Airway patent. CARDIOVASCULAR: Regular rate and rhythm without murmurs, gallops, or rubs. RESPIRATORY: Fair air entry bilaterally, poor effort. Clear to auscultation. No accessory muscle use. GASTROINTESTINAL: Abdomen soft, nondistended. Subjectively tender diffusely. MUSCULOSKELETAL: No cyanosis or edema. Bilateral calves supple and nontender. NEURO: Awake. CN II-XII grossly intact. Able to move all extremities spontaneously. No focal neurological deficits. Normal speech. PSYCHIATRIC: Calm and cooperative. Results - Labs CBC & Chem 7: 12/23/17 07:13 12/23/17 07:13 - Imaging Cholangiopancreatography MRI 12/16/17 00:00 CONCLUSION: 1. The head of the pancreas is enlarged with diffuse inflammatory change consistent with the history of pancreatitis. 2. Small apparent gallbladder wall polyp again noted with no definite evidence of cholelithiasis. No filling defect in common bile duct which is at the upper limits of normal in size. Abdomen/Pelvis CT 12/16/17 05:17 CONCLUSION: 1. CT findings characteristic of an acute pancreatitis with peripancreatic inflammatory changes. 2. Patchy airspace disease posterior laterally in the right base. Diagnostic considerations include atelectasis or early infiltrate Gallbladder Ultrasound 12/16/17 08:46 CONCLUSION: 1. No evidence of cholelithiasis. There is a small nonmobile echogenic structure along the gallbladder wall which could represent a small polyp. There is no gallbladder wall thickening or biliary obstruction. 2. Limited visualization of pancreas. The head appeared grossly unremarkable. Chest X-Ray 12/18/17 06:00 CONCLUSION: Right lung base opacity is present may be due to a combination of consolidation and or pleural effusion and left lung base consolidation not present previously. Chest CTA 12/19/17 00:00 CONCLUSION: Venous Doppler Study 12/19/17 00:00 CONCLUSION: 1. No evidence of deep venous thrombosis. 2. Small Beth's cyst in the right popliteal fossa. Abdomen/Pelvis CT 12/20/17 00:00 CONCLUSION: 1. Induration around the pancreas consistent with acute pancreatitis. These findings were present previously and appear unchanged. 2. Areas of consolidation or atelectasis at the lower lungs bilaterally. This finding is worse on the right. This has progressed. Bile Acid Absorption NM 12/21/17 13:00 CONCLUSION: 1. No cystic duct or common duct obstruction 2. Moderate gastroenteric reflux with CCK. Chest X-Ray 12/22/17 00:00 CONCLUSION: Mild hazy opacity remains in both lung bases and possible slight right lung base consolidation. Abdomen/Pelvis CT 12/23/17 00:00 CONCLUSION: 1. Acute pancreatitis with findings similar to December 20. 2. Basilar lung consolidation with findings similar to December 20. Assessment and Plan - Plan 57-year-old female admitted secondary to acute pancreatitis Abdominal pain, persistent Acute Severe pancreatitis, uncertain etiology GI following, s/p EGD this am showing gastritis and esophagitis. Repeat CT abd/ pelvis with no change. Repeat amylase and lipase levels within normal limits. Patient tolerating soft diet. She continues to complain of abdominal cramping and a bubble like sensation. Discussed with GI, patient cleared for discharge may follow-up as outpatient for possible colonoscopy and/or EUS. GS following, appreciate assistance. Recommends repeat imaging in 6-8 months for reevaluation of gallbladder polyp. No surgical intervention at this time. Continue on IV antiemetics prn Continue on PPI Discharge placed. Patient refusing discharge and has requested an appeal. Concern for malingering/possible drug-seeking behavior. Acute kidney injury, resolved Follow renal function Acute liver injury, resolved Hepatitis profile negative Continue to follow LFTs History of left leg DVT previously on Xarelto US negative for DVT NO PE NOTED ON CTA Xarelto discontinued History of lung masses PNA CT chest showed increased density at the lower lobes bilaterally, emphysematous changes in the upper lungs, vague density posterior upper lobes bilaterally likely related to atelectasis, mild right pleural effusion Discontinue IV Zosyn, changed to oral Levaquin IS and acapella at bedside continue on Duonebs COPD, not in acute exacerbation Chronic respiratory insufficiency Continue Spiriva Continue inhaled corticosteroid Continue supplemental oxygen as needed Continue to monitor respiratory status Home oxygen walk test ordered Generalized deconditioning Continue participation with PT, home with home health PT versus rehab recommended Constipation, resolved continue Pericolace and Miralax scheduled daily Dulcolax suppository prn monitor for BM DVT prophylaxis Heparin Discussed Condition With: patient, nursing staff, Dr. Perrin, GI service Discharge Planning: Discharge pending GI and general surgery clearance and ability to tolerate diet.
[2017-12-25] MEDS: Senna/Docusate Sodium 8.6/50 MG Tablet PO SCH ×2 (08:38→20:06)
[2017-12-25] MEDS: Polyethylene Glycol 3350 17 GM Packet PO SCH (08:38)
[2017-12-25] MEDS: guaiFENesin 600 MG ER Tablet PO SCH ×2 (08:38→20:06)
[2017-12-25] MEDS: Morphine Sulfate 30 MG SR Tablet PO SCH ×2 (08:39→20:06)
[2017-12-25] MEDS: Tiotropium Bromide 18 MCG/ACT Inhaler INH SCH (08:50)
[2017-12-25] MEDS: Budesonide-Formoterol 160/4.5 MCG 6 GM Inhaler INH SCH ×2 (08:50→20:07)
[2017-12-25] MEDS ORDERED: levoFLOXacin 750 MG Tablet PO SCH (09:00)
--- NOTE | 2017-12-25 10:07 | P.DS ---
Date of admission: 12/16/17 06:58 Primary care physician: No Primary Care Physician Attending physician on discharge: Devora Perrin Brief History from admission: This is a 57-year-old female with a unremarkable past medical history who presents with 1 day history of severe abdominal pain. She states this started yesterday afternoon. She denies alcohol use, and specifically states that she had one beer about a week ago and one lola about a month ago. She states that her mother had a history of gallstones. She endorses nausea/vomiting. Her emesis is nonbilious and not bloody. She denies any hematemesis or bright red blood per rectum. She denies any fever/chills. Denies any other symptoms including shortness of breath chest pain. In the emergency department she has severely elevated lipase greater than 15,000. CT scan is positive for acute pancreatitis. MRCP does not demonstrate any stone. Right upper quadrant ultrasound does not demonstrate dilated biliary ducts. The remainder of the review of systems is negative unless otherwise stated. DS: Diagnosis - Discharge Diagnosis (1) Acute kidney injury Status: Acute (2) Transaminitis Status: Acute (3) Pancreatitis Status: Acute (4) Risk for falls Status: Acute (5) Gallbladder polyp Status: Acute (6) Pneumonia Status: Acute (7) COPD (chronic obstructive pulmonary disease) Status: Acute DS: Medications - Discharge Medications Prescriptions: budesonide-formoterol [Symbicort] 2 puff INH BID #1 inhaler nicotine 1 patch TRANSDERMAL DAILY #4 ea pantoprazole 40 mg PO DAILY #30 tab tiotropium bromide [Spiriva with HandiHaler] 18 mcg INH DAILY #1 inh DS: Summary Hospital Course: Patient admitted with severe abdominal pain with elevated lipase of 15,000. CT scan revealed acute pancreatitis. MRCP did not show any evidence of stone. Right upper quadrant ultrasound did not demonstrate any dilated biliary ducts. Patient denied alcohol use and lipid profile was WNL. Patient was seen in consultation by GI and pulmonology. Chest imaging showed no evidence of PE or pulmonary masses. Patient likely with COPD at baseline. Pulmonary medicine signed off on patient recommended PFTs and sleep study as outpatient. 12/23/17, patient underwent EGD revealing gastritis and duodenal inflammation. Patient was also seen in consultation by general surgery for evaluation of gallbladder polyp and no surgical intervention was recommended. Dr. Lanier recommended repeat CT in 6-8 months. Her liver function test returned within normal limits. Patient improved clinically. GI service signed off. Patient was able to tolerate a diet. Patient participated with physical therapy and home health PT was recommended. Patient underwent home oxygen walk test and required oxygen at the time of discharge. Patient discharged in stable condition. - Time Spent with Patient Total time spent providing and/or coordinating discharge services: Greater than 30 minutes Exam Vital signs: Vital Signs 12/24/17 12:00 12/24/17 15:00 12/24/17 16:00 Temperature 98.8 F 98.1 F Pulse Rate 70 63 Respiratory Rate 17 16 18 Blood Pressure 106/56 L 100/61 Pulse Oximetry 93 L 91 L 12/24/17 17:08 12/24/17 17:32 12/24/17 19:00 Temperature Pulse Rate Respiratory Rate 14 15 Blood Pressure Pulse Oximetry 93 L 12/24/17 20:00 12/24/17 21:56 12/25/17 00:00 Temperature 98.1 F Pulse Rate 60 69 Respiratory Rate 18 18 Blood Pressure 98/57 L 105/68 98/55 L Pulse Oximetry 94 L 95 12/25/17 01:14 12/25/17 01:21 12/25/17 03:09 Temperature Pulse Rate 80 Respiratory Rate 18 Blood Pressure Pulse Oximetry 96 12/25/17 04:00 12/25/17 07:00 12/25/17 08:35 Temperature 98.1 F 98.7 F Pulse Rate 68 71 68 Respiratory Rate 18 16 Blood Pressure 100/58 L 98/54 L 109/51 L Pulse Oximetry 96 90 L Intake & Output 12/24/17 12/25/17 12/25/17 18:59 06:59 18:59 Intake Total 1700 / 1700 Output Total 200 / 200 Balance 1500 / 1500 Weight 120.5 kg Intake: IV 200 / 200 Zosyn 4.5 GM Premix 4.5 gm In 200 / 200 100 ml @ 200 mls/hr IV.SIG Q6H CAROL ANN Rx#:[id number] Oral 1000 / 1000 Anesthesia Amount 500 / 500 Output: Urine 200 / 200 Other: # Voids 4 3 Date of Last Bowel Movement 12/16/17 12/24/17 12/24/17 # Bowel Movements 0 3 Narrative: GENERAL: Well-developed well-nourished female in no acute distress. Awake and alert. Sitting up in bed. SKIN: Warm and dry. HEAD: Atraumatic. Normocephalic. EYES: Pupils equal and round. No scleral icterus. No injection or drainage. ENT: No nasal bleeding or discharge. Mucous membranes pink and moist. NECK: Trachea midline. No JVD. CARDIOVASCULAR: Regular rate and rhythm. RESPIRATORY: No accessory muscle use. Clear to auscultation but diminished at bases. Breath sounds equal bilaterally. GASTROINTESTINAL: Abdomen soft, nondistended, mild tenderness to palpation. MUSCULOSKELETAL: Extremities without clubbing, cyanosis, or edema. No obvious deformities. NEUROLOGICAL: Awake and alert. No obvious cranial nerve deficits. Motor grossly within normal limits. No focal neurologic finding appreciated. Normal speech. PSYCHIATRIC: Angry, argumentative. Results Procedures completed during hospitalization: [facility] [address] [facility]. [facility], [id number] EGD PROCEDURE REPORT EXAM DATE: 12/23/2017 PATIENT NAME: Parisa Carrington MR #: [id number] BIRTHDATE: 1960 ATTENDING: Stas Gonzalez MD ORDER #: [id number] SECURITY INCIDENT RESPONSE ENGINEER: Deanna Hicks STATUS: inpatient INDICATIONS: The patient is a 57 yr old female here for an EGD due to epigastric abdominal pain PROCEDURE PERFORMED: EGD w/ biopsy MEDICATIONS: None and Per Anesthesia. TOPICAL ANESTHETIC: CONSENT: The patient understands the risks and benefits of the procedure and understands that these risks include, but are not limited to: sedation, allergic reaction, infection, perforation and/or bleeding. Alternative means of evaluation and treatment include, among others: physical exam, x-rays, and/or surgical intervention. The patient elects to proceed with this endoscopic procedure. medical equipment was checked for proper function. Hand hygiene and appropriate measures for infection prevention was taken. After the risks, benefits and alternatives of the procedure were thoroughly explained, Informed consent was verified, confirmed and timeout was successfully executed by the treatment team. The patient was anesthetized with topical anesthesia and the Pentax EG-[id number] endoscope was introduced through the mouth and advanced to the second portion of the duodenum. Retroflexed views revealed a hiatal hernia The gastroscope was then slowly withdrawn and removed. ESOPHAGUS: There was LA Class A esophagitis noted. STOMACH: There was erythematous moderate gastritis in the gastric antrum. A biopsy was performed using cold forceps. Sample sent for histology. DUODENUM: Moderate duodenal inflammation was found in the bulb and second portion of the duodenum. ADVERSE EVENTS: There were no complications. IMPRESSIONS: 1. There was LA Class A esophagitis noted 2. There was erythematous gastritis in the gastric antrum; biopsy was performed 3. Duodenal inflammation was found in the bulb and second portion of the duodenum 4. Retroflexed views revealed a hiatal hernia RECOMMENDATIONS: 1. Await biopsy results. Biopsy results will not be ready for 7-10 days. If you don't hear from us in two weeks, call our office for biopsy results. 2. Anti-reflux regimen 3. Continue PPI PATIENT CONDITION: stable DISPOSITION: Inpatient REPEAT EXAM: Return 3 months EGD pending biopsy results Stas Gonzalez MD eSigned: Stas Gonzalez MD 12/23/2017 10:48 AM Completed studies during hospitalization: Pending at discharge 12/23/17 13:51 Surgical [PTH] Routine - Impressions ITS Impressions Cholangiopancreatography MRI 12/16/17 00:00 CONCLUSION: 1. The head of the pancreas is enlarged with diffuse inflammatory change consistent with the history of pancreatitis. 2. Small apparent gallbladder wall polyp again noted with no definite evidence of cholelithiasis. No filling defect in common bile duct which is at the upper limits of normal in size. Gallbladder Ultrasound 12/16/17 08:46 CONCLUSION: 1. No evidence of cholelithiasis. There is a small nonmobile echogenic structure along the gallbladder wall which could represent a small polyp. There is no gallbladder wall thickening or biliary obstruction. 2. Limited visualization of pancreas. The head appeared grossly unremarkable. Chest CTA 12/19/17 00:00 CONCLUSION: Venous Doppler Study 12/19/17 00:00 CONCLUSION: 1. No evidence of deep venous thrombosis. 2. Small Beth's cyst in the right popliteal fossa. Bile Acid Absorption NM 12/21/17 13:00 CONCLUSION: 1. No cystic duct or common duct obstruction 2. Moderate gastroenteric reflux with CCK. Chest X-Ray 12/22/17 00:00 CONCLUSION: Mild hazy opacity remains in both lung bases and possible slight right lung base consolidation. Abdomen/Pelvis CT 12/23/17 00:00 CONCLUSION: 1. Acute pancreatitis with findings similar to December 20. 2. Basilar lung consolidation with findings similar to December 20. Discharge Plan - Discharge Disposition Patient Disposition: W/Home Health Service - Discharge Condition Condition: Stable - Discharge Order Discharge Orders: Discharge Order (Routine); Ordered 12/25/17 Ordered By: Estella Giles - Discharge Details Anticipated Discharge Date: 12/25/17 - Physicians Team Primary Care Provider: Primary Care Alannah Jennings Attending Provider: Devora Perrin Other Providers: Mile Gomez MD ; [employer],Insurance
--- NOTE | 2017-12-25 10:10 | P.DCO ---
- Physical Therapy Order: Evaluate and treat, Improve ambulation, Strength and gait training - Certification I have seen patient Parisa Carrington on 12/25/17. My clinical findings support the need for the requested home health care services because: Limited mobility due to disease progression, Patient has SOB, Deconditioned with increased weakness, Limited ability to care for self, High risk of falls I certify that my clinical findings support that this patient is homebound because: Hx COPD - exertion dyspnea/weakness, Unsteady gait/balance, Unsafe to leave home unassisted, Unable to use public transportation
--- NOTE | 2017-12-25 11:39 | P.PN ---
Subjective Interval history: Follow-up acute pancreatitis. Per nurse patient complained of abdominal pain and doesn't want to be discharged. The patient is in the bed, appears in nad. However when I approached the patient she started crying in pain says she has abdominal pain. The patient is not tachycardic, BP is normal. She is however conversant thereafter, very demanding and is arguing with me; doesn't appear in pain anymore. Dog in the room. Many clothes in the room also family it seems is sleeping overnight. Also with pain seeking behavior. It seems patient has secondary gain as might not have a place to live and she is fighting the discharge. Patient did appeal for discharge. Case management is following. Physical Exam Vital signs: Vital Signs 12/24/17 12:00 12/24/17 15:00 12/24/17 16:00 Temperature 98.8 F 98.1 F Pulse Rate 70 63 Respiratory Rate 17 16 18 Blood Pressure 106/56 L 100/61 Pulse Oximetry 93 L 91 L 12/24/17 17:08 12/24/17 17:32 12/24/17 19:00 Temperature Pulse Rate Respiratory Rate 14 15 Blood Pressure Pulse Oximetry 93 L 12/24/17 20:00 12/24/17 21:56 12/25/17 00:00 Temperature 98.1 F Pulse Rate 60 69 Respiratory Rate 18 18 Blood Pressure 98/57 L 105/68 98/55 L Pulse Oximetry 94 L 95 12/25/17 01:14 12/25/17 01:21 12/25/17 03:09 Temperature Pulse Rate 80 Respiratory Rate 18 Blood Pressure Pulse Oximetry 96 12/25/17 04:00 12/25/17 07:00 12/25/17 08:35 Temperature 98.1 F 98.7 F Pulse Rate 68 71 68 Respiratory Rate 18 16 Blood Pressure 100/58 L 98/54 L 109/51 L Pulse Oximetry 96 90 L 12/25/17 11:33 Temperature Pulse Rate Respiratory Rate Blood Pressure Pulse Oximetry 93 L Intake & Output 12/24/17 12/25/17 12/25/17 18:59 06:59 18:59 Intake Total 1700 / 1700 Output Total 200 / 200 Balance 1500 / 1500 Weight 120.5 kg Intake: IV 200 / 200 Zosyn 4.5 GM Premix 4.5 gm In 200 / 200 100 ml @ 200 mls/hr IV.SIG Q6H CAROL ANN Rx#:[id number] Oral 1000 / 1000 Anesthesia Amount 500 / 500 Output: Urine 200 / 200 Other: # Voids 4 3 Date of Last Bowel Movement 12/16/17 12/24/17 12/24/17 # Bowel Movements 0 3 Narrative: GENERAL: This is a well-developed, well-nourished female in [facility]. However when I approached the patient she is staring crying in pain holding her abdomen. crying in pain, then demanding and arguing doesn't appear in pain anymore. CARDIOVASCULAR: Regular rate and rhythm without murmurs, gallops, or rubs. RESPIRATORY: Fair air entry bilaterally, poor effort. Clear to auscultation. No accessory muscle use. GASTROINTESTINAL: Abdomen soft, nondistended. Subjectively tender diffusely. MUSCULOSKELETAL: No cyanosis or edema. Bilateral calves supple and nontender. NEURO: Awake. Able to move all extremities spontaneously. No focal neurological deficits. Normal speech. PSYCHIATRIC: Mood is labile, crying in pain, then demanding and arguing doesn' t appear in pain anymore. Results - Labs CBC & Chem 7: 12/23/17 07:13 12/23/17 07:13 Assessment and Plan - Plan 57-year-old female admitted secondary to acute pancreatitis Abdominal pain, persistent Acute Severe pancreatitis, uncertain etiology GI following, s/p EGD this am showing gastritis and esophagitis. Repeat CT abd/ pelvis with no change. Repeat amylase and lipase levels within normal limits. Patient tolerating soft diet. She continues to complain of abdominal cramping and a bubble like sensation. Discussed with GI, patient cleared for discharge may follow-up as outpatient for possible colonoscopy and/or EUS. GS following, appreciate assistance. Recommends repeat imaging in 6-8 months for reevaluation of gallbladder polyp. No surgical intervention at this time. Continue on IV antiemetics prn Continue on PPI 12/25 Cleared for DC by consultants. Discharge placed. Patient refusing discharge and has requested an appeal. Concern for malingering/possible drug- seeking behavior. Acute kidney injury, resolved Follow renal function Acute liver injury, resolved Hepatitis profile negative Continue to follow LFTs History of left leg DVT previously on Xarelto US negative for DVT NO PE NOTED ON CTA Xarelto discontinued History of lung masses PNA CT chest showed increased density at the lower lobes bilaterally, emphysematous changes in the upper lungs, vague density posterior upper lobes bilaterally likely related to atelectasis, mild right pleural effusion Completed antibiotic treatment course IS and acapella at bedside continue on Duonebs COPD, not in acute exacerbation Chronic respiratory insufficiency Continue Spiriva Continue inhaled corticosteroid Continue supplemental oxygen as needed Continue to monitor respiratory status Patient failed oxygen walk test. CM assisting oxygen for home use at discharge Generalized deconditioning Continue participation with PT, home with home health PT versus rehab recommended Constipation, resolved continue Pericolace and Miralax scheduled daily Dulcolax suppository prn monitor for BM DVT prophylaxis Heparin Discussed Condition With: patient, nursing staff, CM Discharge Planning: Patient is cleared for DC by consultants. She however did appeal the discharge. CM is following.
--- NOTE | 2017-12-25 14:28 | P.PNGI ---
Subjective Interval history: Pt expressing concerns regarding her Atrovent medication, states that is the reason she came to the hospital not for her pancreatitis. Still having some abdominal pain. However, pt has been tolerating food without difficulty. Denies any nausea and vomiting. BM yesterday. Discussed with her and boyfriend in length regarding pancreatitis, and home discharge instructions to include complete avoidance of alcohol and low fat diet. <Chary Jarquin - Last Filed: 12/25/17 14:24> Physical Exam Vital signs: Vital Signs 12/24/17 15:00 12/24/17 16:00 12/24/17 17:08 Temperature 98.1 F Pulse Rate 63 Respiratory Rate 16 18 14 Blood Pressure 100/61 Pulse Oximetry 91 L Pulse Oximetry [Resting on Room Air] Pulse Oximetry [Resting with Oxygen] 12/24/17 17:32 12/24/17 19:00 12/24/17 20:00 Temperature Pulse Rate 60 Respiratory Rate 15 18 Blood Pressure 98/57 L Pulse Oximetry 93 L 94 L Pulse Oximetry [Resting on Room Air] Pulse Oximetry [Resting with Oxygen] 12/24/17 21:56 12/25/17 00:00 12/25/17 01:14 Temperature 98.1 F Pulse Rate 69 80 Respiratory Rate 18 Blood Pressure 105/68 98/55 L Pulse Oximetry 95 Pulse Oximetry [Resting on Room Air] Pulse Oximetry [Resting with Oxygen] 12/25/17 01:21 12/25/17 03:09 12/25/17 04:00 Temperature 98.1 F Pulse Rate 68 Respiratory Rate 18 18 Blood Pressure 100/58 L Pulse Oximetry 96 96 Pulse Oximetry [Resting on Room Air] Pulse Oximetry [Resting with Oxygen] 12/25/17 07:00 12/25/17 08:35 12/25/17 11:33 Temperature 98.7 F Pulse Rate 71 68 Respiratory Rate 16 Blood Pressure 98/54 L 109/51 L Pulse Oximetry 90 L 93 L Pulse Oximetry [Resting on Room Air] Pulse Oximetry [Resting with Oxygen] 12/25/17 11:59 12/25/17 12:00 12/25/17 12:20 Temperature 98.2 F Pulse Rate 69 Respiratory Rate 16 16 Blood Pressure 96/56 L Pulse Oximetry 92 L Pulse Oximetry [Resting on Room Air] 88 L Pulse Oximetry [Resting with Oxygen] 93 L Intake & Output 12/24/17 12/25/17 12/25/17 18:59 06:59 18:59 Intake Total 1700 / 1700 Output Total 200 / 200 Balance 1500 / 1500 Weight 120.5 kg Intake: IV 200 / 200 Zosyn 4.5 GM Premix 4.5 gm In 200 / 200 100 ml @ 200 mls/hr IV.SIG Q6H CAROL ANN Rx#:[id number] Oral 1000 / 1000 Anesthesia Amount 500 / 500 Output: Urine 200 / 200 Other: # Voids 4 3 Date of Last Bowel Movement 12/16/17 12/24/17 12/24/17 # Bowel Movements 0 3 - Constitutional no acute distress - Routine HEENT Exam Head: Present: normocephalic, atraumatic - Routine Respiratory Exam Absent: accessory muscle use - Routine Abdominal Exam Present: soft, normoactive bowel sounds. Absent: tenderness, distended - Routine Skin Exam Present: dry, warm - Routine Neurological Exam Present: alert, oriented X3 <Chary Jarquin - Last Filed: 12/25/17 14:24> Vital signs: Vital Signs 12/24/17 15:00 12/24/17 16:00 12/24/17 17:08 Temperature 98.1 F Pulse Rate 63 Respiratory Rate 16 18 14 Blood Pressure 100/61 Pulse Oximetry 91 L Pulse Oximetry [Resting on Room Air] Pulse Oximetry [Resting with Oxygen] 12/24/17 17:32 12/24/17 19:00 12/24/17 20:00 Temperature Pulse Rate 60 Respiratory Rate 15 18 Blood Pressure 98/57 L Pulse Oximetry 93 L 94 L Pulse Oximetry [Resting on Room Air] Pulse Oximetry [Resting with Oxygen] 12/24/17 21:56 12/25/17 00:00 12/25/17 01:14 Temperature 98.1 F Pulse Rate 69 80 Respiratory Rate 18 Blood Pressure 105/68 98/55 L Pulse Oximetry 95 Pulse Oximetry [Resting on Room Air] Pulse Oximetry [Resting with Oxygen] 12/25/17 01:21 12/25/17 03:09 12/25/17 04:00 Temperature 98.1 F Pulse Rate 68 Respiratory Rate 18 18 Blood Pressure 100/58 L Pulse Oximetry 96 96 Pulse Oximetry [Resting on Room Air] Pulse Oximetry [Resting with Oxygen] 12/25/17 07:00 12/25/17 08:35 12/25/17 11:33 Temperature 98.7 F Pulse Rate 71 68 Respiratory Rate 16 Blood Pressure 98/54 L 109/51 L Pulse Oximetry 90 L 93 L Pulse Oximetry [Resting on Room Air] Pulse Oximetry [Resting with Oxygen] 12/25/17 11:59 12/25/17 12:00 12/25/17 12:20 Temperature 98.2 F Pulse Rate 69 Respiratory Rate 16 16 Blood Pressure 96/56 L Pulse Oximetry 92 L Pulse Oximetry [Resting on Room Air] 88 L Pulse Oximetry [Resting with Oxygen] 93 L Intake & Output 12/24/17 12/25/17 12/25/17 18:59 06:59 18:59 Intake Total 1700 / 1700 Output Total 200 / 200 Balance 1500 / 1500 Weight 120.5 kg Intake: IV 200 / 200 Zosyn 4.5 GM Premix 4.5 gm In 200 / 200 100 ml @ 200 mls/hr IV.SIG Q6H CAROL ANN Rx#:[id number] Oral 1000 / 1000 Anesthesia Amount 500 / 500 Output: Urine 200 / 200 Other: # Voids 4 3 Date of Last Bowel Movement 12/16/17 12/24/17 12/24/17 # Bowel Movements 0 3 <Stas Gonzalez - Last Filed: 12/25/17 14:50> Results - Labs CBC & Chem 7: 12/23/17 07:13 12/23/17 07:13 Laboratory Results - last 24 hr 12/18/17 11:30 Puncture Site Left radial Patient Temperature 98.6 O2 Saturation 88 L* ABG pH 7.41 ABG pCO2 35 L ABG pO2 60 L ABG HCO3 22 ABG O2 Content 15.9 ABG Base Excess -2.2 L ABG Methemoglobin 1.6 Jayden Test + Hemoglobin 12.8 Carboxyhemoglobin 1.2 O2 Delivery Device Nasal cannula Liter Flow 4.00 Critical Value Yes <Chary Jarquin - Last Filed: 12/25/17 14:24> - Labs CBC & Chem 7: 12/23/17 07:13 12/23/17 07:13 Laboratory Results - last 24 hr 12/18/17 11:30 Puncture Site Left radial Patient Temperature 98.6 O2 Saturation 88 L* ABG pH 7.41 ABG pCO2 35 L ABG pO2 60 L ABG HCO3 22 ABG O2 Content 15.9 ABG Base Excess -2.2 L ABG Methemoglobin 1.6 Jayden Test + Hemoglobin 12.8 Carboxyhemoglobin 1.2 O2 Delivery Device Nasal cannula Liter Flow 4.00 Critical Value Yes <Stas Gonzalez - Last Filed: 12/25/17 14:50> Assessment and Plan (1) Pancreatitis Status: Acute Code(s): K85.90 - Acute pancreatitis without necrosis or infection, unspecified - Plan - Acute pancreatitis with elevated LFTs [id number] AST-341 ALT-272 Alk phos-[address] abdomen and pelvis W IV contrast --> Ct findings characteristic of an acute pancreatitis with peripancreatic inflammatory changes Pt complaining of epigastric pain that came on suddenly last night, described as burning, constant. Associated nausea and vomiting, denies hematemesis and coffee ground emesis. Denies history of pancreatitis. Unsure of family history of pancreatic issues , states his mother has 1/3 of her stomach. Only new medication is Atrovent, denies any other OTC or prescription medications. Denies history of liver issues, tattoos, history of IV drug use, high risk sexual behaviors. Does report occasional ETOH, states had half a beer last Saturday and prior to that a lola two months ago. She is concerned that she takes multiple pain medications and this could be a factor, (Tizanidine, Percocet, Morphine, Opana, Cymbalta, Xarelto). Reviewed these medications and do not see any as causative factor for pancreatitis. So far MRCP negative for CBD stones (although possibility of passed a stone or sludge), US negative for cholelithiasis. Lipid panel WNL. Labs ruled out autoimmune pancreatitis EGD (12/23) --> There was LA Class A esophagitis noted. There was erythematous gastritis in the gastric antrum; biopsy was performed. Duodenal inflammation was found in the bulb and second portion of the duodenum. Hiatal hernia (12/24) Pt with continued abdominal pain, states possibly some mild improvement. Was able to eat most of her breakfast this morning. Denies nausea and vomiting. States does not want to go home in this much pain. Per nurse yesterday pt was complaining of excruciating pain after EGD and therefore a repeat CT scan was ordered which showed no significant changes. Pt has had no BM however she states she just began eating last night. Seen by GS who states gallbladder is unlikely the etiology for the pancreatitis and low likelihood of stone cause pancreatitis, no plans for surgical intervention (12/25) Pt expressing concerns regarding her Atrovent medication, states that is the reason she came to the hospital not for her pancreatitis. Still having some abdominal pain. However, pt has been tolerating food without difficulty. Denies any nausea and vomiting. BM yesterday. Discussed with her and boyfriend in length regarding pancreatitis, and home discharge instructions to include complete avoidance of alcohol and low fat diet. No repeat labs from today Plan: Low fat diet Avoidance of alcohol OK to DC from a GI standpoint Have pt follow up with GI after DC Pt has been seen and examined by myself and Dr. Gonzalez and this note is written on his behalf <Chary Jarquin - Last Filed: 12/25/17 14:24> (1) Pancreatitis Status: Acute Code(s): K85.90 - Acute pancreatitis without necrosis or infection, unspecified - Plan Seen and examined, still complaining of abdominal distension and spasms which she states she has had for over a year. Doreen had a lenghty discussion with her regarding etiology of pancreatitis and future dietary restrictions including complete abstinence from Etoh. Have recommended outpt fu with gi for colonoscopy and possible EUS depending upon clinical course. Discussed with Dr Perrin. - Attending Attestation The exam, history, and the medical decision-making described in the above note were completed with the assistance of the mid-level provider. I reviewed and agree with the findings presented. I attest that I had a [id number] encounter with the patient on the same day, and personally performed and documented my assessment and findings in the medical record. <Stas Gonzalez - Last Filed: 12/25/17 14:50> <Chary Jarquin - Last Filed: 12/25/17 14:24> (1) Pancreatitis Qualifiers: Chronicity: acute Pancreatitis type: unspecified pancreatitis type Acute pancreatitis complication: unspecified Qualified Code(s): K85.90 - Acute pancreatitis without necrosis or infection, unspecified <Stas Gonzalez - Last Filed: 12/25/17 14:50> (1) Pancreatitis Qualifiers: Chronicity: acute Pancreatitis type: unspecified pancreatitis type Acute pancreatitis complication: unspecified Qualified Code(s): K85.90 - Acute pancreatitis without necrosis or infection, unspecified
[2017-12-25] MEDS: oxyCODONE/Acetaminophen 10/325 Tablet PO PRN (17:57)
[2017-12-26] MEDS: Heparin - SQ 10,000 UNITS/ML Vial SQ SCH ×3 (02:13→16:35)
[2017-12-26] MEDS: oxyCODONE/Acetaminophen 10/325 Tablet PO PRN ×2 (02:20→16:34)
[2017-12-26] MEDS: Budesonide-Formoterol 160/4.5 MCG 6 GM Inhaler INH SCH (08:55)
[2017-12-26] MEDS: Senna/Docusate Sodium 8.6/50 MG Tablet PO SCH (08:57)
[2017-12-26] MEDS: guaiFENesin 600 MG ER Tablet PO SCH (09:00)
[2017-12-26] MEDS: Polyethylene Glycol 3350 17 GM Packet PO SCH (09:01)
[2017-12-26] MEDS: Tiotropium Bromide 18 MCG/ACT Inhaler INH SCH (09:04)
[2017-12-26] MEDS: Morphine Sulfate 30 MG SR Tablet PO SCH (09:15)
--- NOTE | 2017-12-26 13:32 | P.PN ---
Subjective Interval history: Follow-up on patient with acute pancreatitis. Patients appeal for discharge was denied. No acute events noted overnight. Physical Exam Vital signs: Vital Signs 12/25/17 16:00 12/25/17 17:50 12/25/17 19:00 Temperature 98.3 F Pulse Rate 71 Respiratory Rate 17 14 Blood Pressure 101/60 105/55 L Pulse Oximetry 91 L 12/25/17 20:00 12/25/17 20:20 12/25/17 23:00 Temperature 98.5 F Pulse Rate 72 Respiratory Rate 16 16 Blood Pressure 102/77 Pulse Oximetry 92 L 91 L 12/26/17 00:24 12/26/17 01:23 12/26/17 03:00 Temperature 97.9 F Pulse Rate 75 Respiratory Rate 18 16 16 Blood Pressure 115/56 L Pulse Oximetry 94 L 12/26/17 07:58 12/26/17 08:00 12/26/17 11:57 Temperature 99.0 F 98.4 F Pulse Rate 68 65 Respiratory Rate 16 16 17 Blood Pressure 126/61 120/68 Pulse Oximetry 90 L 94 L Intake & Output 12/25/17 12/26/17 12/26/17 18:59 06:59 18:59 Intake Total 1500 / 1500 Output Total 200 / 200 Balance 1300 / 1300 Intake: Oral 1000 / 1000 Anesthesia Amount 500 / 500 Output: Urine 200 / 200 Other: # Voids 3 5 2 Date of Last Bowel Movement 12/24/17 12/24/17 12/24/17 # Bowel Movements 3 Results - Labs CBC & Chem 7: 12/23/17 07:13 12/23/17 07:13 - Imaging Cholangiopancreatography MRI 12/16/17 00:00 CONCLUSION: 1. The head of the pancreas is enlarged with diffuse inflammatory change consistent with the history of pancreatitis. 2. Small apparent gallbladder wall polyp again noted with no definite evidence of cholelithiasis. No filling defect in common bile duct which is at the upper limits of normal in size. Abdomen/Pelvis CT 12/16/17 05:17 CONCLUSION: 1. CT findings characteristic of an acute pancreatitis with peripancreatic inflammatory changes. 2. Patchy airspace disease posterior laterally in the right base. Diagnostic considerations include atelectasis or early infiltrate Gallbladder Ultrasound 12/16/17 08:46 CONCLUSION: 1. No evidence of cholelithiasis. There is a small nonmobile echogenic structure along the gallbladder wall which could represent a small polyp. There is no gallbladder wall thickening or biliary obstruction. 2. Limited visualization of pancreas. The head appeared grossly unremarkable. Chest X-Ray 12/18/17 06:00 CONCLUSION: Right lung base opacity is present may be due to a combination of consolidation and or pleural effusion and left lung base consolidation not present previously. Chest CTA 12/19/17 00:00 CONCLUSION: Venous Doppler Study 12/19/17 00:00 CONCLUSION: 1. No evidence of deep venous thrombosis. 2. Small Beth's cyst in the right popliteal fossa. Abdomen/Pelvis CT 12/20/17 00:00 CONCLUSION: 1. Induration around the pancreas consistent with acute pancreatitis. These findings were present previously and appear unchanged. 2. Areas of consolidation or atelectasis at the lower lungs bilaterally. This finding is worse on the right. This has progressed. Bile Acid Absorption NM 12/21/17 13:00 CONCLUSION: 1. No cystic duct or common duct obstruction 2. Moderate gastroenteric reflux with CCK. Chest X-Ray 12/22/17 00:00 CONCLUSION: Mild hazy opacity remains in both lung bases and possible slight right lung base consolidation. Abdomen/Pelvis CT 12/23/17 00:00 CONCLUSION: 1. Acute pancreatitis with findings similar to December 20. 2. Basilar lung consolidation with findings similar to December 20. - Procedures [place] [place] [facility] Procedure Report [facility] [address] [facility]. [facility], [address] EGD PROCEDURE REPORT EXAM DATE: 12/23/2017 PATIENT NAME: Parisa Carrington MR #: [id number] BIRTHDATE: 1960 ATTENDING: Stas Gonzalez MD ORDER #: [id number] AERONAUTICS TEACHER: Deanna Hicks STATUS: inpatient INDICATIONS: The patient is a 57 yr old female here for an EGD due to epigastric abdominal pain PROCEDURE PERFORMED: EGD w/ biopsy MEDICATIONS: None and Per Anesthesia. TOPICAL ANESTHETIC: CONSENT: The patient understands the risks and benefits of the procedure and understands that these risks include, but are not limited to: sedation, allergic reaction, infection, perforation and/or bleeding. Alternative means of evaluation and treatment include, among others: physical exam, x-rays, and/or surgical intervention. The patient elects to proceed with this endoscopic procedure. medical equipment was checked for proper function. Hand hygiene and appropriate measures for infection prevention was taken. After the risks, benefits and alternatives of the procedure were thoroughly explained, Informed consent was verified, confirmed and timeout was successfully executed by the treatment team. The patient was anesthetized with topical anesthesia and the Pentax [id number] endoscope was introduced through the mouth and advanced to the second portion of the duodenum. Retroflexed views revealed a hiatal hernia The gastroscope was then slowly withdrawn and removed. ESOPHAGUS: There was LA Class A esophagitis noted. STOMACH: There was erythematous moderate gastritis in the gastric antrum. A biopsy was performed using cold forceps. Sample sent for histology. DUODENUM: Moderate duodenal inflammation was found in the bulb and second portion of the duodenum. ADVERSE EVENTS: There were no complications. IMPRESSIONS: 1. There was LA Class A esophagitis noted 2. There was erythematous gastritis in the gastric antrum; biopsy was performed 3. Duodenal inflammation was found in the bulb and second portion of the duodenum 4. Retroflexed views revealed a hiatal hernia RECOMMENDATIONS: 1. Await biopsy results. Biopsy results will not be ready for 7-10 days. If you don't hear from us in two weeks, call our office for biopsy results. 2. Anti-reflux regimen 3. Continue PPI PATIENT CONDITION: stable DISPOSITION: Inpatient REPEAT EXAM: Return 3 months EGD pending biopsy results Stas Gonzalez MD eSigned: Stas Gonzalez MD 12/23/2017 10:48 AM Assessment and Plan - Plan 57-year-old female admitted secondary to acute pancreatitis Patient discharged yesterday but appealed discharge. Appeal denied by patients insurance carrier. No acute events noted overnight. Patient to be discharged today. Abdominal pain, persistent Acute Severe pancreatitis, uncertain etiology GI following, s/p EGD this am showing gastritis and esophagitis. Repeat CT abd/ pelvis with no change. Repeat amylase and lipase levels within normal limits. Patient tolerating soft diet. She continues to complain of abdominal cramping and a bubble like sensation. Discussed with GI, patient cleared for discharge may follow-up as outpatient for possible colonoscopy and/or EUS. GS following, appreciate assistance. Recommends repeat imaging in 6-8 months for reevaluation of gallbladder polyp. No surgical intervention at this time. Continue on IV antiemetics prn Continue on PPI 12/25 Discharge placed. Patient refusing discharge and has requested an appeal. Concern for malingering/possible drug-seeking behavior. Acute kidney injury, resolved Follow renal function Acute liver injury, resolved Hepatitis profile negative Continue to follow LFTs History of left leg DVT previously on Xarelto US negative for DVT NO PE NOTED ON CTA Xarelto discontinued History of lung masses PNA CT chest showed increased density at the lower lobes bilaterally, emphysematous changes in the upper lungs, vague density posterior upper lobes bilaterally likely related to atelectasis, mild right pleural effusion Completed antibiotic treatment course IS and acapella at bedside continue on Duonebs COPD, not in acute exacerbation Chronic respiratory insufficiency Continue Spiriva Continue inhaled corticosteroid Continue supplemental oxygen as needed Continue to monitor respiratory status Patient failed oxygen walk test. CM assisting oxygen for home use at discharge Generalized deconditioning Continue participation with PT, home with home health PT versus rehab recommended Constipation, resolved continue Pericolace and Miralax scheduled daily Dulcolax suppository prn monitor for BM DVT prophylaxis Heparin Discussed Condition With: patient, nursing staff, CM, Dr. Perrin Discharge Planning: Patient to be discharged today.
== END 2017-12-26 19:20 | disposition home health service (06) ==
LOC: NEPC 02:32 → NEDA 06:58 → NEDH 15:00 → HCPC 12-17 11:30 → N05 12-18 20:46
PROVIDERS: ADMIT Hospitalist; ATTEND Hospitalist
PROC: PANENDO (2017-12-23 10:34)